=== PATIENT | male | born 1965 | race Caucasian/White ===

== ENCOUNTER 2021-12-12 14:52 | Outpatient (CLI) | payer OTHER, SELFPAY | END 2021-12-12 14:53 | disposition home or self-care (01) | LOC: LKVREF 14:54 | PROVIDERS: PCP Internal Medicine; Visit Provider Family Medicine | DX: R10.9 Unspecified abdominal pain (principal); N39.0 Urinary tract infection, site not specified | CPT/HCPCS: 87086 ==

== ENCOUNTER 2021-12-12 15:54 | Inpatient (IN) | payer OTHER, SELFPAY ==
[2021-12-12 16:12] VITALS: BP 127/74; PULSE 82; RESP 18; TEMP 36.9; O2SAT 96; BMI 45.3
--- NOTE | 2021-12-12 16:39 | CRLHL7_ITS ---
For Patients: As a result of the Century Cures Act, medical imaging exams and procedure reports are released immediately into your electronic medical record. You may view this report before your referring provider. If you have questions, please contact your health care provider. INDICATION: Left lower quadrant pain, rule out diverticulitis. History of thyroid, skin, and testicular cancer. TECHNIQUE: CT of the abdomen and pelvis without intravenous contrast. Coronal and sagittal reconstructions. COMPARISON: CT chest, abdomen, pelvis 06/16/2021. FINDINGS: Diffuse hepatic steatosis. Calcified hepatic and splenic granulomas. Cholecystectomy. No biliary dilation. The unenhanced pancreas and adrenal glands are normal in appearance. Incomplete horseshoe kidney morphology. Left renal cortical scarring. Small left renal cyst. There is a 1.3 cm hyperdense lesion in the upper pole of the left kidney which is not well seen on prior exam (series 2, image 53). No hydronephrosis or ureteral dilation. No obstructing urinary calculi identified. The bladder is normal in appearance. Prostate calcifications. Colonic diverticulosis. There is mild wall thickening of the proximal sigmoid colon with surrounding inflammatory fat stranding compatible with acute diverticulitis. There is a focus of extraluminal gas adjacent to the proximal sigmoid colon, with a mild amount of free air scattered throughout the abdomen. Findings are compatible with perforation. No significant free fluid or evidence of abscess. Negative appendix. No small bowel dilation. Postoperative changes of the left inguinal canal. Aortoiliac vascular calcifications. No lymphadenopathy. Degenerative changes of the spine and pubic symphysis. The lung bases are clear. Calcified left hilar lymph nodes compatible with prior granulomatous disease. IMPRESSION: 1. Acute diverticulitis of the proximal sigmoid colon. Mild amount of free air compatible with perforation. No evidence of abscess. 2. Diffuse hepatic steatosis. 3. Indeterminate small hyperdense lesion in the left kidney. This could be further evaluated with nonemergent renal ultrasound. 4. Findings discussed with Amber Urias at 6:09 p.m. on 12/12/2021. Please note that all CT scans at this facility use dose modulation, iterative reconstruction, and/or weight-based dosing when appropriate to reduce radiation dose to as low as reasonably achievable. Dictated by Windy Machado MD @ 12/12/2021 6:01:07 PM (Electronically Signed)
[2021-12-12 16:55] LABS: Lactate* 1.4 mmol/L (0.5-1.9)
--- NOTE | 2021-12-12 17:04 | ED.GENADULT ---
HPI - General Adult General Chief complaint: Abdominal Pain <Amber Urias MD - Last Filed: 12/12/21 20:09> Stated complaint: LOWER ABDOMINAL PAIN <Amber Urias MD - Last Filed: 12/12/21 20:09> Time Seen by Provider: 12/12/21 16:31 <Amber Urias MD - Last Filed: 12/12/21 20:09> Source: patient <Amber Urias MD - Last Filed: 12/12/21 20:09> Mode of arrival: ambulatory <Amber Urias MD - Last Filed: 12/12/21 20:09> Limitations: no limitations <Amber Urias MD - Last Filed: 12/12/21 20:09> History of Present Illness HPI narrative: 56-year-old male coming in today complaining of abdominal pain that started this morning. Pain is located in the suprapubic region radiates the left lower quadrant. He feels nauseated with decreased appetite today. Nothing seems to make it better, movement makes it worse. Patient states that he has 3 bowel movements yesterday and none today-states that this is a fairly normal routine for him. He denies any increased frequency, urgency or dysuria. Patient states that he has had UTIs in the past which have been otherwise asymptomatic. He denies any penile discharge. He has not vomited. Denies any fevers or chills. He was seen in the clinic earlier today and was found to have a UTI with urine grossly positive for signs of infection, elevated CBC. It was recommended that he follow-up in the ER today for potential imaging given the amount of pain he is in. Patient states that the pain is quite significant and takes his breath away. Past medical history is significant for obstructive sleep apnea, obesity, hypertension, hypothyroidism, history of horseshoe kidney. He has also had testicular cancer, papillary carcinoma of the thyroid, leiomyosarcoma. He has had a total thyroidectomy, bilateral knee replacements, bilateral shoulder surgeries. <Amber Urias MD - Last Filed: 12/12/21 20:09> Related Data Home medications: Home Medications Medication Instructions Recorded Confirmed cholecalciferol (vitamin D3) 125 125 mcg PO QDAY 12/12/21 12/12/21 mcg (5,000 unit) capsule hydrochlorothiazide 25 mg tablet 25 mg PO QAM 12/12/21 12/12/21 levothyroxine 175 mcg capsule 175 mcg PO QDAY 12/12/21 12/12/21 losartan 50 mg tablet 50 mg PO QDAY 12/12/21 12/12/21 naproxen sodium 220 mg capsule 440 mg PO QDAY 12/12/21 12/12/21 (Aleve) testosterone cypionate 100 mg/mL 50 mg IM Q2W 12/12/21 12/12/21 intramuscular oil topiramate 100 mg capsule 100 mg PO QDAY 12/12/21 12/12/21 sprinkle,extended release 24 hr <Amber Urias MD - Last Filed: 12/12/21 20:09> Allergies/adverse reactions: Allergies Allergy/AdvReac Type Severity Reaction Status Date / Time No Known Drug Allergies Allergy Verified 12/12/21 16:21 <Amber Urias MD - Last Filed: 12/12/21 20:09> Review of Systems Status of ROS: Reports: 10 or more systems reviewed and unremarkable except as noted in History and below <Amber Urias MD - Last Filed: 12/12/21 20:09> [facility] Medical History: Medical History Abdominal pain <Amber Urias MD - Last Filed: 12/12/21 20:09> Social History: Social History Smoking Status: Former smoker Do you use any of these nicotine containing products: None Second hand tobacco smoke exposure: No How often do you have a drink containing alcohol: monthly or less How often do you have six or more drinks on one occasion: Never AUDIT-C Alcohol total score: 1 Non-prescribed substance use: denies use <Amber Urias MD - Last Filed: 12/12/21 20:09> Exam Narrative: Exam Narrative: Obese, well-developed patient in no acute distress. Alert and oriented. Answers questions appropriately. Mood and affect are appropriate. Thoughts are goal oriented and rational. No tangential or magical thinking noted. Patient speaks in full sentences without needing to catch their breath. HEENT: Normocephalic atraumatic. Pupils are equally round reactive to light. Extraocular muscles are intact. Conjunctivae are moist without any icterus noted. Moist mucous membranes. Posterior pharynx is normal. Neck is soft without any lymphadenopathy or thyromegaly. No masses are appreciated. Cardiovascular: Heart is regular rate and rhythm S1 and S2 are present without any murmurs. Lungs: Clear to auscultation bilaterally no wheezes rhonchi or rales are appreciated. Patient takes deep breaths without any discomfort. Abdomen: Protuberant and soft. He has suprapubic tenderness as well as left lower quadrant tenderness. He has normal bowel he has no peritoneal signs. Extremities: Bilateral lower extremities are without edema. Normal DP and PT pulses. Skin: Well perfused without any obvious rashes. <Amber Urias MD - Last Filed: 12/12/21 20:09> Const: Vital Signs, click to edit/add: Vital Signs - 24 hr 12/12/21 16:12 Temperature 98.5 F Pulse Rate [Right Pulse Oximeter] 82 Respiratory Rate 18 Blood Pressure [Ri ght Upper Arm] 127/74 Pulse Oximetry 96 <Amber Urias MD - Last Filed: 12/12/21 20:09> Course Course Hospital Course: I looked over the labs he had done in the clinic would include a CBC: His white cell count elevated at 15.85. Neutrophils at 83.3. Chemistries were normal aside from a slightly elevated creatinine at 1.4. UA grossly positive for signs of infection. We will go ahead and proceed with adding a lipase, LFTs, CRP and we will do an abdominal CT without contrast. <Amber Urias MD - Last Filed: 12/12/21 20:09> Vital Signs Vital signs: Initial Vital Signs Temperature 98.5 F 12/12/21 16:12 Temperature Source Temporal Artery Scan 12/12/21 16:12 Pulse Rate 82 12/12/21 16:12 Respiratory Rate 18 12/12/21 16:12 Blood Pressure 127/74 12/12/21 16:12 Blood Pressure Mean 91 12/12/21 16:12 Blood Pressure Position Sitting 12/12/21 16:12 Pulse Oximetry 96 12/12/21 16:12 Oxygen Delivery Method 12/12/21 16:12 Vital Signs Temperature 98.5 F 12/12/21 16:12 Pulse Rate 82 12/12/21 16:12 Respiratory Rate 18 12/12/21 16:12 Blood Pressure 127/74 12/12/21 16:12 Pulse Oximetry 96 12/12/21 16:12 Temperature 98.5 F 12/12/21 16:12 Pulse Rate 82 12/12/21 16:12 Respiratory Rate 18 12/12/21 16:12 Blood Pressure 127/74 12/12/21 16:12 Pulse Oximetry 96 12/12/21 16:12 <Amber Urias MD - Last Filed: 12/12/21 20:09> Medical Decision Making MDM Narrative Medical decision making narrative: Labs were unremarkable aside from a slightly elevated CRP. Unfortunately his CT scan did show diverticulitis of the proximal sigmoid colon with perforation. Dr. Damon was consulted. Patient will be admitted for further management. <Amber Urias MD - Last Filed: 12/12/21 20:09> Lab Data Lab results reviewed: Yes I reviewed the patient's lab results <Amber Urias MD - Last Filed: 12/12/21 20:09> Labs: Lab Results 12/12/21 12/12/21 Range/Units 16:50 16:50 Lactate 1.4 (0.5-1.9) mmol/L Total Bilirubin 1.2 (0.1-1.5) mg/dL Direct Bilirubin 0.4 (0.0-0.5) mg/dL AST 27 (12-35) U/L ALT 32 (4-50) U/L Alkaline Phosphatase 68 (40-150) U/L C-Reactive Protein 2.1 H (0.5-1.0) mg/dL Total Protein 7.1 (6.0-8.3) g/dL Albumin 4.5 (3.3-5.0) g/dL Lipase 62 (23-300) U/L <Amber Urias MD - Last Filed: 12/12/21 20:09> Imaging Data CT scan - abdomen: Attestation: I have reviewed the pertinent imaging results. <Amber Urias MD - Last Filed: 12/12/21 20:09> Radiologist's impression: FINDINGS: Diffuse hepatic steatosis. Calcified hepatic and splenic granulomas. Cholecystectomy. No biliary dilation. The unenhanced pancreas and adrenal glands are normal in appearance. Incomplete horseshoe kidney morphology. Left renal cortical scarring. Small left renal cyst. There is a 1.3 cm hyperdense lesion in the upper pole of the left kidney which is not well seen on prior exam (series 2, image 53). No hydronephrosis or ureteral dilation. No obstructing urinary calculi identified. The bladder is normal in appearance. Prostate calcifications. Colonic diverticulosis. There is mild wall thickening of the proximal sigmoid colon with surrounding inflammatory fat stranding compatible with acute diverticulitis. There is a focus of extraluminal gas adjacent to the proximal sigmoid colon, with a mild amount of free air scattered throughout the abdomen. Findings are compatible with perforation. No significant free fluid or evidence of abscess. Negative appendix. No small bowel dilation. Postoperative changes of the left inguinal canal. Aortoiliac vascular calcifications. No lymphadenopathy. Degenerative changes of the spine and pubic symphysis. The lung bases are clear. Calcified left hilar lymph nodes compatible with prior granulomatous disease. IMPRESSION: 1. Acute diverticulitis of the proximal sigmoid colon. Mild amount of free air compatible with perforation. No evidence of abscess. 2. Diffuse hepatic steatosis. 3. Indeterminate small hyperdense lesion in the left kidney. This could be further evaluated with nonemergent renal ultrasound. 4. Findings discussed with Amber Urias at 6:09 p.m. on 12/12/2021. <Amber Urias MD - Last Filed: 12/12/21 20:09> Discharge Plan Discharge Clinical Impression: Diverticulitis of colon with perforation <Amber Urias MD - Last Filed: 12/12/21 20:09> Patient Disposition: Admitted As Inpatient <Amber Urias MD - Last Filed: 12/12/21 20:09> Condition: Stable <Amber Urias MD - Last Filed: 12/12/21 20:09>
[2021-12-12 17:13] LABS: Albumin* 4.5 g/dL (3.3-5.0)
[2021-12-12 17:16] LABS: Alanine Aminotransferase* 32 U/L (4-50); Alkaline Phosphatase* 68 U/L (40-150); Aspartate Amino Transferase* 27 U/L (12-35); Bilirubin Direct* 0.4 mg/dL (0.0-0.5); Bilirubin Total* 1.2 mg/dL (0.1-1.5); Lipase* 62 U/L (23-300); Total Protein* 7.1 g/dL (6.0-8.3)
[2021-12-12 17:19] LABS: C Reactive Protein* 2.1 mg/dL (0.5-1.0)
[2021-12-12] MEDS: ERTAPENEM 1 GM in 0.9 % SODIUM CHLORIDE Mini-bag 100 ML IVPB (19:51)
[2021-12-12 19:54] VITALS: BP 174/84; PULSE 90; O2SAT 94
--- NOTE | 2021-12-12 20:54 | P.GSCN_ITS ---
History of Present Illness Consult details Consult date: 12/12/21 Narrative: Patient is a 56-year-old male who presented to clinic today with a one-day history worsening abdominal pain. He woke up this morning he said to a slight ache in his lower abdomen. Throughout the day he felt like his stomach was getting more distended and the pain was getting more severe. Presented to clinic and a UA was performed. The UA was grossly positive, but due to the patient's significant discomfort and exam he was told to go to the emergency department. He has never had pain like this before. He denies any nausea or vomiting. He does report a decrease in appetite. Denies any diarrhea or co nstipation, last bowel movement was earlier today. He has had a colonoscopy, 4 years ago which was within normal limits. Review of Systems Status of ROS: Reports: 6 or more systems reviewed and unremarkable except as noted in History and below Const: Reports: fatigue Endo: Reports: fatigue PFSH PFSH Medical History Abdominal pain Social History Smoking Status: Former smoker Do you use any of these nicotine containing products: None Second hand tobacco smoke exposure: No How often do you have a drink containing alcohol: monthly or less How often do you have six or more drinks on one occasion: Never AUDIT-C Alcohol total score: 1 Non-prescribed substance use: denies use Meds Home Medications and Allergies Home Medications Medication Instructions Recorded Confirmed Type cholecalciferol (vitamin D3) 125 125 mcg PO QDAY 12/12/21 12/12/21 History mcg (5,000 unit) capsule hydrochlorothiazide 25 mg tablet 25 mg PO QAM 12/12/21 12/12/21 History levothyroxine 175 mcg capsule 175 mcg PO QDAY 12/12/21 12/12/21 History losartan 50 mg tablet 50 mg PO QDAY 12/12/21 12/12/21 History naproxen sodium 220 mg capsule 440 mg PO QDAY 12/12/21 12/12/21 History (Aleve) testosterone cypionate 100 mg/mL 50 mg IM Q2W 12/12/21 12/12/21 History intramuscular oil topiramate 100 mg capsule 100 mg PO QDAY 12/12/21 12/12/21 History sprinkle,extended release 24 hr Allergies Allergy/AdvReac Type Severity Reaction Status Date / Time No Known Drug Allergies Allergy Verified 12/12/21 16:21 Exam Narrative: Exam Narrative: General: Alert, oriented, some moderate distress and unable to get comfortable. Respiratory: Equal breath rise bilaterally, maintained on room air CV: Well perfused, tachycardia but regular rhythm Abdomen: Distended obese abdomen, soft but diffusely tender to palpation with guarding and rebound. Previous surgical incisions are well healed. Const: Vital Signs, click to edit/add: Vital Signs - 24 hr 12/12/21 16:12 Temperature 98.5 F Pulse Rate [Right Pulse Oximeter] 82 Respiratory Rate 18 Blood Pressure [Ri ght Upper Arm] 127/74 Pulse Oximetry 96 Documenting provider has reviewed patient's vital signs: yes Results Labs Labs: Abnormal lab results 12/12/21 Range/Units 16:50 C-Reactive Protein 2.1 H (0.5-1.0) mg/dL Diabetes panel 12/12/21 Range/Units 16:50 AST 27 (12-35) U/L ALT 32 (4-50) U/L Alkaline Phosphatase 68 (40-150) U/L Total Protein 7.1 (6.0-8.3) g/dL Albumin 4.5 (3.3-5.0) g/dL Calcium panel 12/12/21 Range/Units 16:50 Albumin 4.5 (3.3-5.0) g/dL Adrenal panel 12/12/21 Range/Units 16:50 Total Bilirubin 1.2 (0.1-1.5) mg/dL AST 27 (12-35) U/L ALT 32 (4-50) U/L Alkaline Phosphatase 68 (40-150) U/L Total Protein 7.1 (6.0-8.3) g/dL Albumin 4.5 (3.3-5.0) g/dL All other labs normal. Imaging Abdomen CT scan report/results: report reviewed and image reviewed Assessment and Plan Assessment and plan (1) Diverticulitis of colon with perforation: Status: Acute Plan Patient is a 56-year-old male who presents with a one-day history worsening diffuse abdominal pain. Labs are significant for leukocytosis and elevated CRP. CT scan demonstrates diverticulitis of the proximal sigmoid colon with perforation and evidence of free air and fluid. On exam patient does demonstrate peritonitis. Given these findings and the patient's presentation different treatment options were reviewed, with the recommendation to proceed with emergency surgery. Risks and benefits of the procedure were discussed at length with the patient and his . Would plan to proceed with an exploratory laparotomy, colonic resection and end ostomy versus diverting ileostomy. Risks of procedure included but were not limited to: Bleeding, infection, risk of damage to surrounding structures, possible need for additional procedures and postop complication such as kidney injury, pneumonia, DVT and PE. All questions and concerns were addressed with patient agreeing to proceed. -IV ertapenem given in the emergency department -NPO and IV fluids -OR for exploratory laparotomy
[2021-12-12 20:59] LABS: PCR FLU A Negative PCR FLU A (Negative); PCR FLU B Negative PCR FLU B (Negative); SARS PCR* Negative SARS-CoV-2 (Negative)
--- NOTE | 2021-12-12 21:55 | W.PM.NB ---
Nerve Block Nerve Block Time Seen by Provider: 20:50 Date Seen: 12/12/21 Type of block requested by surgeon for post-operative analgesia: TAP Side: bilateral Time out performed: Yes Verification of patient name: Yes Verification of date of : Yes Site marking: site marked Name of person performing procedure: robe Assistants, if any: paco Continuous monitoring Was continuous monitoring of O2 sat, B/P, classroom monitor, recorded every 15 minutes?: Yes Procedure Checklist: sterile prep and needles Ultrasound guided. Images saved: Yes Medications given in 5ml increments after negative aspiration: Marcaine %: 0.25 mL: 30 Needle gauge: 20 and Exparel mL: 10 Needle gauge: 20 Patient tolerated procedure well: Yes Block Charges Block Charge (with Pro Fee): TAP Bilateral Use of Ultrasound Machine for Block: Yes- US Guidance/pain block
--- NOTE | 2021-12-12 22:04 | PM.IMCN1 ---
Date of Consult Patient: [facility] Patient Consult date: 12/12/21 Requesting Physician: General Surgery Primary Care Provider: Oliver Lilly MD Consult Narrative Reason for consult: Postoperative management of medical conditions Narrative: Shad Neri Jr is a 56 year old man was in his usual state of health until he awakened this morning. At 1st he thought he might have a recurrent bladder infection. He has had these for a while since his orchiectomy for left testicular leiomyosarcoma in 2016. Described as suprapubic and radiating to left quadrant. 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 Was only able to work until noon hour, pain became so intense that he decided to seek medical attention at that time. Evaluated in [facility] found to have a white blood cell count that was rather elevated plus urinalysis suggested urinary tract infection. Exam however suggested diffuse abdominal discomfort. Patient referred to the emergency department. In the emergency department patient had peritoneal signs. Analgesics helped decrease the pain. CT scan of the abdomen and pelvis obtained revealed ruptured sigmoid diverticulum with free air in the abdomen. Surgeon assessed and recommended urgent surgery. He finally agreed to this. He deliberated for a while with his and eventually elected to proceed with urgent surgery. Review of Systems Status of ROS: Reports: 10 or more systems reviewed and unremarkable except as noted in History and below Narrative: His hard worker. Has no real physical limitations to carry out his construction work. Denies chest heaviness, pressure, tightness, or pain. Denies syncope or near-syncope. Denies nausea vomiting. Denies dyspnea. Denies palpitations. Denies urinary urgency, frequency, hematuria, or dysuria. Had 3 bowel movements yesterday and none today. Denies fevers, rigors, diaphoresis. No recent trauma or injury. No recent blood loss. No recent travel. [facility] Medical History Abdominal pain Colonoscopy causing post-procedural bleeding CPAP (continuous positive airway pressure) dependence Diverticulosis Essential (primary) hypertension Horseshoe kidney Hypothyroidism associated with surgical procedure Leiomyosarcoma Obesity, morbid, BMI 40.0-49.9 Obstructive sleep apnea Papillary thyroid carcinoma Polycythemia Recurrent urinary tract infection Surgical History Status post total knee replacement, left Social History Smoking Status: Former smoker Do you use any of these nicotine containing products: None Second hand tobacco smoke exposure: No How often do you have a drink containing alcohol: monthly or less How often do you have six or more drinks on one occasion: Never AUDIT-C Alcohol total score: 1 Non-prescribed substance use: denies use Meds Home Medications and Allergies Home Medications Medication Instructions Recorded Confirmed Type cholecalciferol (vitamin D3) 125 125 mcg PO QDAY 12/12/21 12/12/21 History mcg (5,000 unit) capsule hydrochlorothiazide 25 mg tablet 25 mg PO QAM 12/12/21 12/12/21 History levothyroxine 175 mcg capsule 175 mcg PO QDAY 12/12/21 12/12/21 History losartan 50 mg tablet 50 mg PO QDAY 12/12/21 12/12/21 History naproxen sodium 220 mg capsule 440 mg PO QDAY 12/12/21 12/12/21 History (Aleve) testosterone cypionate 100 mg/mL 50 mg IM Q2W 12/12/21 12/12/21 History intramuscular oil topiramate 100 mg capsule 100 mg PO QDAY 12/12/21 12/12/21 History sprinkle,extended release 24 hr Allergies Allergy/AdvReac Type Severity Reaction Status Date / Time No Known Drug Allergies Allergy Verified 12/12/21 16:21 Exam Narrative: Exam Narrative: He is sitting at the exam table with legs dangling. Talkative. Appropriately anxious. Cooperative. No acute distress. Alert, oriented to self, place, time, situation. Mood and affect are congruent. Hearing is preserved, symmetric, bilaterally. Tight oral aperture. Moist buccal mucosa. Dentition in good repair. Midline nasal septum. Normal nasal mucosa. Normal conjunctivae. No icterus or injection. Pupils equally round and reactive to light and accommodation. Extraocular muscles are intact. Full neck. Midline trachea. Thyroidectomy scar. Lungs clear to auscultation. No CVA tenderness. Heart tones with regular rhythm, normal S1-S2, without murmur, gallop, or rub. Abdomen is quiet. Distended. Tender to touch. Extremities with trace pedal and pretibial edema bilaterally. No focal motor neurologic deficits. Skin is warm, dry, intact. Const: Vital Signs, click to edit/add: Vital Signs - 24 hr 12/12/21 16:12 12/12/21 19:54 Temperature 98.5 F Pulse Rate [Right Pulse Oximeter] 82 90 Respiratory Rate 18 Blood Pressure [Ri ght Upper Arm] 127/74 174/84 H Pulse Oximetry 96 94 Documenting provider has reviewed patient's vital signs: yes Labs Labs: Liver Function 12/12/21 Range/Units 16:50 Total Bilirubin 1.2 (0.1-1.5) mg/dL Direct Bilirubin 0.4 (0.0-0.5) mg/dL AST 27 (12-35) U/L ALT 32 (4-50) U/L Alkaline Phosphatase 68 (40-150) U/L Albumin 4.5 (3.3-5.0) g/dL Imaging CT scan - abdomen: Attestation: I have reviewed the pertinent imaging results. Radiologist's impression: Perforated sigmoid diverticulum with free air in the abdomen. Assessment and Plan Assessment and plan (1) Diverticulitis of colon with perforation: Status: Acute (2) Abdominal pain: Status: Acute (3) UTI (urinary tract infection): Status: Acute (4) Recurrent urinary tract infection: Status: Acute (5) Horseshoe kidney: Problem comment: s/p multiple surgeries for the same in remote past Status: Acute (6) Leiomyosarcoma: Problem comment: Left testicle, spermatic cord, pathological stage [id number], dx 04/2016, s/p left orchiectomy and inguinal lymph node dissection. No adjuvant chemotherapy given since benefit is considered limited. Status: Acute (7) Obesity, morbid, BMI 40.0-49.9: Status: Acute (8) CPAP (continuous positive airway pressure) dependence: Status: Acute (9) Obstructive sleep apnea: Problem comment: on CPAP Status: Acute (10) Essential (primary) hypertension: Status: Acute (11) Polycythemia: Problem comment: Followed by hematology/oncology Status: Acute (12) Hypothyroidism associated with surgical procedure: Problem comment: Total thyroidectomy followed by HUITRON for treatment of thyroid papillary carcinoma Status: Acute (13) Papillary thyroid carcinoma: Problem comment: Dx 11/2016, s/p total thyroidectomy followed by HUITRON Status: Acute Plan 1. Discussed with the emergency department physician. Also discussed with the general surgeon. 2. Discussed with patient and his . Addressed their concerns. Answered their questions. They are agreeable to proceed with the urgent surgery. 3. Will likely need aggressive postoperative management efforts including pulmonary hygiene. I asked the patient's to make arrangements for bringing the patient's CPAP machine to the hospital so he can use this postoperatively. 4. Will consult respiratory therapy to assist with postoperative pulmonary hygiene efforts. 5. Will hold antihypertensives for now. Will monitor his need for this as time evolves. 6. Will administer his levothyroxine intravenously, half of the oral dose.
[2021-12-13] VITALS (22 sets, daily range): BP systolic 101–151; BP diastolic 45–88; PULSE 6–77; RESP 16–20; TEMP 36.3–37.1; O2SAT 91–98
--- NOTE | 2021-12-13 02:14 | W.ANESCHARGE ---
Anesthesia Charges Start Date/Time Anesthesia Start Date: 12/12/21 Anesthesia Start Time: 20:54 Stop Date/Time Anesthesia Stop Date: 12/13/21 Anesthesia Stop Time: 02:05 Summary Emergency: Yes
[2021-12-13] MEDS: fentaNYL 100 MCG/2 ML inj 50 MCG IVP ×2 (02:15→02:24)
[2021-12-13] MEDS: HYDROmorphone 0.5 mg/0.5 ml inj IVP ×9 (03:13→23:08)
--- NOTE | 2021-12-13 06:15 | PC.NURSE ---
Pt with stable VS. taking in a few ice chips. Pain has been controlled with Dilaudid 0.5mg IV every couple of hours. He rates his pain 2/10 in his abdomin and in his shoulders. Large abdominal drsg is CDI. Ostomy put out 60cc of bile colored liquid. He does have a few faint BT heard in all quads this am. VSS. T&R with minimal assist.
--- NOTE | 2021-12-13 08:27 | PM.IMPN1 ---
Progress Note: A&P Assessment and plan (1) Diverticulitis of colon with perforation: Status: Acute Assessment and Plan: Will continue to follow with General surgery broad-spectrum antibiotics and plan to repeat laboratory studies in the morning. Patient is receiving adequate DVT prophylaxis. (2) Recurrent urinary tract infection: Problem details: No current signs or symptoms patient is on broad-spectrum antibiotics. Status: Acute Assessment and Plan: Will continue to manage as an outpatient. (3) Horseshoe kidney: Problem details: s/p multiple surgeries for the same in remote past Status: Acute Assessment and Plan: Stable (4) Obesity, morbid, BMI 40.0-49.9: Status: Acute Assessment and Plan: Noted (5) Obstructive sleep apnea: Problem details: on CPAP Status: Acute Assessment and Plan: Continue inpatient CPAP. (6) Essential (primary) hypertension: Problem details: Patient is on multiple medications as an outpatient. Status: Acute Assessment and Plan: Blood pressure stable. Will continue to monitor and manage expectantly. (7) Hypothyroidism associated with surgical procedure: Problem details: Total thyroidectomy followed by HUITRON for treatment of thyroid papillary carcinoma Status: Acute Assessment and Plan: Continue Synthroid replacement. Subjective Time Seen by Provider: 08:27 Date Seen: 12/13/21 Exam Narrative: Exam Narrative: Patient is a 56-year-old gentleman who is in my primary care practice who presented yesterday with abdominal pain. He has found have a perforated diverticulum. He underwent surgical treatment as noted in the medical record. He is a colostomy and is on broad-spectrum antibiotics. He does have a complex past medical history including testicular cancer and thyroid cancer. He is on this morning feeling reasonably well although some what overwhelmed by his current situation. Const: Vital Signs, click to edit/add: Vital Signs - 24 hr 12/12/21 16:12 12/12/21 19:54 12/13/21 02:03 Temperature 98.5 F 97.5 F L Pulse Rate 77 Pulse Rate [Pulse Oximeter] Pulse Rate [Right Pulse Oximeter] 82 90 Respiratory Rate 18 18 Blood Pressure 114/60 Blood Pressure [Ri ght Arm] Blood Pressure [Ri ght Upper Arm] 127/74 174/84 H Pulse Oximetry 96 94 96 12/13/21 02:10 12/13/21 02:15 12/13/21 02:20 Temperature Pulse Rate 71 64 73 Pulse Rate [Pulse Oximeter] Pulse Rate [Right Pulse Oximeter] Respiratory Rate 16 18 20 Blood Pressure 101/53 L 118/54 L 129/64 Blood Pressure [Ri ght Arm] Blood Pressure [Ri ght Upper Arm] Pulse Oximetry 95 98 91 12/13/21 02:25 12/13/21 02:30 12/13/21 02:35 Temperature Pulse Rate 63 63 68 Pulse Rate [Pulse Oximeter] Pulse Rate [Right Pulse Oximeter] Respiratory Rate 20 20 18 Blood Pressure 122/66 122/66 124/72 Blood Pressure [Ri ght Arm] Blood Pressure [Ri ght Upper Arm] Pulse Oximetry 98 96 94 12/13/21 02:50 12/13/21 03:00 12/13/21 03:15 Temperature 97.3 F L 97.3 F L 97.3 F L Pulse Rate 66 Pulse Rate [Pulse Oximeter] 67 64 Pulse Rate [Right Pulse Oximeter] Respiratory Rate 18 18 18 Blood Pressure Blood Pressure [Ri ght Arm] 134/88 136/84 124/74 Blood Pressure [Ri ght Upper Arm] Pulse Oximetry 93 93 12/13/21 03:30 12/13/21 03:35 12/13/21 04:00 Temperature 97.3 F L 97.4 F L 97.9 F Pulse Rate Pulse Rate [Pulse Oximeter] 6 L 65 64 Pulse Rate [Right Pulse Oximeter] Respiratory Rate 18 18 18 Blood Pressure Blood Pressure [Ri ght Arm] 124/74 126/74 128/74 Blood Pressure [Ri ght Upper Arm] Pulse Oximetry 92 95 12/13/21 06:30 12/13/21 07:35 12/13/21 07:56 Temperature 97.5 F L 97.5 F L Pulse Rate 64 Pulse Rate [Pulse Oximeter] 66 68 Pulse Rate [Right Pulse Oximeter] Respiratory Rate 18 18 Blood Pressure Blood Pressure [Ri ght Arm] 101/45 L 106/56 L Blood Pressure [Ri ght Upper Arm] Pulse Oximetry 92 95 Labs Labs: Laboratory Results - last 24 hr 12/12/21 12/12/21 12/12/21 16:50 16:50 Unknown Lactate 1.4 Total Bilirubin 1.2 Direct Bilirubin 0.4 AST 27 ALT 32 Alkaline Phosphatase 68 C-Reactive Protein 2.1 H Total Protein 7.1 Albumin 4.5 Lipase 62 SARS-CoV-2 (PCR) Negative SARS-CoV-2 Influenza Type A (PCR) Negative PCR FLU A Influenza Type B (PCR) Negative PCR FLU B
[2021-12-13] MEDS: LACTATED RINGERS 1000 ML 1,000 ML 125 ML IV ×3 (08:31→23:12)
--- NOTE | 2021-12-13 09:12 | P.GSOP_ITS ---
Operative Note Date of procedure: 12/15/21 Type of Procedure: 1. Exploratory laparotomy 2. Sigmoid colectomy with primary anastomosis 3. Diverting loop ileostomy Procedure Description: After discussing the risks and benefits of the procedure, the patient signed informed consent.? The operative site was marked and the patient was brought to the operating room and placed on the operating table in supine position.? Care was taken to pad the patient's pressure points.?? The patient was then intubated by anesthesia.??An abdominal tap block was applied by Anesthesia to help assist with postoperative pain control. A Garcia catheter was placed. The operative site was then prepped and draped in the usual sterile fashion.? A time-out was then performed. A midline incision was made superior to the umbilicus and down to pubic symphysis with a 10 scalpel. Dissection through subcutaneous tissue was carried out with cautery. The fascia was identified and cauterized. The peritoneum was then incised sharply with Metzenbaum scissors to enter the abdomen. A moderate amount of murky fluid was present within the abdomen upon entry. The incision was carried superior and inferior to allow for adequate visualization. The Omni device was also placed onto the field to assist with retraction. Small bowel appeared healthy and intact. There was a significant amount of intraoperative fat present, with a large omentum within the abdomen. The omentum and small bow el was then packed into the right upper quadrant. The sigmoid colon was identified and an inflamed area with surrounding fibrinous exudate, purulence and small amount of stool was identified in the proximal portion of the sigmoid colon. The surrounding adhesions were dissected off with electrocautery and through blunt dissection. The colon was then mobilized laterally along the white line of Toldt up towards the splenic flexure. This portion of the procedure was difficult secondary to the patient's body habitus and a significant amount of intra-abdominal fat. The transverse colon was identified and the omentum mobilized off the superior aspect of the transverse colon. The splenic colic ligaments were carefully dissected down with a right angle and electrocautery. Care was taken not to injure the spleen at this portion of the procedure and hemostasis was excellent at the end of dissection. Once the proximal dissection was complete attention was then turned to the distal aspect of the sigmoid colon. The patient did have a redundant amount of sigmoid colon with only a small amount of lateral mobilization needed. Throughout the colon the patient had a significant amount of epiploic fat, making the procedure difficult. There was also a significant amount of localized inflammation and fibrinous exudate, with inflamed associated mesentery. A proximal portion of the colon was identified for dissection. This part of the colon was healthy in appearance and soft. A hole in the mesentery was created and the proximal portion of the sigmoid transected with a hand-held SYLVESTER stapler. There was pinpoint bleeding along the staple line. This was controlled with a single interrupted 3-0 Vicryl stitch. A distal portion of the colon was also identified for dissection. A portion of the colon that was healthy in appearance and soft was chosen. A hole in the mesentery was created with cautery and the distal portion of the sigmoid transected with a hand-held SYLVESTER stapler. Staple lines were inspected and appeared intact with no active bleeding. The mesentery was then serially divided with clamps and 2-0 Vicryl ties. There was a moderate amount of bleeding with the vision of the mesenteric vessels. The bleeding was controlled with interrupted 3-0 Vicryl exilvt-mo-pyurs stitches. Once the mesentery was divided the specimen was then passed off to be sent for pathology. Hemostasis was assured and the area irrigated with normal saline. The proximal and distal ends of the transected colon were then reapproximated in a [id number] fashion. Both portions of the colon came together easily with no tension and adequate appearing blood flow through the mesentery. The mesenteric vessels were palpated and widely patent. The proximal and distal end of the colon did have a significant amount of epiploic fat, which was tied off and excised. On the proximal end about 10 cm away from the staple line an enterotomy was made on the anti mesenteric side. This was extended to allow for 1 end of the stapler to be introduced into the lumen. On the distal end of the colon an enterotomy was made about 1 cm away from the cut stable edge. The 2nd arm of the stapler was introduced into the lumen and the 100 mm SYLVESTER stapler brought together. An anastomosis approximately 40 mm in size was created. As the stapler was removed the staple line was evaluated with no evidence of bleeding. The common enterotomy was then closed with 3-0 silk Lembert stitches. A single crotch stitch was applied. The mesenteric defect was closed with a running 3-0 Vicryl stitch. The newly anastomosed colon was then placed within the pelvis, again perfusion appeared adequate with no tension appreciated. Due to the presence of a contaminated field and need for an emergent procedure, the decision was made to proceed with a diverting loop ileostomy. Approximately 20 cm from the terminal ileum a prominent, wide-based small bowel diverticulum was identified. The decision was made to have this portion of the bowel become of the loop ileostomy. A site on the abdomen, just lateral and superior to the umbilicus was identified to bring up the ostomy. A circular segment of skin and underlying subcutaneous fat was excised with cautery. Anterior fascia was identified an a cruciate incision made. The abdominal muscle was divided to identify the posterior fascia where an other cruciate incision was made with cautery. The segment of proposed small bowel was then easily brought up to the abdominal wall without tension or mesenteric twisting Three fascial stitches were made with interrupted 3 0 Vicryl, in order to tack the small bowel to the abdominal wall. Prior to maturation of the ostomy the midline incision was closed. The fascia was brought together with two looped 0 Maxon running suture. The skin was brought together with a hand-held skin stapler. Sterile dressings were applied. Attention was then directed towards the maturation of the loop ileostomy. The diverticulum was transected on the anti mesenteric edge approximately 2[address] everted. The edge of the ostomy was secured to the dermis with circumferential interrupted 3 0 Vicryl suture. The stoma was widely patent and mucosa appeared healthy. An ostomy appliance was applied. ? All counts were correct at the end of the case. The patient was then woken and transported to the recovery area in stable condition. ? The patient tolerated the procedure well. Findings: Perforated proximal sigmoid diverticulitis with purulence and stool contamination. Anesthesia: GETA Surgeon: Malrene Damon MD Estimated blood loss (mL): 150 Condition: stable Disposition: PACU
[2021-12-13 09:20] LABS: Basophils Percent Auto 0.1 % (0.0-3.0); Hematocrit 41.3 % (37.0-53.0); Hemoglobin* 13.5 gm/dL (13.5-17.5); Immature Granulocytes Abs Auto 0.02 K/uL (0.00-0.30); Lymphocytes Percent Auto 3.2 % (20-44); Mean Corpuscular HGB Conc 33 gm/dL (32-36); Mean Corpuscular Hemoglobin 28 pg (26-34); Mean Corpuscular Volume 85 fL (80-100); Monocytes Percent Auto 6.5 % (0.0-11.0); Neutrophils Percent Auto 90.1 % (42.0-72.0); Platelet Count* 205 K/uL (140-440); RDW Coefficient of Variation % 14.2 % (11.5-15.5); Red Blood Count 4.87 m/uL (4.30-5.90); White Blood Count* 19.52 K/uL (4.50-11.00)
[2021-12-13 09:32] LABS: Chloride* 102 mmol/L (96-114); Slide Review Reflex No; Sodium* 134 mmol/L (135-149)
[2021-12-13 09:35] LABS: Blood Urea Nitrogen* 21 mg/dL (7-30); Carbon Dioxide* 25 mmol/L (20-32); Creatinine* 1.4 mg/dL (0.5-1.5); Est. Creatinine Clearance* 59.62; Estimated Glomerular Filt Rate 59 ml/min; Glucose* 202 mg/dL (60-115)
[2021-12-13 09:36] LABS: Calcium* 8.5 mg/dL (8.4-10.6)
[2021-12-13] MEDS: LEVOTHYROXINE 100 MCG TABLET PO (10:27)
[2021-12-13] MEDS: LEVOTHYROXINE 75 MCG TABLET PO (10:27)
--- NOTE | 2021-12-13 10:39 | P.GSPN_ITS ---
Subjective Subjective Interval history: Patient is doing well this morning. He does have pain in his abdomen, but is currently working on getting this controlled with medications. He has not yet gotten up and walked out of bed. Garcia remains in place. He denies any fevers or chills. Not feeling hungry, no reported nausea or vomiting. Overall in very good spirits. Exam Narrative: Exam Narrative: General: Alert and oriented, no acute distress. Lying comfortably in bed. Nontoxic. Abdomen: Midline incision clean/dry/intact. Right-sided ostomy in place with overlying bag. Stoma with beefy red mucosa, and some bowel sweat within bag. Abdomen is distended but soft, tender to palpation without guarding or rebound. Const: Vital Signs, click to edit/add: Vital Signs - 24 hr 12/12/21 16:12 12/12/21 19:54 12/13/21 02:03 Temperature 98.5 F 97.5 F L Pulse Rate 77 Pulse Rate [Pulse Oximeter] Pulse Rate [Right Pulse Oximeter] 82 90 Respiratory Rate 18 18 Blood Pressure 114/60 Blood Pressure [Ri ght Arm] Blood Pressure [Ri ght Upper Arm] 127/74 174/84 H Pulse Oximetry 96 94 96 12/13/21 02:10 12/13/21 02:15 12/13/21 02:20 Temperature Pulse Rate 71 64 73 Pulse Rate [Pulse Oximeter] Pulse Rate [Right Pulse Oximeter] Respiratory Rate 16 18 20 Blood Pressure 101/53 L 118/54 L 129/64 Blood Pressure [Ri ght Arm] Blood Pressure [Ri ght Upper Arm] Pulse Oximetry 95 98 91 12/13/21 02:25 12/13/21 02:30 12/13/21 02:35 Temperature Pulse Rate 63 63 68 Pulse Rate [Pulse Oximeter] Pulse Rate [Right Pulse Oximeter] Respiratory Rate 20 20 18 Blood Pressure 122/66 122/66 124/72 Blood Pressure [Ri ght Arm] Blood Pressure [Ri ght Upper Arm] Pulse Oximetry 98 96 94 12/13/21 02:50 12/13/21 03:00 12/13/21 03:15 Temperature 97.3 F L 97.3 F L 97.3 F L Pulse Rate 66 Pulse Rate [Pulse Oximeter] 67 64 Pulse Rate [Right Pulse Oximeter] Respiratory Rate 18 18 18 Blood Pressure Blood Pressure [Ri ght Arm] 134/88 136/84 124/74 Blood Pressure [Ri ght Upper Arm] Pulse Oximetry 93 93 12/13/21 03:30 12/13/21 03:35 12/13/21 04:00 Temperature 97.3 F L 97.4 F L 97.9 F Pulse Rate Pulse Rate [Pulse Oximeter] 6 L 65 64 Pulse Rate [Right Pulse Oximeter] Respiratory Rate 18 18 18 Blood Pressure Blood Pressure [Ri ght Arm] 124/74 126/74 128/74 Blood Pressure [Ri ght Upper Arm] Pulse Oximetry 92 95 12/13/21 06:30 12/13/21 07:35 12/13/21 07:56 Temperature 97.5 F L 97.5 F L Pulse Rate 64 Pulse Rate [Pulse Oximeter] 66 68 Pulse Rate [Right Pulse Oximeter] Respiratory Rate 18 18 Blood Pressure Blood Pressure [Ri ght Arm] 101/45 L 106/56 L Blood Pressure [Ri ght Upper Arm] Pulse Oximetry 92 95 12/13/21 08:30 Temperature 97.5 F L Pulse Rate Pulse Rate [Pulse Oximeter] 76 Pulse Rate [Right Pulse Oximeter] Respiratory Rate 16 Blood Pressure Blood Pressure [Ri ght Arm] 118/56 L Blood Pressure [Ri ght Upper Arm] Pulse Oximetry 93 Labs/Imaging Labs Labs: WBC increased this am (19). BMP within normal limits, Creatinine stable at 1.4 Imaging Imaging: No new. Progress Note: A&P Assessment and plan (1) Diverticulitis of colon with perforation: Problem details: Patient is postop day 1 exploratory laparotomy, colonic resection and diverting loop ileostomy. Vital signs stable overnight. Labs did demonstrate an increase in his WBC, but patient has remained afebrile. Stoma is patent with some bowel sweat in bag, no evidence of stool or gas. Status: Acute Plan -NPO, okay for sips and ice chips. Will await for return of bowel function prior to initiating diet. -IV fluids -Garcia overnight, okay to removed this morning. Continue to monitor urinary output. -pain controlled with IV Dilaudid, Tylenol and oxycodone p.r.n. will hold off on Toradol given slightly elevated creatinine 1.4. -encourage ambulation -[facility] [place] [place] [facility], will start chemical DVT prophylaxis with Lovenox this evening All other cares per hospitalist, appreciate their assistance. Please call with any acute clinical changes, questions or concerns.
--- NOTE | 2021-12-13 14:44 | PC.NURSE ---
PATIENT PLEASANT AND COOPERATIVE, ALERT AND ORIENTED, UP AD TOMMY WITH STEADY GAIT IN ROOM, SBA IN HALLWAYS X1 TOLERATING WELL, DRESSING TO MEDICAL ABDOMEN CDI, OSTOMY BAG INTACT WITH LIQUID GREEN OUTPUT, PASSING GAS THROUGH STOMA, BOWEL SOUNDS HYPO ACTIVE, RATING PAIN 2-4/10 IN ABDOMEN BEING MANAGED WITH PRN DILAUDID, TOLERATING ICE CHIP, PER SURGEON OKAY FOR ICE CHIPS OR SIPS OF CLEARS BUT VERY LITTLE, PATIENT WATCHED VIDEOS ON OSTOMY MANAGEMENT, WAS ALSO GIVEN WRITTEN EDUCATION, PATIENT ALSO VERBAL EDUCATION, VERBALIZED UNDERSTANDING OF INFORMATION, PATIENT OPEN TO CARRYING FOR OSTOMY BAG AND HAS A GREAT OUT LOOK, SUPPORTIVE AT BEDSIDE, ZAMUDIO REMOVED AND PATIENT HAS BEEN ABLE TO VOID SINCE.
--- NOTE | 2021-12-13 17:43 | PC.NURSE ---
Patient is here after having surgery and ostomy placed. I have started to teach him a little bit on how to manage his stoma. I did ask patient and patient's was present as to who will be managing this. They both agreed he will be the one. Started out by showing him 4 different videos for the [employer] web site. Videos were Living with your ostomy, How to measure your stoma, About your ileostomy, How to apply a one-piece pouch. Also printed off information from care notes for him to review. He has started to put a small amount out of stoma. He has had flatus x2. Also left a message down at the wound center for Donna Masters RN as she will most likely also be seeing him after he is discharge from here. He is up and ambulating. Explain to him that tomorrow we will actually go through the steps of changing his appliance. So far he has no questions.
--- NOTE | 2021-12-13 18:51 | PC.NURSE ---
Pt. is alert and oriented x3, pleasant and cooperative. Pt. ambulated in hallway x3. Tolerated well and gait was steady. Ostomy bag intact w/liquid greenish output. Dressing to abdomen. Pt. verbalizes passing gas through stoma. Bowel sounds are hypoactive. Pt. rated pain 7 when ambulating but 2 when resting. PRN dilaudid administered every 2.5hrs and tolerated well. Pt. tolerated ice chips and is ok'd to advance to clears but only a little. Pt. has been voiding regularly.
[2021-12-13] MEDS: ERTAPENEM 1 GM in 0.9 % SODIUM CHLORIDE Mini-bag 100 ML IVPB (19:52)
[2021-12-14] VITALS (7 sets, daily range): BP systolic 124–150; BP diastolic 49–78; PULSE 70–76; RESP 16–20; TEMP 36.6–37.1; O2SAT 93–98
[2021-12-14] MEDS: HYDROmorphone 0.5 mg/0.5 ml inj IVP ×4 (01:54→13:22)
--- NOTE | 2021-12-14 06:49 | PC.NURSE ---
Shift 7p-7a: Pt. AOx4, following commands, VSS. Pt. ambulating in hallway and to toilet w/o difficulty. Pt. c/o abd pain around surgical area, PRN pain meds administered throughout the night. Ileostomy stooling well, pt. had adequate urine output for shift. Pt. tolerating ice chips, but doesn't want to eat anything yet.
[2021-12-14 07:24] LABS: Basophils Absolute Auto 0.02 K/uL (0.00-0.30); Basophils Percent Auto 0.2 % (0.0-3.0); Eosinophils Absolute Auto 0.03 K/uL (0.00-0.50); Eosinophils Percent Auto 0.3 % (0.0-7.0); Hematocrit 37.3 % (37.0-53.0); Immature Granulocytes Abs Auto 0.03 K/uL (0.00-0.30); Lymphocytes Percent Auto 12.9 % (20-44); Mean Corpuscular HGB Conc 32 gm/dL (32-36); Mean Corpuscular Hemoglobin 28 pg (26-34); Mean Corpuscular Volume 86 fL (80-100); Monocytes Percent Auto 8.3 % (0.0-11.0); Platelet Count* 174 K/uL (140-440); RDW Coefficient of Variation % 14.5 % (11.5-15.5); Red Blood Count 4.32 m/uL (4.30-5.90); White Blood Count* 9.23 K/uL (4.50-11.00)
[2021-12-14] MEDS: LACTATED RINGERS 1000 ML 1,000 ML 125 ML IV ×2 (07:31→17:32)
[2021-12-14 07:43] LABS: Albumin* 3.5 g/dL (3.3-5.0); Chloride* 102 mmol/L (96-114)
[2021-12-14 07:44] LABS: Potassium* 3.5 mmol/L (3.6-5.1); Sodium* 136 mmol/L (135-149)
[2021-12-14 07:46] LABS: Alkaline Phosphatase* 54 U/L (40-150); Aspartate Amino Transferase* 33 U/L (12-35); Bilirubin Total* 0.8 mg/dL (0.1-1.5); Blood Urea Nitrogen* 19 mg/dL (7-30); Carbon Dioxide* 27 mmol/L (20-32); Creatinine* 1.3 mg/dL (0.5-1.5); Estimated Glomerular Filt Rate 65 ml/min; Glucose* 134 mg/dL (60-115); Total Protein* 6.3 g/dL (6.0-8.3)
[2021-12-14 07:47] LABS: Alanine Aminotransferase* 24 U/L (4-50); Calcium* 8.3 mg/dL (8.4-10.6)
[2021-12-14 07:53] LABS: Slide Review Reflex No
[2021-12-14] MEDS: LEVOTHYROXINE 100 MCG TABLET PO (07:53)
[2021-12-14] MEDS: LEVOTHYROXINE 75 MCG TABLET PO (07:53)
--- NOTE | 2021-12-14 09:54 | P.IMPN_ITS ---
Progress Note: A&P Assessment and plan (1) Diverticulitis of colon with perforation: Problem details: Patient is postop day 2 exploratory laparotomy, colonic resection and diverting loop ileostomy. Vital signs stable overnight. Overall patient is making steady progress. No significant bowel output. He has no abdominal pain no fevers or chills. His outpatient medications were reviewed with pharmacy. Will continue current management. Status: Acute Subjective Time Seen by Provider: 09:54 Date Seen: 12/14/21 Interval history: Patient is postoperative partial colonic resection secondary to perforated diverticulum. His diverting ileostomy did have some air past per his ileostomy earlier today. He is feeling well he is up and about and has been urinating without any difficulty. No other problems have developed no nausea no vomiting no fever chills. Exam Narrative: Exam Narrative: EXAM GENERAL: Patient appears comfortable and well. Overweight EYES: No scleral icterus. LYMPH: No supraclavicular or cervical lymphadenopathy. SKIN: Visible skin seen during exam normal or with benign process only. EXT: No dependent lower extremity pedal edema. HEART: Regular rate and rhythm with no murmurs, rubs, or gallops. LUNGS: Clear to auscultation bilaterally with no crackles or wheezes. ABD: Ileostomy noted surgical sites are clean and dry. Hypoactive to absent bowel sounds noted. PSYCH: Good eye contact, speech is not pressured. Const: Vital Signs, click to edit/add: Vital Signs - 24 hr 12/13/21 10:57 12/13/21 15:00 12/13/21 19:00 Temperature 98.6 F 98.8 F 98.1 F Pulse Rate Pulse Rate [Pulse Oximeter] 65 68 77 Pulse Rate [Right Brachial] Respiratory Rate 16 16 16 Blood Pressure [Ri ght Arm] 128/69 135/69 151/70 H Pulse Oximetry 93 93 94 12/13/21 23:00 12/13/21 23:35 12/14/21 03:00 Temperature 98.2 F 97.8 F Pulse Rate 61 Pulse Rate [Pulse Oximeter] 65 Pulse Rate [Right Brachial] Respiratory Rate 16 16 Blood Pressure [Ri ght Arm] 125/59 L 124/61 Pulse Oximetry 95 95 12/14/21 07:00 12/14/21 07:40 Temperature 98.8 F Pulse Rate 71 Pulse Rate [Pulse Oximeter] Pulse Rate [Right Brachial] 76 Respiratory Rate 20 Blood Pressure [Ri ght Arm] 141/78 H Pulse Oximetry 98 Labs Labs: Laboratory Results - last 24 hr 12/14/21 12/14/21 06:47 06:47 WBC 9.23 RBC 4.32 Hgb 12.0 L Hct 37.3 MCV 86 MCH 28 MCHC 32 RDW Coeff of Charmaine 14.5 Plt Count 174 Neut % (Auto) 78.0 H Lymph % (Auto) 12.9 L [place] % (Auto) 8.3 Eos % (Auto) 0.3 Baso % (Auto) 0.2 Neut # (Auto) 7.20 H Lymph # (Auto) 1.20 [place] # (Auto) 0.80 Eos # (Auto) 0.03 Baso # (Auto) 0.02 Abs Immat Gran (auto) 0.03 Sodium 136 Potassium 3.5 L Chloride 102 Carbon Dioxide 27 BUN 19 Creatinine 1.3 Estimated Creat Clear 64.20 Estimated GFR 65 Glucose 134 H Calcium 8.3 L Total Bilirubin 0.8 AST 33 ALT 24 Alkaline Phosphatase 54 Total Protein 6.3 Albumin 3.5
[2021-12-14] MEDS: OXYCODONE 5 MG TABLET PO ×3 (11:46→20:10)
--- NOTE | 2021-12-14 12:21 | P.GSPN_ITS ---
Subjective Subjective Date Seen: 12/14/21 Interval history: Patient is doing well this morning. Pain is getting better and well controlled. Has been tolerating sips and ice chips. No nausea or vomiting. Has passed gas through his stoma, some a liquid output but no stool. Denies any fevers or chills. Has been walking around without difficulty and showered this morning. Exam Narrative: Exam Narrative: General: Alert and oriented, no acute distress. Sitting comfortably in bed. Abdomen: Obese abdomen, midline incision dressing removed with hari in place. Some mild redness on the superior and inferior aspects of the incision. Right- sided stoma in place with bowel sweat in bag. Const: Vital Signs, click to edit/add: Vital Signs - 24 hr 12/13/21 15:00 12/13/21 19:00 12/13/21 23:00 Temperature 98.8 F 98.1 F 98.2 F Pulse Rate Pulse Rate [Pulse Oximeter] 68 77 65 Pulse Rate [Right Brachial] Respiratory Rate 16 16 16 Blood Pressure [Ri ght Arm] 135/69 151/70 H 125/59 L Pulse Oximetry 93 94 95 12/13/21 23:35 12/14/21 03:00 12/14/21 07:00 Temperature 97.8 F 98.8 F Pulse Rate 61 Pulse Rate [Pulse Oximeter] Pulse Rate [Right Brachial] 76 Respiratory Rate 16 20 Blood Pressure [Ri ght Arm] 124/61 141/78 H Pulse Oximetry 95 98 12/14/21 07:40 Temperature Pulse Rate 71 Pulse Rate [Pulse Oximeter] Pulse Rate [Right Brachial] Respiratory Rate Blood Pressure [Ri ght Arm] Pulse Oximetry Documenting provider has reviewed patient's vital signs: yes Progress Note: A&P Assessment and plan (1) Diverticulitis of colon with perforation: Status: Acute Assessment and Plan: Patient is postop day 2 exploratory laparotomy, sigmoidectomy with primary anastomosis and diverting loop ileostomy. He is doing very well postoperatively. Vital signs stable overnight. White blood cell count has normalized and he has remained afebrile. He does have some mild redness around his incision, will need to continue to watch closely for surgical site infection. Given the amount of intraoperative contamination will continue with IV ertapenem and plan to transition to oral antibiotics once he has had return of bowel function. Will also continue with just sips and ice chips for today, patient is denying any significant appetite. -IV fluids -IV and p.o. pain meds as needed -NPO, okay for sips and chips -encourage ambulation, SCDs and Lovenox for DVT prophylaxis -will continue with IV ertapenem, patient will need a total course of 14 days antibiotics
[2021-12-14] MEDS: ENOXAPARIN 30 MG/0.3ML INJ SUBCUT (13:34)
--- NOTE | 2021-12-14 14:36 | PC.NURSE ---
Sat down with patient this afternoon 1:1 and we went through changing his appliance. I explain the steps as i did his change. I explained to him that it is important to not just pull the appliance off fast as you need to protect the underlying skin. Showed him will demo stoma on how to measure the stoma of what is too big and what is too little. currently I measured his stoma to be 38 cm. It is beefy red a little bleeding noted at the incision site. He asked great questions and was very observant as he wants to learn to be able to manage his stoma himself.
--- NOTE | 2021-12-14 19:21 | PC.NURSE ---
Pt up independently in room. Showered, redressed incision which is closed by hari, skin is pink surrounding incision. Pt emptied ileostomy bag independently. Tolerating sips and chips, denies N/V. Friendly and conversational.
--- NOTE | 2021-12-14 20:13 | PC.NURSE ---
[id number]: Pt. up indep. in room. 10mg ativan for 3/10 pain as pt. wanted to try and sleep, successful. Emptying own appliance from ostomy bag. Putting out liquid brown stool. Denies nausea/vomiting/chills/chest pain or pressure. Continues w/sips and chips. RN noted while pt. up in hallway that right calf appeared larger than left. Pt. notes did not notice this, but area not noted to be tender, sore or warm/red. TEDS placed on pt. RN conferred w/Dr. Pablo, no new orders received. Pt. did note that he has not been taking HCTZ for water since hospitalized. This was also mentioned to Dr. Pablo, but no new orders. [employer] updated w/report.
--- NOTE | 2021-12-14 22:05 | PC.NURSE ---
Shift note 19-23: Pt up ad teena, rating abd pain 2-4/10 taking Oxycodone PRN Q4h. Abd drsg CDI, managing own ostomy cares, bag emptied for 250cc brownish/reddish liquid output.
[2021-12-15] MEDS: ERTAPENEM 1 GM in 0.9 % SODIUM CHLORIDE Mini-bag 100 ML IVPB (00:25)
[2021-12-15] MEDS: ENOXAPARIN 30 MG/0.3ML INJ SUBCUT ×2 (00:26→12:48)
[2021-12-15] MEDS: OXYCODONE 5 MG TABLET PO ×6 (00:30→20:51)
[2021-12-15] MEDS: LACTATED RINGERS 1000 ML 1,000 ML 125 ML IV ×3 (02:22→19:09)
[2021-12-15 03:00] VITALS: BP 126/62; PULSE 64; RESP 18; TEMP 36.6; O2SAT 93
--- NOTE | 2021-12-15 06:26 | PC.NURSE ---
23-07: Pt pleasant and cooperative. Ambulating indep. c/o pain with movement, see emar. 200mL greenish brown?output in ostomy bag, pt indep with emptying ostomy. Pt indep with CPAP, O2 sats 93%. Bowel sounds present. Dressing to abdomen?CDI. Trace edema to bilat LE, teds on.
[2021-12-15 06:50] LABS: Basophils Absolute Auto 0.03 K/uL (0.00-0.30); Basophils Percent Auto 0.4 % (0.0-3.0); Eosinophils Absolute Auto 0.09 K/uL (0.00-0.50); Eosinophils Percent Auto 1.3 % (0.0-7.0); Hematocrit 36.1 % (37.0-53.0); Hemoglobin* 11.4 gm/dL (13.5-17.5); Immature Granulocytes Abs Auto 0.03 K/uL (0.00-0.30); Mean Corpuscular HGB Conc 32 gm/dL (32-36); Mean Corpuscular Hemoglobin 28 pg (26-34); Mean Corpuscular Volume 87 fL (80-100); Monocytes Percent Auto 8.9 % (0.0-11.0); Neutrophils Absolute Auto 4.78 K/uL (1.7-7.0); Platelet Count* 174 K/uL (140-440); RDW Coefficient of Variation % 14.2 % (11.5-15.5); Red Blood Count 4.15 m/uL (4.30-5.90); White Blood Count* 6.84 K/uL (4.50-11.00)
[2021-12-15 06:57] LABS: Slide Review Reflex No
[2021-12-15 07:07] LABS: Chloride* 105 mmol/L (96-114); Sodium* 136 mmol/L (135-149)
[2021-12-15 07:08] LABS: Potassium* 3.6 mmol/L (3.6-5.1)
[2021-12-15 07:10] LABS: Creatinine* 1.3 mg/dL (0.5-1.5); Estimated Glomerular Filt Rate 65 ml/min
[2021-12-15 07:11] LABS: Blood Urea Nitrogen* 16 mg/dL (7-30); Calcium* 8.4 mg/dL (8.4-10.6); Carbon Dioxide* 29 mmol/L (20-32); Glucose* 108 mg/dL (60-115)
[2021-12-15 08:00] VITALS: BP 161/81; PULSE 65; RESP 18; TEMP 36.6; O2SAT 95
--- NOTE | 2021-12-15 08:11 | PM.GSPN ---
Subjective Subjective Date Seen: 12/15/21 Interval history: Patient is doing well this morning. He is feeling very hungry. He continues to pass gas through his stoma and liquidy stools. Abdomen is soft and his pain is well controlled. He has been ambulating independently. No acute concerns. Exam Narrative: Exam Narrative: General: Alert and oriented, no acute distress. Lying comfortably in bed. Abdomen: Obese abdomen, soft, appropriately tender over incision sites without guarding or rebound. Stoma with bag in place, gas and liquid stool within bag. Midline incision with hari in place, there is some surrounding redness that blanches and is warm to touch. No drainage from incision sites. Const: Vital Signs, click to edit/add: Vital Signs - 24 hr 12/14/21 11:00 12/14/21 15:57 12/14/21 19:50 Temperature 98.8 F 98.3 F 98.2 F Pulse Rate [Pulse Oximeter] 70 71 Pulse Rate [Right Brachial] 75 70 Respiratory Rate 20 18 18 Blood Pressure [Ri ght Arm] 150/71 H 135/68 132/70 Pulse Oximetry 98 94 97 12/14/21 23:00 12/15/21 03:00 Temperature 98.2 F 97.8 F Pulse Rate [Pulse Oximeter] 71 64 Pulse Rate [Right Brachial] 71 Respiratory Rate 18 18 Blood Pressure [Ri ght Arm] 127/49 L 126/62 Pulse Oximetry 93 93 Documenting provider has reviewed patient's vital signs: yes Progress Note: A&P Assessment and plan (1) Diverticulitis of colon with perforation: Status: Acute Assessment and Plan: Patient is postop day 3 exploratory laparotomy, sigmoidectomy and diverting loop ileostomy for perforated diverticulitis. Overall doing well with evidence of return of bowel function. Vital signs stable overnight and afebrile, labs with no evidence of leukocytosis. He does have some continued redness around his incision, will continue to watch closely for possible did developing surgical site infection. Will also continue with antibiotics, can transition to oral today. -full liquids, slowly advanced diet as tolerated -TKO IV fluids -IV and p.o. pain meds as needed -will transition from IV ertapenem to Augmentin -encourage ambulation, SCDs and Lovenox for DVT prophylaxis
[2021-12-15] MEDS: LEVOTHYROXINE 75 MCG TABLET PO (08:44)
[2021-12-15] MEDS: LEVOTHYROXINE 100 MCG TABLET PO (08:44)
--- NOTE | 2021-12-15 10:36 | PM.IMPN1 ---
Progress Note: A&P Assessment and plan (1) Diverticulitis of colon with perforation: Status: Acute Assessment and Plan: Patient doing well will continue follow with General surgery. Needs are currently being met. Will be reviewing his outpatient medications. Patient's primary care provider will plan see him back in the office. Subjective Time Seen by Provider: 10:36 Date Seen: 12/15/21 Interval history: Patient is up walking today. He has had some air past per rectum. He he is eating a soft diet. He has been afebrile. His morning laboratory studies look stable. He has no abdominal pain is making steady progress. No concerns have been noted. Exam Narrative: Exam Narrative: EXAM GENERAL: Patient appears comfortable and well. Patient overweight. EYES: No scleral icterus. LYMPH: No supraclavicular or cervical lymphadenopathy. SKIN: Visible skin seen during exam normal or with benign process only. EXT: No dependent lower extremity pedal edema. HEART: Regular rate and rhythm with no murmurs, rubs, or gallops. LUNGS: Clear to auscultation bilaterally with no crackles or wheezes. ABD: Soft, non tender, non distended. Hypoactive but present bowel sounds noted. PSYCH: Good eye contact, speech is not pressured. Const: Vital Signs, click to edit/add: Vital Signs - 24 hr 12/14/21 11:00 12/14/21 15:57 12/14/21 19:50 Temperature 98.8 F 98.3 F 98.2 F Pulse Rate [Pulse Oximeter] 70 71 Pulse Rate [Right Brachial] 75 70 Respiratory Rate 20 18 18 Blood Pressure [Ri ght Arm] 150/71 H 135/68 132/70 Pulse Oximetry 98 94 97 12/14/21 23:00 12/15/21 03:00 Temperature 98.2 F 97.8 F Pulse Rate [Pulse Oximeter] 71 64 Pulse Rate [Right Brachial] 71 Respiratory Rate 18 18 Blood Pressure [Ri ght Arm] 127/49 L 126/62 Pulse Oximetry 93 93 Labs Labs: Laboratory Results - last 24 hr 12/13/21 12/15/21 12/15/21 01:38 06:12 06:12 WBC 6.84 RBC 4.15 L Hgb 11.4 L Hct 36.1 L MCV 87 MCH 28 MCHC 32 RDW Coeff of Charmaine 14.2 Plt Count 174 Neut % (Auto) 70.0 Lymph % (Auto) 19.0 L [place] % (Auto) 8.9 Eos % (Auto) 1.3 Baso % (Auto) 0.4 Neut # (Auto) 4.78 Lymph # (Auto) 1.30 [place] # (Auto) 0.60 Eos # (Auto) 0.09 Baso # (Auto) 0.03 Abs Immat Gran (auto) 0.03 Sodium 136 Potassium 3.6 Chloride 105 Carbon Dioxide 29 BUN 16 Creatinine 1.3 Estimated Creat Clear 64.20 Estimated GFR 65 Glucose 108 Calcium 8.4 Surg PTH (Off-Site) See Scanned Report
--- NOTE | 2021-12-15 10:49 | NUTR.NU ---
Diet Education: Patient was provided diet education related to new ileostomy.? Education provided on following a low fiber diet for the next ~6 weeks or per MD recommendation.? Education included recommendations on following a low-fiber diet of less than 8 grams of fiber per day and included foods that are recommended and not recommended.? Verbal and written information as well as sample menus provided from [facility] on nutrition therapy for ileostomy and low-fiber diet.? Patient verbalized understanding and had no questions or concerns.? RDN's contact information was provided and patient was encouraged to contact RDN with questions.
--- NOTE | 2021-12-15 11:00 | PM.WSCN ---
Date of Consult Consult date: 12/15/21 Requesting Physician: General Surgery Primary Care Provider: Oliver Lilly MD Consult Narrative Reason for consult: Ostomy management and education Narrative: Shad Neri Jr is a 56 year old male admitted to hospital on 12/12/21 and taken to surgery and had exploratory laparotomy, sigmoidectomy, diverting loop ileostomy completed.? He did well postoperatively.? His ostomy site is dry and without signs of infection.? Draining stool appropriately. He has advanced his diet to full liquid. Plan to transition to low residue diet. Possible discharge home tomorrow.?Denies fever or chills. Independently Emptied bag while present in exam room, 250cc of brown liquid stool. Has seen dietary. Review of Systems Status of ROS: Reports: 6 or more systems reviewed and unremarkable except as noted in History and below [facility] Medical History (Updated 12/20/21 @ 15:20 by Marlene Damon MD) Abdominal pain Colonoscopy causing post-procedural bleeding CPAP (continuous positive airway pressure) dependence Diverticulosis Essential (primary) hypertension Horseshoe kidney Hypothyroidism associated with surgical procedure Leiomyosarcoma Obesity, morbid, BMI 40.0-49.9 Obstructive sleep apnea Papillary thyroid carcinoma Polycythemia Recurrent urinary tract infection Surgical History (Updated 12/19/21 @ 15:03 by Viral Grijalva) Status post total knee replacement Status post total knee replacement, left Status post total left knee replacement Status post total thyroidectomy Social History How hard is it for you to pay for the very basics like food, housing, medical care, and heating: not applicable Smoking Status: Former smoker Do you use any of these nicotine containing products: None Second hand tobacco smoke exposure: No How often do you have a drink containing alcohol: monthly or less How often do you have six or more drinks on one occasion: Never AUDIT-C Alcohol total score: 1 Non-prescribed substance use: denies use Are you now , , , , never or living with a partner: In a typical week, how many times do you talk on the telephone with family, friends, or neighbors: three or more times per week How often do you get together with friends or relatives?: three or more times per week Social isolation score (0-1 are the most socially isolated patients): 2 Feel stressed/tense/nervous/anxious/difficulty sleeping: not at all Meds Home Medications and Allergies Home Medications Medication Instructions Recorded Confirmed Type cholecalciferol (vitamin D3) 125 125 mcg PO QDAY 12/12/21 12/12/21 History mcg (5,000 unit) capsule hydrochlorothiazide 25 mg tablet 25 mg PO QAM 12/12/21 12/12/21 History levothyroxine 175 mcg capsule 175 mcg PO QDAY 12/12/21 12/12/21 History losartan 50 mg tablet 50 mg PO QDAY 12/12/21 12/12/21 History naproxen sodium 220 mg capsule 440 mg PO QDAY 12/12/21 12/12/21 History (Aleve) testosterone cypionate 200 mg/mL 100 mg IM Q14D 12/13/21 12/13/21 History intramuscular oil topiramate 100 mg tablet 100 mg PO HS 12/13/21 12/13/21 History Allergies Allergy/AdvReac Type Severity Reaction Status Date / Time No Known Drug Allergies Allergy Verified 12/20/21 14:50 Exam Const: Documenting provider has reviewed patient's vital signs: yes Common normals: no apparent distress and alert General appearance: cooperative and comfortable Nutritional appearance: obese Orientation/consciousness: Yes awake HENMT: Common normals: normocephalic, head/scalp atraumatic, external ears normal and external nose normal Head and scalp: normal to inspection, normocephalic and atraumatic Nose: external nose normal External ear: external ears normal Eye: Common normals: conjunctivae normal Conjunctiva: conjunctiva(e) normal Neck & C-Spine: Common normals: full ROM Resp: Common normals: normal respiratory effort Effort & inspection: able to speak in complete sentences GI: Inspection: abdominal distension (WNL for post-op), incision (surgical hari intact. midline incision.) Inspection of incision: drainage (scant clear ), ostomy present (RLQ loop ileostomy with 250cc of brown watery stool) and other (non-tender to palpation ) Neuro: Common normals: moves all extremities and gait normal Sensorium/orientation: awake and alert Speech: speech normal Gait (neuro): normal gait Psych: Common normals: mental status grossly normal, thought process normal, cooperative and speech normal Attitude: calm and engaged Activity/motor behavior: appropriate eye contact Speech: normal speech Thought process: normal thought process Thought content: normal thought content Attention/concentration: attention grossly intact Insight: insight good Judgement: judgment good Skin: Skin images (male): 1. midline surgical site-hari intact 2. Loop ileostomy Wounds: wounds noted Assessment and Plan Assessment and plan (1) Diverticulitis of colon with perforation: Status: Acute Plan patient to change bag prior to d/c to home. Patient provided ostomy appliance supplies and education materials. extensive education provided. Patient practiced changing appliance. He asked appropriate questions and verbalized understanding of information provided. Patient to see me in clinic in 1 week for f/u on ostomy. appt. in wound/ostomy clinic on 12/22/21 @2pm. More than 45min. spent in [id number] contact with patient.
--- NOTE | 2021-12-15 16:09 | PC.SOCIAL ---
Social work: Met with pt and regarding MD order for home care. Pt is requesting [facility] as they are already providing services to his . Called [facility] and spoke with intake who stated they are not able to provide colostomy care. Called [facility] and arranged for ordered home care to start on Saturday12/19/21. Pt and are pleased with this plan. Face to face sent to [facility] for follow up.
[2021-12-15 17:00] VITALS: BP 161/89; PULSE 68; RESP 18; TEMP 37.2; O2SAT 96
[2021-12-15] MEDS: AMOXICILLIN/CLAVULANATE 875 mg/125 mg TABLET PO (18:30)
[2021-12-16] MEDS: ENOXAPARIN 30 MG/0.3ML INJ SUBCUT (00:52)
[2021-12-16] MEDS: OXYCODONE 5 MG TABLET PO ×3 (00:52→09:28)
[2021-12-16 01:00] VITALS: BP 130/68; PULSE 58; RESP 16; TEMP 36; O2SAT 94
[2021-12-16] MEDS: LACTATED RINGERS 1000 ML 1,000 ML 125 ML IV ×2 (02:30)
[2021-12-16 04:50] VITALS: BP 139/73; PULSE 60; RESP 14; TEMP 36.6; O2SAT 95
[2021-12-16 05:00] VITALS: PULSE 60; RESP 14
[2021-12-16] MEDS: LEVOTHYROXINE 100 MCG TABLET PO (05:03)
[2021-12-16] MEDS: LEVOTHYROXINE 75 MCG TABLET PO (05:03)
--- NOTE | 2021-12-16 05:47 | PC.NURSE ---
Shift Note -: Pt pleasant and cooperative, VSS, afebrile, pain well controlled on 10mg oxycodone q4h. Pt up to BR independently, adequate urinary output and managing ostomy care independently. PIV patent and asymptomatic. See eMAR for medication administration.
[2021-12-16 09:00] VITALS: BP 164/98; PULSE 64; RESP 18; TEMP 37.5; O2SAT 94
[2021-12-16] MEDS: AMOXICILLIN/CLAVULANATE 875 mg/125 mg TABLET PO (10:44)
--- NOTE | 2021-12-16 11:13 | P.DS_ITS ---
DS: Providers Provider Date Seen: 12/16/21 Date of admission: 12/12/21 18:57 Primary care physician: Oliver Lilly MD Admitting Clinician: Thom Pablo MD Consults: 12/12/21 22:26 Consult to Respiratory Therapy [CONS] Routine Comment: Reason(s) for RT Consult:: Consult Comment: Postoperative pulmonary hygiene supportive efforts Attending Physician on discharge: Thom Pablo MD DS: Diagnosis Discharge Diagnosis (1) Diverticulitis of colon with perforation: Status: Acute DS: Summary Hospital Course Hospital Course: HOSPITALIST DISCHARGE SUMMARY ATTENDING PHYSICIAN: Kirsten Freeman MD FINAL DIAGNOSIS: Acute perforated diverticulitis Status post exploratory laparotomy, sigmoidectomy, diverting loop ileostomy Urinary tract infection History of horseshoe kidney History of leiomyosarcoma HOSPITAL FOLLOWUP ISSUES: Wound care - Diane from the wound care clinic has completed teaching, given supplies, arranged follow-up General surgery- Dr Damon will coordinate all follow-up Other chronic medical conditions- Dr. Lilly is his primary and will continue to follow him as needed REFERRALS WHILE ADMITTED: Wound care REFERRALS AFTER DISCHARGE: Continue with Wound care Continue with general surgery BRIEF HOSPITAL COURSE: 56-year-old man was admitted for perforated diverticulitis. He had free air in his abdomen. He was taken to surgery and had exploratory laparotomy, sigmoidectomy, diverting loop ileostomy completed. He did well postoperatively. His ostomy site is dry and without signs of infection. Draining stool appropriately. Patient has converted to oral antibiotics, Augmentin. He has advanced his diet. He is agreeable with discharge. He has a history of chronic UTIs and his urine culture is positive for Gram-positive cocci. Further culture and sensitivities are still pending. There should be adequate coverage with his p.o. Augmentin. His other chronic medical conditions remained stable while hospitalized. VITAL SIGN, MEDICATION, LAB/MICRO, IMAGING SUMMARY (full details available in account tabs or by records request) Leukocytosis resolved, high of 19.5 and on discharge 6.8 Hemoglobin down to 11.4 from preoperatively 14.2. No active bleeding noted. Platelet count is normal. Electrolytes normal. Both sodium and potassium have normalized. His creatinine has improved. His baseline appears to be between 1.1 and 1.3. He is 1.3 this morning. His UA showed positive nitrites, 2+ leukocyte esterase and 5-10 white blood cells. Urine culture shows Gram-positive cocci however final sensitivities are still pending. Pathology results from surgical specimens has been reviewed. Negative for dysplasia and malignancy. DISCHARGE MEDICATIONS: See Reconciled list REVIEW OF SYSTEMS No new chest pain or dyspnea Pain controlled No voiding difficulties Tolerating diet challenge PHYSICAL EXAM: CONSTITUTIONAL: VITAL SIGNS: Afebrile in the last 48 hours Blood pressure is 130/68, 139/73 Pulse 50s and 60s Respiratory rate 16, unlabored. Room air saturations are mid 90s. Weight 140 kilos. This is stable. HEENT: Normocephalic, atraumatic. PERRL, EOMI, conjunctivae pink, no scleral icterus. Ears and nose externally normal. Pharynx normal. NECK: No JVD. No carotid bruit, no thyromegaly, no adenopathy. CHEST: Clear to auscultation bilaterally. HEART: S1 and S2 normal. Edema ABDOMEN: Obese, surgical dressing in place. Dry. Noted mild erythema superior to ostomy site has improved. Nontender. Liquid stool in his bag. MUSCULOSKELETAL: No gross joint deformity or swelling. NEURO: Cranial nerves intact. Grossly intact. No asymmetric findings. SKIN: No rashes, petechiae, concerning changes PSYCHIATRIC: Mood euthymic. DISPOSITION: Home Time spent on discharge 37 minutes. Time Spent with Patient Time attestation: Total time spent providing and/or coordinating discharge services: Exam Narrative: Exam Narrative: General: Alert and oriented, no acute distress. Walking independently and comfortably. Abdomen: Obese abdomen. Midline incision with hari in place, redness has resolved and incision is clean/dry/intact with no concern for infection. Right- sided ostomy in place with liquid bilious stool output. Abdomen is soft, nontender. Const: Vital Signs, click to edit/add: Vital Signs - 24 hr 12/15/21 17:00 12/16/21 01:00 12/16/21 04:50 Temperature 99 F 96.8 F L 97.8 F Pulse Rate [Pulse Oximeter] 58 L 60 Pulse Rate [Right Brachial] 68 58 L 60 Respiratory Rate 18 16 14 Blood Pressure [Ri ght Arm] 161/89 H 130/68 139/73 Pulse Oximetry 96 94 95 12/16/21 05:00 12/16/21 09:00 Temperature 99.5 F Pulse Rate [Pulse Oximeter] 60 Pulse Rate [Right Brachial] 60 64 Respiratory Rate 14 18 Blood Pressure [Ri ght Arm] 164/98 H Pulse Oximetry 94 Documenting provider has reviewed patient's vital signs: yes Discharge Plan Discharge Disposition: Home, Self-Care Date of Admission: 12/12/21 18:57 Attending Provider on Discharge: Marlene Damon Consulting Providers: Oliver Lilly Primary Care Provider: Oliver Lilly Condition: Stable Anticipated Discharge Date/Time: 12/16/21 12:27 Discharge Medications: New Lactobacillus acidophilus 0.5 mg (100 million cell) Tablet 1 tab PO TIDWM Qty: 90 0RF amoxicillin-pot clavulanate [Augmentin] 500-125 mg tablet 1 tab PO Q12H 10 Days Qty: 20 0RF oxycodone 5 mg tablet 5 mg PO Q6H PRN (Reason: pain) Qty: 20 0RF loperamide 2 mg capsule 2 mg PO QID PRN (Reason: loose stool) Qty: 90 0RF Rx Instructions: Use as needed for ileostomy output >1200cc per day. psyllium husk 6 gram/6 gram powder 1 tsp PO DAILY Qty: 450 0RF Rx Instructions: mix into at least 4 oz water or juice before administering. Use to bulk up stool. Ok to increase to twice daily if needed. Continued losartan 50 mg tablet 50 mg PO QDAY 0RF hydrochlorothiazide 25 mg tablet 25 mg PO QAM 0RF cholecalciferol (vitamin D3) 125 mcg (5,000 unit) capsule 125 mcg PO QDAY 0RF levothyroxine 175 mcg capsule 175 mcg PO QDAY 0RF testosterone cypionate 200 mg/mL oil 100 mg IM Q14D 0RF Label Comments: INJECT 1/2 ML EVERY 2 WEEKS topiramate 100 mg tablet 100 mg PO HS 0RF Label Comments: TAKE 1 TABLET BY MOUTH EVERYDAY AT BEDTIME Held naproxen sodium [Aleve] 220 mg capsule 440 mg PO QDAY 0RF Hold Instructions: Hold until postsurgical follow-up appointment complete Discharge Orders: Discharge Order (Routine); Ordered 12/16/21 Ordered By: Marlene Damon Patient Education: Perforated Bowel (DC) Activity Level: Activity as Tolerated Activity Detail: Activity as tolerated. Avoid strenuous activity. No lifting greater than 20 lb for 6 weeks. Discharge Diet: Regular Follow Up Appointments: Marlene Damon MD [Staff Physician] - (Patient to be seen on 12/20/2021 in surgery clinic.) Oliver Lilly MD [Primary Care Provider] - Donna Prasad CNP [Nurse Practitioner] - 12/22/21 2:00 pm Forms: [email or web address] Info Instructions
[2021-12-16] MEDS: LACTOBACILLUS ACIDOPHILUS 1 TABLET 1 TAB PO (12:26)
--- NOTE | 2021-12-16 17:09 | PC.NURSE ---
shift note: vss stable. pt up indpet in room and kessler. Ls clr. pt has active BS x4. Pt emptying ostomy bag indept. Ostomy stoma pink & moist. pt has some mushiness to stools this a.m. Pt denies nausea and is tolerating reg low residue diet. Pt place new ostomy appliance prior to dc with supervision of staff and performed skill well. Site appeared intact with no leaks. Drsg to mid line abd performed with vaseline gauze and abd pads to cover. hari intact w/o redness. Reviewed dc instructions and meds. Copies sent with pt at [place]. Belongings reviewed and sent with pt at la. Supplies for ostomy and wound care to midline incision site sent with pt at [facility]. IV dc'd intact from [facility].
--- NOTE | 2021-12-21 09:25 | P.DS_ITS ---
DS: Providers Provider Date Seen: 12/16/21 Date of admission: 12/12/21 18:57 Primary care physician: Oliver Lilly MD Admitting Clinician: Thom Pablo MD Consults: 12/12/21 22:26 Consult to Respiratory Therapy [CONS] Routine Comment: Reason(s) for RT Consult:: Consult Comment: Postoperative pulmonary hygiene supportive efforts Attending Physician on discharge: Linda Freeman Date of Discharge: 12/21/21 DS: Summary Hospital Course Hospital Course: HOSPITALIST DISCHARGE SUMMARY ATTENDING PHYSICIAN: Kirsten Freeman MD FINAL DIAGNOSIS: Acute perforated diverticulitis Status post exploratory laparotomy, sigmoidectomy, diverting loop ileostomy Urinary tract infection History of horseshoe kidney History of leiomyosarcoma HOSPITAL FOLLOWUP ISSUES: Wound care - Diane from the wound care clinic has completed teaching, given supplies, arranged follow-up General surgery- Dr Damon will coordinate all follow-up Other chronic medical conditions- Dr. Lilly is his primary and will continue to follow him as needed REFERRALS WHILE ADMITTED: Wound care REFERRALS AFTER DISCHARGE: Continue with Wound care Continue with general surgery BRIEF HOSPITAL COURSE: 56-year-old man was admitted for perforated diverticulitis. He had free air in his abdomen. He was taken to surgery and had exploratory laparotomy, sigmoidectomy, diverting loop ileostomy completed. He did well postoperatively. His ostomy site is dry and without signs of infection. Draining stool appropriately. Patient has converted to oral antibiotics, Augmentin. He has advanced his diet. He is agreeable with discharge. He has a history of chronic UTIs and his urine culture is positive for Gram-positive cocci. Further culture and sensitivities are still pending. There should be adequate coverage with his p.o. Augmentin. His other chronic medical conditions remained stable while hospitalized. VITAL SIGN, MEDICATION, LAB/MICRO, IMAGING SUMMARY (full details available in account tabs or by records request) Leukocytosis resolved, high of 19.5 and on discharge 6.8 Hemoglobin down to 11.4 from preoperatively 14.2. No active bleeding noted. Platelet count is normal. Electrolytes normal. Both sodium and potassium have normalized. His creatinine has improved. His baseline appears to be between 1.1 and 1.3. He is 1.3 this morning. His UA showed positive nitrites, 2+ leukocyte esterase and 5-10 white blood cells. Urine culture shows Gram-positive cocci however final sensitivities are still pending. Pathology results from surgical specimens has been reviewed. Negative for dysplasia and malignancy. DISCHARGE MEDICATIONS: See Reconciled list REVIEW OF SYSTEMS No new chest pain or dyspnea Pain controlled No voiding difficulties Tolerating diet challenge PHYSICAL EXAM: CONSTITUTIONAL: VITAL SIGNS: Afebrile in the last 48 hours Blood pressure is 130/68, 139/73 Pulse 50s and 60s Respiratory rate 16, unlabored. Room air saturations are mid 90s. Weight 140 kilos. This is stable. HEENT: Normocephalic, atraumatic. PERRL, EOMI, conjunctivae pink, no scleral icterus. Ears and nose externally normal. Pharynx normal. NECK: No JVD. No carotid bruit, no thyromegaly, no adenopathy. CHEST: Clear to auscultation bilaterally. HEART: S1 and S2 normal. Edema ABDOMEN: Obese, surgical dressing in place. Dry. Noted mild erythema superior to ostomy site has improved. Nontender. Liquid stool in his bag. MUSCULOSKELETAL: No gross joint deformity or swelling. NEURO: Cranial nerves intact. Grossly intact. No asymmetric findings. SKIN: No rashes, petechiae, concerning changes PSYCHIATRIC: Mood euthymic. DISPOSITION: Home Time spent on discharge 37 minutes. Status at Discharge Functional status at discharge: independent ambulation Time Spent with Patient Time attestation: Total time spent providing and/or coordinating discharge services: Time spent: Greater than 30 minutes Exam Const: Vital Signs, click to edit/add: Vital Signs - 24 hr 12/15/21 17:00 12/16/21 01:00 12/16/21 04:50 Temperature 99 F 96.8 F L 97.8 F Pulse Rate [Pulse Oximeter] 58 L 60 Pulse Rate [Right Brachial] 68 58 L 60 Respiratory Rate 18 16 14 Blood Pressure [Ri ght Arm] 161/89 H 130/68 139/73 Pulse Oximetry 96 94 95 12/16/21 05:00 Temperature Pulse Rate [Pulse Oximeter] 60 Pulse Rate [Right Brachial] 60 Respiratory Rate 14 Blood Pressure [Ri ght Arm] Pulse Oximetry Discharge Plan Discharge Disposition: Home, Self-Care Date of Admission: 12/12/21 18:57 Attending Provider on Discharge: Marlene Damon Consulting Providers: Oliver Lilly Primary Care Provider: Oliver Lilly Condition: Stable Anticipated Discharge Date/Time: 12/16/21 12:27 Discharge Medications: New Lactobacillus acidophilus 0.5 mg (100 million cell) Tablet 1 tab PO TIDWM Qty: 90 0RF amoxicillin-pot clavulanate [Augmentin] 500-125 mg tablet 1 tab PO Q12H 10 Days Qty: 20 0RF loperamide 2 mg capsule 2 mg PO QID PRN (Reason: loose stool) Qty: 90 0RF Rx Instructions: Use as needed for ileostomy output >1200cc per day. psyllium husk 6 gram/6 gram powder 1 tsp PO DAILY Qty: 450 0RF Rx Instructions: mix into at least 4 oz water or juice before administering. Use to bulk up stool. Ok to increase to twice daily if needed. Continued losartan 50 mg tablet 50 mg PO QDAY hydrochlorothiazide 25 mg tablet 25 mg PO QAM cholecalciferol (vitamin D3) 125 mcg (5,000 unit) capsule 125 mcg PO QDAY levothyroxine 175 mcg capsule 175 mcg PO QDAY testosterone cypionate 200 mg/mL oil 100 mg IM Q14D Label Comments: INJECT 1/2 ML EVERY 2 WEEKS topiramate 100 mg tablet 100 mg PO HS Label Comments: TAKE 1 TABLET BY MOUTH EVERYDAY AT BEDTIME Held naproxen sodium [Aleve] 220 mg capsule 440 mg PO QDAY Hold Instructions: Hold until postsurgical follow-up appointment complete Discharge Orders: Discharge Order (Routine); Ordered 12/16/21 Ordered By: Marlene Damon Activity Level: Activity as Tolerated Activity Detail: Activity as tolerated. Avoid strenuous activity. No lifting greater than 20 lb for 6 weeks. Discharge Diet: Regular Follow Up Appointments: Marlene Damon MD [Staff Physician] - (Patient to be seen on 12/20/2021 in surgery clinic.) Oliver Lilly MD [Primary Care Provider] - Donna Prasad CNP [Nurse Practitioner] - 12/22/21 2:00 pm Forms: [employer] Info Instructions
== END 2021-12-16 13:30 | disposition home or self-care (01) | DRG 330 ==
LOC: ED 18:24 → MEDSURG 18:58
PROVIDERS: Surgery; Admitting Provider Internal Medicine; Emergency Provider Family Medicine; PCP Internal Medicine; Visit Provider Internal Medicine
PROC: 0DTN0ZZ Resection of Sigmoid Colon, Open Approach (ICD-10-PCS; principal; 2021-12-12 21:00)
DX: K57.20 Diverticulitis of large intestine with perforation and abscess without bleeding (principal); N39.0 Urinary tract infection, site not specified; Z68.42 Body mass index [BMI] 45.0-49.9, adult; Q63.1 Lobulated, fused and horseshoe kidney; E66.01 Morbid (severe) obesity due to excess calories; G47.33 Obstructive sleep apnea (adult) (pediatric); I10 Essential (primary) hypertension; D75.1 Secondary polycythemia; E89.0 Postprocedural hypothyroidism; Z85.850 Personal history of malignant neoplasm of thyroid; Z85.47 Personal history of malignant neoplasm of testis
CPT/HCPCS: 00790; 36415; 64488; 74176; 76942; 80048; 80053; 80076; 83605; 83690; 85025; 86140; 87077; 87186; 87502; 87635; 88307; 94761; 99140; 99284; 99285; A9270; C9290; J0131; J0330; J1100; J1170; J1335; J1650; J2250; J2405; J2704; J3010; J3490; J7120

== ENCOUNTER 2021-12-18 12:42 | Outpatient (CLI) | payer OTHER, SELFPAY | END 2021-12-18 12:43 | disposition home or self-care (01) | LOC: WOUND 12:42 | PROVIDERS: PCP Internal Medicine; Visit Provider Nurse Practitioner Family | DX: Z43.2 Encounter for attention to ileostomy (principal); T81.31XA Disruption of external operation (surgical) wound, not elsewhere classified, initial encounter | CPT/HCPCS: 97602; 99213 ==

== ENCOUNTER 2021-12-22 07:52 | Outpatient (CLI) | payer OTHER, SELFPAY | END 2021-12-22 07:53 | disposition home or self-care (01) | LOC: WOUND 07:52 | PROVIDERS: PCP Internal Medicine; Visit Provider Nurse Practitioner Family | DX: Z43.2 Encounter for attention to ileostomy (principal) | CPT/HCPCS: 99213 ==

== ENCOUNTER 2022-01-05 13:45 | Outpatient (CLI) | payer OTHER, SELFPAY | END 2022-01-05 13:46 | disposition home or self-care (01) | LOC: WOUND 13:45 | PROVIDERS: PCP Internal Medicine; Visit Provider Nurse Practitioner Family | DX: S31.109A Unspecified open wound of abdominal wall, unspecified quadrant without penetration into peritoneal cavity, initial encounter (principal); Z43.2 Encounter for attention to ileostomy | CPT/HCPCS: 99213 ==

== ENCOUNTER 2022-01-18 07:52 | Outpatient (CLI) | payer OTHER, SELFPAY | END 2022-01-18 07:53 | disposition home or self-care (01) | LOC: WOUND 07:52 | PROVIDERS: PCP Internal Medicine; Visit Provider Nurse Practitioner Family | DX: Z43.2 Encounter for attention to ileostomy (principal) | CPT/HCPCS: 99213 ==

== ENCOUNTER 2022-02-02 12:55 | Outpatient (CLI) | payer OTHER, SELFPAY | END 2022-02-02 12:56 | disposition home or self-care (01) | LOC: WOUND 12:55 | PROVIDERS: PCP Internal Medicine; Visit Provider Nurse Practitioner Family | DX: Z43.2 Encounter for attention to ileostomy (principal) | CPT/HCPCS: 99212 ==

== ENCOUNTER 2022-03-14 10:06 | Outpatient (CLI) | payer OTHER, SELFPAY ==
--- NOTE | 2022-03-14 10:15 | CRLHL7_ITS ---
For Patients: As a result of the Century Cures Act, medical imaging exams and procedure reports are released immediately into your electronic medical record. You may view this report before your referring provider. If you have questions, please contact your health care provider. Indication: Evaluate Anastomosis Technique: Single contrast water soluble barium enema performed. Fluoroscopic time 57 seconds. Comparison: 12/12/21 CT IMPRESSION: Postoperative changes of partial colectomy with primary anastomosis in the left lower quadrant. No stricture or mass. No leakage/extravasation. No obstruction to the flow of barium. Extensive colonic diverticulosis elsewhere. Right lower quadrant ileostomy. Dictated by Gomez Byrnes MD @ 03/14/2022 12:00:25 PM (Electronically Signed)
== END 2022-03-14 10:07 | disposition home or self-care (01) ==
LOC: RAD 10:07
PROVIDERS: PCP Internal Medicine; Visit Provider Surgery
DX: Z09 Encounter for follow-up examination after completed treatment for conditions other than malignant neoplasm (principal)
CPT/HCPCS: 74270

== ENCOUNTER 2022-03-28 16:13 | Outpatient (CLI) | payer OTHER, SELFPAY ==
[2022-03-28 18:00] LABS: Chloride* 97 mmol/L (96-114); Potassium* 3.8 mmol/L (3.6-5.1); Sodium* 136 mmol/L (135-149)
[2022-03-28 18:03] LABS: Carbon Dioxide* 26 mmol/L (20-32); Creatinine* 1.3 mg/dL (0.5-1.5); Estimated Glomerular Filt Rate 64 ml/min
[2022-03-28 18:04] LABS: Blood Urea Nitrogen* 15 mg/dL (7-30); Calcium* 9.4 mg/dL (8.4-10.6); Glucose* 107 mg/dL (60-115)
== END 2022-03-28 16:14 | disposition home or self-care (01) ==
LOC: NFLDREF 16:14
PROVIDERS: PCP Internal Medicine; Visit Provider Internal Medicine
DX: Z01.818 Encounter for other preprocedural examination (principal)
CPT/HCPCS: 80048

== ENCOUNTER 2022-04-02 07:21 | Outpatient (CLI) | payer OTHER, SELFPAY ==
--- NOTE | 2022-04-02 10:17 | W.ANESCHARGE ---
Anesthesia Charges Start Date/Time Anesthesia Start Date: 04/02/22 Anesthesia Start Time: 09:23 Stop Date/Time Anesthesia Stop Date: 04/02/22 Anesthesia Stop Time: 10:12 Summary Emergency: No
== END 2022-04-02 07:22 | disposition home or self-care (01) ==
LOC: OP CLINIC 07:21
PROVIDERS: PCP Internal Medicine; Visit Provider Surgery
DX: Z09 Encounter for follow-up examination after completed treatment for conditions other than malignant neoplasm (principal); K63.3 Ulcer of intestine; K62.1 Rectal polyp; Z98.0 Intestinal bypass and anastomosis status
CPT/HCPCS: 00811; 45380; 45385; 88305; J2405; J2704

== ENCOUNTER 2022-04-03 08:56 | Outpatient (CLI) | payer OTHER, SELFPAY ==
--- NOTE | 2022-04-03 09:15 | CRLHL7_ITS ---
For Patients: As a result of the Century Cures Act, medical imaging exams and procedure reports are released immediately into your electronic medical record. You may view this report before your referring provider. If you have questions, please contact your health care provider. INDICATION: Follow up of a left kidney lesion. A recent CT the abdomen and pelvis December 12, 2021 demonstrated a 1.3 cm hyperdense lesion in the upper pole of the left kidney. 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 Follow-up. History of thyroid, skin, and testicular cancer. TECHNIQUE: Bilateral renal and urinary bladder ultrasound. COMPARISON: Correlation is made with a noncontrast abdominopelvic CT December 12, 2021. Correlation is made with a contrast-enhanced CT of the chest abdomen and pelvis June 16, 2021. FINDINGS: No renal lesion identified by ultrasound. The previously suggested hyperdensity in the upper pole the left kidney on CT December 12, 2021 is not specifically visualized by ultrasound but the left kidney is suboptimally visualized due in part to the congenital anomalies and/or body habitus. The left kidney measures 9.2 x 4.5 x 4.2 cm. The left renal cortex measures 1.3 cm. The right kidney measures 12.1 x 4.6 x 5.6 cm. The right renal cortex measures 1.4 cm. The urinary bladder is incompletely distended. It is grossly unremarkable. IMPRESSION: 1. Suboptimal visualization of the left kidney. No hydronephrosis, stone, or mass identified by ultrasound. 2. Further imaging evaluation of the left renal lesion may include a short follow-up CT given the suboptimal visualization of the left kidney today. Dictated by Chinedu Gonzalez MD @ 04/03/2022 10:10:16 AM (Electronically Signed)
== END 2022-04-03 08:57 | disposition home or self-care (01) ==
PROVIDERS: PCP Internal Medicine; Visit Provider Surgery
DX: N28.1 Cyst of kidney, acquired (principal); Q63.1 Lobulated, fused and horseshoe kidney
CPT/HCPCS: 76775

== ENCOUNTER 2022-04-12 10:23 | Inpatient (IN) | payer OTHER, SELFPAY ==
[2022-04-12] VITALS (31 sets, daily range): BP systolic 110–144; BP diastolic 51–82; PULSE 63–80; RESP 12–18; TEMP 36.1–36.8; O2SAT 93–100; BMI 42.6
[2022-04-12] MEDS: LACTATED RINGERS 1000 ML 1,000 ML 100 ML IV ×2 (10:30→12:00)
[2022-04-12] MEDS: SODIUM CHLORIDE 0.9 % (FLUSH) 10 ML SYRINGE IVF (10:42)
[2022-04-12] MEDS: SCOPOLAMINE 1 MG/3 DAY PATCH 1 PATCH TRANSDERMA (10:57)
[2022-04-12] MEDS: PIPERACILLIN/TAZOBACTAM 3.375 GM INJ IVPB (11:20)
--- NOTE | 2022-04-12 12:39 | W.PM.NB ---
Nerve Block Nerve Block Time Seen by Provider: 11:12 Date Seen: 04/12/22 Type of block requested by surgeon for post-operative analgesia: TAP Side: bilateral Time out performed: Yes Verification of patient name: Yes Verification of date of : Yes Site marking: site marked Name of person performing procedure: Jose A Continuous monitoring Was continuous monitoring of O2 sat, B/P, insurance underwriter sales, recorded every 15 minutes?: Yes Procedure Checklist: sterile prep, needles and gloves Ultrasound guided. Images saved: Yes Medications given in 5ml increments after negative aspiration: Marcaine %: 0.25 mL: 30 Needle gauge: 20 and Exparel mL: 10 Patient tolerated procedure well: Yes Additional comments: Needle noted adjacent to nerve Block Charges Block Charge (with Pro Fee): TAP Bilateral Use of Ultrasound Machine for Block: Yes- US Guidance/pain block
--- NOTE | 2022-04-12 13:56 | PM.GSPRC ---
Operative Note Date of procedure: 04/12/22 Type of Procedure: Reversal of loop ileostomy Procedure Description: After discussing the risks and benefits of the procedure, the patient signed informed consent.? The operative site was marked and the patient was brought to the operating room and placed on the operating table in supine position.? Care was taken to pad the patient's pressure points.?? The patient was then intubated by anesthesia.?? The operative site was then prepped and draped in the usual sterile fashion.? A time-out was then performed. The mucocutaneous border was taken down around the right-sided loop ileostomy with cautery. Dissection was carried down through subcutaneous tissue. Care was taken during dissection not to injure the adjacent small bowel. I continued my dissection through the subcutaneous tissue down to the fascial opening. This dissection was made difficult secondary to adhesions present between the small bowel and the fascia. Sharp and blunt dissection was continued. The abdomen was then entered and the tissue surrounding the loop ileostomy carefully taken down from the fascia circumferentially. After the small bowel was completely freed it was carefully brought up onto the field. There were some adhesions of the omentum that were taken down with cautery. The small bowel was healthy in appearance but had thick mesenteric fat what appeared to be some creeping fat along the small bowel wall. A proximal and distal point on the small bowel was identified for transection in order to create the new anastomosis. A mesenteric defect was created on each side and a SYLVESTER 80 mm bowel load used to transect proximal and distal to the previous ostomy site. The staple lines were visualized and appeared intact with good flow. The mesentery was transected and ligated sequentially with clamps and 2-0 Vicryl ties. The specimen was then removed from the field and placed on the back table. A single 3-0 silk stay suture was placed on the anti mesenteric border of the proximal and distal limbs. A enterotomy was created on each limb proximally 1 cm from the previous staple line. Each arm of the staple was then gently placed within the distal and proximal limbs. The small bowel was lined up along the anti mesenteric border and a staple load was fired to create a [id number], functional end-to-end anastomosis. As the stapler was removed the internal staple line was examined for hemostasis, which was excellent. The common enterotomy was then closed with interrupted 3 0 silk Lembert stitches. The mesenteric defect was closed with 3-0 Vicryl. Two 3-0 silk crotch stitches were placed. The anastomosis was then palpated, the common channel was widely patent and there was no evidence of any leak at the common enterotomy. Due to the bulky mesentery and creeping fat that was present on the small bowel the fascial incision was extended medially. The skin incision also was extended medially. This allowed the anastomosis to be gently placed within the abdomen. A piece of omentum was then placed over the newly created anastomosis. The peritoneum was closed with 3-0 Vicryl. The anterior fascia was closed with 2 running 1. PDS suture. The cavity was irrigated with a mix of normal saline and Betadine. Local anesthetic was placed within the fascia. The subcutaneous tissue was loosely closed over with interrupted 3 0 Vicryl. The medial incision that was created was closed with running 4-0 Monocryl suture. The previous ostomy site was then partially closed with a pursestring suture of 2-0 Vicryl. The incision was then packed with wet to dry dressings. ? The patient was then woken and transported to the recovery area in stable condition. ? The patient tolerated the procedure well. Findings: Loop ileostomy, taken down with new small bowel [id number] functional end-to-end anastomosis created. Anesthesia: [facility] Surgeon: Marlene Damon MD Estimated blood loss (mL): 50 Condition: stable Disposition: PACU
--- NOTE | 2022-04-12 14:02 | W.ANESCHARGE ---
Anesthesia Charges Start Date/Time Anesthesia Start Date: 04/12/22 Anesthesia Start Time: 11:01 Stop Date/Time Anesthesia Stop Date: 04/12/22 Anesthesia Stop Time: 14:00 Summary Emergency: No
--- NOTE | 2022-04-12 14:50 | W.ANESCHARGE ---
Anesthesia Charges Start Date/Time Anesthesia Start Date: 04/12/22 Anesthesia Start Time: 11:01 Stop Date/Time Anesthesia Stop Date: 04/12/22 Anesthesia Stop Time: 14:00 Summary Emergency: No
[2022-04-12] MEDS: HYDROmorphone 0.5 mg/0.5 ml inj IVP ×2 (14:53→16:57)
[2022-04-12] MEDS: LACTATED RINGERS 1000 ML 1,000 ML 125 ML IV (16:55)
[2022-04-12] MEDS: KETOROLAC 15 MG/ML inj IVP (19:42)
[2022-04-13] MEDS: LACTATED RINGERS 1000 ML 1,000 ML 125 ML IV ×2 (00:53→09:24)
[2022-04-13 03:00] VITALS: BP 128/62; PULSE 74; RESP 16; TEMP 37.1; O2SAT 92
--- NOTE | 2022-04-13 05:39 | PC.NURSE ---
Addendum entered by Brie Mark RN 04/13/22 06:50: Pt walked halls this a.m. tolerated activity well, no episodes of lightheaded or dizziness. Original Note: [id number] Pt slept well during shift, rating pain 4/10 initially, prn toradol administered and pain 0-1/10 remainder of night. Walked halls x1, did have episode of not feeling normal, pt sat in chair in hallway, BP checked 143/78, denies lightheaded or dizziness. Bowel sounds hypoactive/absent, pt denies passing gas. sips and chips, denies N/V. At 0300 dressing noted to have scant light pink drainage present, not prominent enough to outline, this was not present at beginning of shift, dressing not saturated.
[2022-04-13 07:00] VITALS: BP 121/59; PULSE 56; PULSE 58; RESP 16; TEMP 36.7; O2SAT 100
[2022-04-13] MEDS: KETOROLAC 15 MG/ML inj IVP (07:53)
[2022-04-13] MEDS: LEVOTHYROXINE 75 MCG TABLET PO (08:28)
[2022-04-13] MEDS: LEVOTHYROXINE 100 MCG TABLET PO (08:28)
[2022-04-13 08:40] LABS: Basophils Absolute Auto 0.02 K/uL (0.00-0.30); Basophils Percent Auto 0.2 % (0.0-3.0); Eosinophils Absolute Auto 0.02 K/uL (0.00-0.50); Eosinophils Percent Auto 0.2 % (0.0-7.0); Hematocrit 40.1 % (37.0-53.0); Hemoglobin* 12.8 gm/dL (13.5-17.5); Immature Granulocytes Abs Auto 0.02 K/uL (0.00-0.30); Immature Granulocytes Pct Auto 0.2 %; Lymphocytes Percent Auto 16.4 % (20-44); Mean Corpuscular HGB Conc 32 gm/dL (32-36); Mean Corpuscular Hemoglobin 28 pg (26-34); Mean Corpuscular Volume 87 fL (80-100); Monocytes Percent Auto 8.5 % (0.0-11.0); Neutrophils Percent Auto 74.5 % (42.0-72.0); Platelet Count* 205 K/uL (140-440); RDW Coefficient of Variation % 15.6 % (11.5-15.5); Red Blood Count 4.61 m/uL (4.30-5.90)
[2022-04-13 08:48] LABS: Slide Review Reflex No
[2022-04-13 08:50] LABS: Chloride* 102 mmol/L (96-114); Potassium* 3.9 mmol/L (3.6-5.1); Sodium* 138 mmol/L (135-149)
[2022-04-13 08:53] LABS: Blood Urea Nitrogen* 21 mg/dL (7-30); Carbon Dioxide* 27 mmol/L (20-32); Creatinine* 1.4 mg/dL (0.5-1.5); Estimated Glomerular Filt Rate 59 ml/min; Glucose* 102 mg/dL (60-115)
[2022-04-13 08:54] LABS: Calcium* 8.7 mg/dL (8.4-10.6)
[2022-04-13] MEDS: hydroCHLOROthiazide 25 MG TABLET PO (09:22)
[2022-04-13] MEDS: LOSARTAN POTASSIUM 50 MG TABLET PO (09:22)
[2022-04-13 11:00] VITALS: BP 134/76; PULSE 56; RESP 16; TEMP 36.7; O2SAT 97
--- NOTE | 2022-04-13 11:54 | PM.GSPN ---
Subjective Subjective Date Seen: 04/13/22 Interval history: Patient is doing very well this morning. He was able to sleep overnight. He has had only a small amount of pain, which has been controlled with medication. He does report that he passed gas and is feeling very hungry this morning. Denies any nausea or vomiting. Has been up to walk the halls. Exam Narrative: Exam Narrative: General: Alert and oriented, no acute distress. Sitting comfortably in bed Respiratory: Equal breath rise bilaterally, maintained on room air CV: Regular rhythm rate Abdomen: Obese abdomen, soft and nontender. Dressing was taken down at bedside. Ostomy wound with healthy fat within wound bed, no concern for infection or significant drainage noted. Const: Vital Signs, click to edit/add: Vital Signs - 24 hr 04/12/22 14:10 04/12/22 14:06 04/12/22 14:07 Temperature Pulse Rate 74 73 68 Pulse Rate [Right Pulse Oximeter] Respiratory Rate 18 Blood Pressure 120/73 130/73 126/73 Blood Pressure [Ri ght Arm] Pulse Oximetry 99 99 99 Oxygen Delivery Me thod OxyMask OxyMask 04/12/22 13:55 04/12/22 14:15 04/12/22 14:08 Temperature 97.4 F L Pulse Rate 77 70 70 Pulse Rate [Right Pulse Oximeter] Respiratory Rate 16 18 Blood Pressure 132/72 122/72 Blood Pressure [Ri ght Arm] Pulse Oximetry 98 97 99 Oxygen Delivery Me thod OxyMask Room Air 04/12/22 14:09 04/12/22 14:10 04/12/22 14:11 Temperature Pulse Rate 71 79 75 Pulse Rate [Right Pulse Oximeter] Respiratory Rate Blood Pressure Blood Pressure [Ri ght Arm] Pulse Oximetry 99 98 100 Oxygen Delivery Me thod 04/12/22 14:12 04/12/22 14:13 04/12/22 14:14 Temperature Pulse Rate 67 66 69 Pulse Rate [Right Pulse Oximeter] Respiratory Rate Blood Pressure 120/73 Blood Pressure [Ri ght Arm] Pulse Oximetry 99 99 99 Oxygen Delivery Me thod 04/12/22 14:15 04/12/22 14:16 04/12/22 14:17 Temperature Pulse Rate 65 66 65 Pulse Rate [Right Pulse Oximeter] Respiratory Rate Blood Pressure 122/72 Blood Pressure [Ri ght Arm] Pulse Oximetry 100 99 100 Oxygen Delivery Me thod 04/12/22 14:18 04/12/22 14:19 04/12/22 14:20 Temperature Pulse Rate 68 70 79 Pulse Rate [Right Pulse Oximeter] Respiratory Rate 12 Blood Pressure 126/77 Blood Pressure [Ri ght Arm] Pulse Oximetry 100 100 100 Oxygen Delivery Me thod 04/12/22 14:25 04/12/22 14:40 04/12/22 14:45 Temperature 97.0 F L Pulse Rate 69 66 Pulse Rate [Right Pulse Oximeter] 67 Respiratory Rate 12 18 18 Blood Pressure 126/69 Blood Pressure [Ri ght Arm] 132/74 143/73 H Pulse Oximetry 93 97 Oxygen Delivery Me thod Room Air Room Air Room Air 04/12/22 15:00 04/12/22 15:15 04/12/22 15:30 Temperature 97.0 F L 97.2 F L Pulse Rate Pulse Rate [Right Pulse Oximeter] 64 79 80 Respiratory Rate 16 16 18 Blood Pressure Blood Pressure [Ri ght Arm] 144/82 H 138/82 138/78 Pulse Oximetry 95 97 98 Oxygen Delivery Me thod Room Air Room Air Room Air 04/12/22 15:45 04/12/22 16:00 04/12/22 16:15 Temperature Pulse Rate Pulse Rate [Right Pulse Oximeter] 63 63 64 Respiratory Rate 18 16 16 Blood Pressure Blood Pressure [Ri ght Arm] 136/73 130/73 133/70 Pulse Oximetry 96 98 97 Oxygen Delivery Me thod Room Air Room Air Room Air 04/12/22 16:30 04/12/22 16:45 04/12/22 17:00 Temperature Pulse Rate Pulse Rate [Right Pulse Oximeter] 64 69 70 Respiratory Rate 18 18 16 Blood Pressure Blood Pressure [Ri ght Arm] 136/61 117/62 129/67 Pulse Oximetry 95 95 95 Oxygen Delivery Me thod Room Air Room Air Room Air 04/12/22 18:07 04/12/22 23:00 04/12/22 23:00 Temperature 98.3 F Pulse Rate Pulse Rate [Right Pulse Oximeter] 73 73 72 Respiratory Rate 18 18 16 Blood Pressure Blood Pressure [Ri ght Arm] 110/51 L 115/67 Pulse Oximetry 97 96 Oxygen Delivery Me thod Room Air Room Air 04/13/22 03:00 04/13/22 07:00 04/13/22 07:00 Temperature 98.7 F 98.0 F Pulse Rate Pulse Rate [Right Pulse Oximeter] 74 56 L 58 L Respiratory Rate 16 16 16 Blood Pressure Blood Pressure [Ri ght Arm] 128/62 121/59 L Pulse Oximetry 92 100 Oxygen Delivery Me thod CPAP CPAP 04/13/22 11:00 Temperature 98.1 F Pulse Rate Pulse Rate [Right Pulse Oximeter] 56 L Respiratory Rate 16 Blood Pressure Blood Pressure [Ri ght Arm] 134/76 Pulse Oximetry 97 Oxygen Delivery Me thod CPAP Labs/Imaging Labs Labs: Hemoglobin appropriately dropped to 12.8, likely representing intraoperative blood loss and dilution. BMP within normal limits Imaging Imaging: No new imaging Progress Note: A&P Assessment and plan (1) H/O abdominal surgery: Status: Acute Assessment and Plan: Patient is postop day 1 ileostomy takedown. No acute events overnight and vital signs stable. Labs are within normal limits. Hemoglobin of 12.8 consistent with intraoperative blood loss and dilution, no concern for ongoing bleeding. Patient is reporting return of bowel function with passage of gas this morning. This is earlier than would be expected, so will go slow with diet and start with clear liquids this morning. -clear liquids, DC IV fluids -IV and p.o. pain meds as needed -encourage ambulation -SCDs and Lovenox for DVT prophylaxis
[2022-04-13 14:36] VITALS: BP 107/91; PULSE 59; RESP 16; TEMP 37; O2SAT 95
[2022-04-13 19:00] VITALS: BP 116/76; PULSE 50; RESP 18; TEMP 36.9; O2SAT 95
--- NOTE | 2022-04-13 19:37 | PC.NURSE ---
Pt. alert and oriented. rating pain 0 prn toradol administered before dressing change. Pt. had two dressing changes, 4x4 wet to dry and cover with ABD. Walked halls x10, tolerated well. Pt. denies lightheaded or dizziness.? Bowel sounds active and passed gas throughout shift. Had 2 bowel movements this evening. Pt. tolerating full liquid diet well.
[2022-04-13] MEDS: ENOXAPARIN 40 MG/0.4 ML INJ SUBCUT (20:30)
[2022-04-13 23:00] VITALS: BP 98/58; PULSE 51; RESP 18; TEMP 36.8; O2SAT 95
[2022-04-14 03:00] VITALS: BP 94/50; PULSE 52; RESP 18; TEMP 36.6; O2SAT 96
--- NOTE | 2022-04-14 04:53 | ED.NURSE ---
Shift note: Pt is doing well with independent ambulation. Pain level has been at the minimal, averaging 1/10. 2 BM yesterday according to the day shift report. Tolerating clear liquid diet very well, no N/V/D. Dressing clean and dry. V/S WNL.
[2022-04-14] MEDS: LEVOTHYROXINE 100 MCG TABLET PO (06:20)
[2022-04-14] MEDS: LEVOTHYROXINE 75 MCG TABLET PO (06:21)
[2022-04-14 07:00] VITALS: BP 138/84; PULSE 53; RESP 22; TEMP 36.9; O2SAT 95
[2022-04-14] MEDS: hydroCHLOROthiazide 25 MG TABLET PO (08:40)
[2022-04-14] MEDS: LOSARTAN POTASSIUM 50 MG TABLET PO (08:40)
[2022-04-14] MEDS: SODIUM CHLORIDE 0.9 % (FLUSH) 10 ML SYRINGE 5 ML IVF (08:41)
--- NOTE | 2022-04-14 10:28 | PM.GSPN ---
Subjective Subjective Date Seen: 04/14/22 Interval history: Patient is doing very well this morning. He has had several liquidy stools and continues to pass gas. Has been tolerating full liquids and is feeling hungry this morning. Has been ambulating without difficulty and not needed any narcotic pain medicine. No concerns. Exam Narrative: Exam Narrative: General: Alert and oriented, no acute distress. Sitting comfortably in bed. Abdomen: Obese abdomen, soft and nontender. Dressings taking down stoma wound with evidence of healthy granulation tissue, no concern for infection. Const: Vital Signs, click to edit/add: Vital Signs - 24 hr 04/13/22 11:00 04/13/22 14:36 04/13/22 14:36 Temperature 98.1 F 98.6 F Pulse Rate [Right Pulse Oximeter] 56 L 59 L 59 L Respiratory Rate 16 16 16 Blood Pressure [Ri ght Arm] 134/76 107/91 H Pulse Oximetry 97 95 Oxygen Delivery Me thod CPAP Room Air CPAP 04/13/22 19:00 04/13/22 23:00 04/14/22 03:00 Temperature 98.5 F 98.2 F 98 F Pulse Rate [Right Pulse Oximeter] 50 L 51 L 52 L Respiratory Rate 18 18 18 Blood Pressure [Ri ght Arm] 116/76 98/58 L 94/50 L Pulse Oximetry 95 95 96 Oxygen Delivery Me thod Room Air CPAP Room Air CPAP Room Air CPAP 04/14/22 07:00 04/14/22 07:00 Temperature 98.4 F Pulse Rate [Right Pulse Oximeter] 53 L 53 L Respiratory Rate 22 22 Blood Pressure [Ri ght Arm] 138/84 Pulse Oximetry 95 Oxygen Delivery Me thod Room Air CPAP Progress Note: A&P Assessment and plan (1) H/O abdominal surgery: Status: Acute Assessment and Plan: Patient is postop day 2 ileostomy takedown. No acute events overnight and vital signs stable. Has had return of bowel function and is tolerating advancement of his diet. Patient was educated regarding dressing changes, recommend daily dressing changes. Will schedule follow-up appointment with the patient in the Wound Clinic on 04/18/2022. Anticipate discharge later this afternoon if tolerating regular diet.
--- NOTE | 2022-04-14 10:34 | PM.DS1 ---
DS: Providers Provider Date Seen: 04/14/22 Date of admission: 04/12/22 10:23 Primary care physician: Oliver Lilly MD Admitting Clinician: Marlene Damon MD Attending Physician on discharge: Marlene Damon MD DS: Summary Hospital Course Hospital Course: Patient underwent an ileostomy takedown. Postoperatively he did very well. He had evidence of return of bowel function on postop day 1. His diet was slowly advanced to low-fiber, which it was recommended that he continue at the time of discharge. At the time of discharge his pain was well controlled without the need for narcotic pain medicine, he was ambulating and voiding independently and had had several bowel movements. Patient was also educated regarding dressing changes with plan for follow-up in the Wound Clinic. Time Spent with Patient Time attestation: Total time spent providing and/or coordinating discharge services: Exam Narrative: Exam Narrative: Please see progress note from same date. Const: Vital Signs, click to edit/add: Vital Signs - 24 hr 04/13/22 11:00 04/13/22 14:36 04/13/22 14:36 Temperature 98.1 F 98.6 F Pulse Rate [Right Pulse Oximeter] 56 L 59 L 59 L Respiratory Rate 16 16 16 Blood Pressure [Ri ght Arm] 134/76 107/91 H Pulse Oximetry 97 95 Oxygen Delivery Me thod CPAP Room Air CPAP 04/13/22 19:00 04/13/22 23:00 04/14/22 03:00 Temperature 98.5 F 98.2 F 98 F Pulse Rate [Right Pulse Oximeter] 50 L 51 L 52 L Respiratory Rate 18 18 18 Blood Pressure [Ri ght Arm] 116/76 98/58 L 94/50 L Pulse Oximetry 95 95 96 Oxygen Delivery Me thod Room Air CPAP Room Air CPAP Room Air CPAP 04/14/22 07:00 04/14/22 07:00 Temperature 98.4 F Pulse Rate [Right Pulse Oximeter] 53 L 53 L Respiratory Rate 22 22 Blood Pressure [Ri ght Arm] 138/84 Pulse Oximetry 95 Oxygen Delivery Me thod Room Air CPAP DS: Data Data Completed and Pending Completed studies during hospitalization: Procedures Bypass Ileum to Cutaneous, Open Approach (12/12/21) Resection of Sigmoid Colon, Open Approach (12/12/21) Discharge Plan Discharge Disposition: Home, Self-Care Date of Admission: 04/12/22 10:23 Attending Provider on Discharge: Marlene Damon Primary Care Provider: Oliver Lilly Condition: Improved Anticipated Discharge Date/Time: 04/14/22 10:30 Discharge Medications: Continued losartan 50 mg tablet 50 mg PO DAILY hydrochlorothiazide 25 mg tablet 25 mg PO DAILY cholecalciferol (vitamin D3) 125 mcg (5,000 unit) capsule 125 mcg PO DAILY naproxen sodium [Aleve] 220 mg capsule 440 mg PO QDAY Hold Instructions: Hold until postsurgical follow-up appointment complete testosterone cypionate 200 mg/mL oil 100 mg IM Q14D Label Comments: INJECT 1/2 ML EVERY 2 WEEKS topiramate 100 mg tablet 100 mg PO HS Lactobacillus acidophilus 0.5 mg (100 million cell) Tablet 1 tab PO TIDWM Qty: 90 0RF levothyroxine 175 mcg tablet 175 mcg PO DAILY Discontinued loperamide 2 mg capsule 2 mg PO QID PRN (Reason: loose stool) Qty: 90 0RF Rx Instructions: Use as needed for ileostomy output >1200cc per day. psyllium husk 6 gram/6 gram powder 1 tsp PO DAILY Qty: 450 0RF Rx Instructions: mix into at least 4 oz water or juice before administering. Use to bulk up stool. Ok to increase to twice daily if needed. Discharge Orders: Discharge Order (Routine); Ordered 04/14/22 Ordered By: Marlene Damon Patient Education: Low Fiber Diet (DC), Laparoscopic Colostomy Reversal (DC) Additional Instructions: Change your dressing daily. Place a damp 4 x 4 in the wound and cover with an outer dry dressing. Okay to shower and allow water and soap to run over the wound. Do not scrub at the wound or soak in a bath tub. An appointment will be made for you at the wound center on 04/18/2022. Activity Level: No strenuous activity Activity Detail: Activity as tolerated. Avoid strenuous activity. No lifting greater than 20 lb for 6 weeks. Discharge Diet: Low Fiber Diet Detail: Continue with a low-fiber diet until advised by your surgeon. Follow Up Appointments: [facility] [Outside] (Wound Care Center patient) Marlene Damon MD [Staff Physician] - (Patient will be followed up at the wound clinic. Please call leave a message to be added to my schedule on 04/18/2022.) Oliver Lilly MD [Primary Care Provider] - Forms: [employer] Info Instructions
[2022-04-14 11:00] VITALS: BP 127/97; PULSE 58; RESP 16; TEMP 37.1; O2SAT 96
[2022-04-14 13:57] VITALS: BP 126/69; PULSE 66; RESP 16; TEMP 37.1
--- NOTE | 2022-04-14 14:52 | PC.NURSE ---
Discharge: Patient pleasant and cooperative. Patient vitally stable, lung clear, BS WNL, IV removed, catheter intact. Patient denied pain, no pain med given. First dressing changed was done by MD with education. Second dressing change patient performed with underwriter mortgage loan standby. Patient tolerating regular diet patient has had 5 BMs, a mix of loose and liquid. R Developer assessed patient's BM after lunch it was liquid brown with some particles. Abdominal wound dressed wet to dry with gauze and tagederm over gauze, C/D/I. Patient has walked the halls multiple times. Patient signed belongings sheet and discharge form. Patient had no further questions regarding discharge. Patient left the floor at 1423 by foot with and belongings.
== END 2022-04-14 14:23 | disposition home or self-care (01) | DRG 330 ==
PROVIDERS: Admitting Provider Surgery; PCP Internal Medicine; Visit Provider Surgery
PROC: 0DBE0ZZ Excision of Large Intestine, Open Approach (ICD-10-PCS; CPT 44620; principal; 2022-04-12 11:45)
DX: Z43.2 Encounter for attention to ileostomy (principal); Z68.41 Body mass index [BMI] 40.0-44.9, adult; I10 Essential (primary) hypertension; E66.01 Morbid (severe) obesity due to excess calories; G47.33 Obstructive sleep apnea (adult) (pediatric); Z99.89 Dependence on other enabling machines and devices; D75.1 Secondary polycythemia; Q63.1 Lobulated, fused and horseshoe kidney; Z85.850 Personal history of malignant neoplasm of thyroid; Z85.47 Personal history of malignant neoplasm of testis
CPT/HCPCS: 00840; 36415; 64488; 76942; 80048; 85025; 88304; A9270; C9290; J1100; J1170; J1650; J1885; J2250; J2370; J2405; J2543; J2704; J3010; J3490; J7120

== ENCOUNTER 2022-04-18 10:46 | Outpatient (CLI) | payer OTHER, SELFPAY | END 2022-04-18 10:47 | disposition home or self-care (01) | LOC: WOUND 10:46 | PROVIDERS: PCP Internal Medicine; Visit Provider Surgery | DX: T81.31XA Disruption of external operation (surgical) wound, not elsewhere classified, initial encounter (principal) | CPT/HCPCS: 97597; 99213 ==

== ENCOUNTER 2022-04-25 09:49 | Outpatient (CLI) | payer OTHER, SELFPAY ==
--- NOTE | 2022-04-25 10:00 | CRLHL7_ITS ---
For Patients: As a result of the Century Cures Act, medical imaging exams and procedure reports are released immediately into your electronic medical record. You may view this report before your referring provider. If you have questions, please contact your health care provider. INDICATION: Follow up a left renal lesion. History of thyroid, skin, and testicular cancer. More recent history of perforated sigmoid diverticulitis with surgical resection and diverting ileostomy. Reported take-down of the ileostomy approximately 2 weeks ago. TECHNIQUE: Contrast-enhanced abdominal pelvic CT. 100 cc nonionic Isovue-370 administered. COMPARISON: Correlation is made with a CT of the chest abdomen and pelvis June 10, 2020, June 16, 2021, abdominal pelvic CT December 12, 2021, and renal ultrasound April 03, 2022. FINDINGS: The previously suggested hyperdensity within the upper aspect of the left kidney is no longer convincingly visualized although please note the prior CT was without intravenous contrast and today`s CT is with intravenous contrast. Regardless there is no convincing evidence for a complex cystic or solid mass of either kidney. 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 No hydronephrosis. The previous identified free air and active diverticulitis seen on the most recent CT December 12, 2021 have all resolved. Postsurgical change from takedown of the ileostomy right mid abdomen wall. No bowel obstruction ileus. No ascites or lymphadenopathy. Mild fatty infiltration of the liver. Calcified splenic granulomas. Normal adrenal glands and pancreas. Absent gallbladder. Vascular calcification within a tortuous normal caliber abdominal aorta and iliac arteries. Normal inferior vena cava. The urinary bladder is unremarkable although largely decompressed. Calcifications within the minimally enlarged prostate gland. Granulomatous change left hemithorax. Multilevel degenerative disc disease of the included spine. IMPRESSION: 1. No renal lesion or mass identified. 2. 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 3. Partial sigmoid resection and reanastomosis with takedown of the diverting ileostomy reportedly 2 weeks ago. 4. Granulomatous change left hemithorax and within the spleen. Please note that all CT scans at this facility use dose modulation, iterative reconstruction, and/or weight-based dosing when appropriate to reduce radiation dose to as low as reasonably achievable. Dictated by Chinedu Gonzalez MD @ 04/25/2022 11:43:54 AM (Electronically Signed)
== END 2022-04-25 09:50 | disposition home or self-care (01) ==
LOC: CT 09:49
PROVIDERS: PCP Internal Medicine; Visit Provider Internal Medicine
DX: N28.89 Other specified disorders of kidney and ureter (principal)
CPT/HCPCS: 74177; Q9967

== ENCOUNTER 2022-05-02 10:28 | Outpatient (CLI) | payer OTHER, SELFPAY | END 2022-05-02 10:29 | disposition home or self-care (01) | LOC: WOUND 10:28 | PROVIDERS: PCP Internal Medicine; Visit Provider Surgery | DX: T81.31XA Disruption of external operation (surgical) wound, not elsewhere classified, initial encounter (principal) | CPT/HCPCS: 97597 ==

== ENCOUNTER 2022-05-16 10:14 | Outpatient (CLI) | payer OTHER, SELFPAY | END 2022-05-16 10:15 | disposition home or self-care (01) | LOC: WOUND 10:14 | PROVIDERS: PCP Internal Medicine; Visit Provider Surgery | DX: T81.31XA Disruption of external operation (surgical) wound, not elsewhere classified, initial encounter (principal) | CPT/HCPCS: 99213 ==

== ENCOUNTER 2022-05-16 10:45 | Outpatient (RCR) | payer OTHER, SELFPAY ==
[2022-05-15 16:08] LABS: Basophils Absolute Auto 0.03 K/uL (0.00-0.30); Basophils Percent Auto 0.3 % (0.0-3.0); Eosinophils Absolute Auto 0.11 K/uL (0.00-0.50); Eosinophils Percent Auto 1.1 % (0.0-7.0); Hematocrit 43.1 % (37.0-53.0); Hemoglobin* 13.5 gm/dL (13.5-17.5); Immature Granulocytes Abs Auto 0.02 K/uL (0.00-0.30); Immature Granulocytes Pct Auto 0.2 %; Lymphocytes Absolute Auto 2.15 K/uL (0.90-2.90); Lymphocytes Percent Auto 21.5 % (20-44); Mean Corpuscular HGB Conc 31 gm/dL (32-36); Mean Corpuscular Hemoglobin 27 pg (26-34); Mean Corpuscular Volume 86 fL (80-100); Monocytes Percent Auto 7.3 % (0.0-11.0); Neutrophils Absolute Auto 6.97 K/uL (1.7-7.0); Neutrophils Percent Auto 69.6 % (42.0-72.0); Platelet Count* 226 K/uL (140-440); RDW Coefficient of Variation % 14.1 % (11.5-15.5); White Blood Count* 10.01 K/uL (4.50-11.00)
[2022-05-15 16:27] LABS: Slide Review Reflex No
[2022-05-15 16:34] LABS: Albumin* 4.4 g/dL (3.3-5.0); Chloride* 98 mmol/L (96-114); Sodium* 139 mmol/L (135-149)
[2022-05-15 16:36] LABS: Creatinine* 1.3 mg/dL (0.5-1.5); Estimated Glomerular Filt Rate 64 ml/min
[2022-05-15 16:37] LABS: Alanine Aminotransferase* 26 U/L (4-50); Alkaline Phosphatase* 65 U/L (40-150); Aspartate Amino Transferase* 23 U/L (12-35); Bilirubin Total* 0.5 mg/dL (0.1-1.5); Blood Urea Nitrogen* 20 mg/dL (7-30); Carbon Dioxide* 33 mmol/L (20-32); Glucose* 121 mg/dL (60-115); Lactate Dehydrogenase* 153 U/L (120-246); Total Protein* 7.3 g/dL (6.0-8.3)
[2022-05-15 16:38] LABS: Calcium* 9.2 mg/dL (8.4-10.6)
[2022-05-17 20:45] LABS: Alpha Fetoprotein Tumor Marker 2 ng/mL (0-9)
[2022-05-18 02:24] LABS: Beta-hCG Quant Tumor Marker <1 IU/L (0-3)
[2022-05-23 21:57] LABS: Beta-hCG Quant Tumor Marker <1 IU/L (0-3)
== END 2022-11-11 23:59 | disposition home or self-care (01) ==
LOC: CCIC 10:45
PROVIDERS: PCP Internal Medicine; Referring Provider Internal Medicine; Visit Provider Internal Medicine Hematology & Oncology
DX: C63.2 Malignant neoplasm of scrotum (principal); C62.92 Malignant neoplasm of left testis, unspecified whether descended or undescended; C73 Malignant neoplasm of thyroid gland; D75.1 Secondary polycythemia
CPT/HCPCS: 36415; 80053; 82105; 83615; 84704; 85025; 99212; 99214

== ENCOUNTER 2022-06-04 12:51 | Outpatient (CLI) | payer OTHER, SELFPAY | END 2022-06-04 12:52 | disposition home or self-care (01) | LOC: CT 12:52 | PROVIDERS: PCP Internal Medicine; Visit Provider Orthopaedic Surgery Sports Medicine | DX: M19.012 Primary osteoarthritis, left shoulder (principal); Z01.818 Encounter for other preprocedural examination | CPT/HCPCS: 73200 ==

== ENCOUNTER 2022-07-09 09:45 | Outpatient (CLI) | payer OTHER, SELFPAY ==
[2022-07-09 11:22] LABS: Albumin* 4.1 g/dL (3.3-5.0); Chloride* 102 mmol/L (96-114)
[2022-07-09 11:23] LABS: Potassium* 4.3 mmol/L (3.6-5.1); Sodium* 140 mmol/L (135-149)
[2022-07-09 11:25] LABS: Alanine Aminotransferase* 29 U/L (4-50); Alkaline Phosphatase* 59 U/L (40-150); Aspartate Amino Transferase* 25 U/L (12-35); Bilirubin Total* 0.6 mg/dL (0.1-1.5); Blood Urea Nitrogen* 16 mg/dL (7-30); Carbon Dioxide* 30 mmol/L (20-32); Creatinine* 1.2 mg/dL (0.5-1.5); Estimated Glomerular Filt Rate 71 ml/min; Glucose* 171 mg/dL (60-115); Total Protein* 6.7 g/dL (6.0-8.3)
== END 2022-07-09 09:46 | disposition home or self-care (01) ==
LOC: NFLDREF 09:46
PROVIDERS: PCP Internal Medicine; Visit Provider Internal Medicine
DX: Z01.818 Encounter for other preprocedural examination (principal)
CPT/HCPCS: 80053

== ENCOUNTER 2022-07-25 16:11 | Inpatient (IN) | payer OTHER, SELFPAY ==
[2022-07-25] VITALS (28 sets, daily range): BP systolic 88–147; BP diastolic 63–84; PULSE 60–99; RESP 14–20; TEMP 36.4–37.5; O2SAT 88–99; BMI 45.6
[2022-07-25] MEDS: CELECOXIB 200 MG CAPSULE PO (08:51)
[2022-07-25] MEDS: ACETAMINOPHEN 500 MG TABLET 1000 MG PO ×2 (08:51→18:10)
[2022-07-25] MEDS: OXYCODONE (CR) 10 MG TAB.ER.12H PO (08:51)
[2022-07-25] MEDS: SODIUM CHLORIDE 0.9 % (FLUSH) 10 ML SYRINGE IVF (09:15)
[2022-07-25] MEDS: LACTATED RINGERS 1000 ML 1,000 ML 100 ML IV ×3 (09:15→14:50)
--- NOTE | 2022-07-25 10:07 | CRLHL7_ITS ---
For Patients: As a result of the Cures Act, medical imaging exams and procedure reports are released immediately into your electronic medical record. You may view this report before your referring provider. If you have questions, please contact your health care provider. INDICATION: Follow up left shoulder arthroplasty. TECHNIQUE: Two views of the left shoulder. COMPARISON: Pre-surgical images May 29, 2022. FINDINGS: Left total shoulder arthroplasty. The components are adequately aligned and well seated. Degenerative change of the AC joint. IMPRESSION: Left shoulder arthroplasty. The components are adequately aligned and well seated. Dictated by Chinedu Gonzalez MD @ 07/25/2022 9:56:40 PM (Electronically Signed)
[2022-07-25] MEDS: SCOPOLAMINE 1 MG/3 DAY PATCH 1 PATCH TRANSDERMA (10:42)
--- NOTE | 2022-07-25 10:46 | SUR.PREOP ---
TIME?OUT:?1047 PT/RN/MDA?VERIFICATION?OF?SURGICAL?SITE,?PROCEDURE,?AND?CONSENT OBTAINED?PRIOR?TO?INVASIVE?PROCEDURE.
[2022-07-25] MEDS: MIDAZOLAM HCL 1 MG/ML inj IVP (10:50)
[2022-07-25] MEDS: fentaNYL 100 MCG/2 ML inj IVP (10:50)
[2022-07-25] MEDS: CEFAZOLIN 1 GM inj 3 GM IVP (11:15)
[2022-07-25] MEDS: TRANEXAMIC ACID 100 MG/ML INJ 1000 MG IV (11:15)
--- NOTE | 2022-07-25 11:39 | W.PM.NB ---
Nerve Block Nerve Block Time Seen by Provider: 11:10 Date Seen: 07/25/22 Type of block requested by surgeon for post-operative analgesia: supraclavicular Side: left Time out performed: Yes Verification of patient name: Yes Verification of date of : Yes Site marking: site marked Name of person performing procedure: Marcelino Naranjo Continuous monitoring Was continuous monitoring of O2 sat, B/P, hospital monitor, recorded every 15 minutes?: Yes Procedure Checklist: sterile prep, needles and gloves Ultrasound guided. Images saved: Yes Medications given in 5ml increments after negative aspiration: Ropivicaine %: 0.5 mL: 25 Needle gauge: 21 Decadron (mg): 10 Precedex (mcg): 25 Patient tolerated procedure well: Yes Block Charges Block Charge (with Pro Fee): Brachial Plexus Use of Ultrasound Machine for Block: Yes- US Guidance/pain block
--- NOTE | 2022-07-25 14:16 | P.ORPRC_ITS ---
Procedure Note Date of procedure: 07/25/22 Procedure: PREOPERATIVE DIAGNOSIS: 1. Left shoulder osteoarthrosis, primary, severe POSTOPERATIVE DIAGNOSIS: 1. Left shoulder osteoarthrosis, primary, severe 2. Left shoulder long head of biceps tendinopathy / tenosynovitis PROCEDURE: 1. Left total shoulder arthroplasty-anatomic * of note, 33% added time and difficulty for this case due to patient's body habitus (muscular), body mass (BMI 45.6), and shoulder/chest girth (large) * 2. Left shoulder long head of biceps open tenodesis] ' SURGEON: Favian Murillo MD. CLUB ROOM ATTENDANT: Nikunj Lindquist PA-C; Maynor DUNHAM - Of note, a skilled assistant professor of criminal justice was critical for this case to aid in patient positioning, tissue retraction, limb manipulation/positioning, awareness of and protection of critical structures, and closure. ANESTHESIA: General plus interscalene block EBL: 400 mL IMPLANTS: DJO Altravate CS edge pegged cemented glenoid (size 54), CS edge stemless (size 3); neutral neck; head 54 x 20 mm COMPLICATIONS: None evident INDICATIONS: The patient is a pleasant 57-year-old male who has experienced severe left shoulder pain and difficulty with use. Workup included x-rays which revealed severe osteoarthrosis. Physical exam was consistent with associated pain. Given the deformity, the dysfunction, and the pain, recommendation was made for surgery. DESCRIPTION OF PROCEDURE: Following a thorough discussion of risks, benefits, and alternatives, consent was obtained and the left shoulder was marked. The patient was brought to the operating room and placed supine on the operating table. Induction of anesthesia was undertaken. 3 g IV Ancef and 1 g tranexamic acid was administered within 1 hr of incision preoperatively. Appropriate time- out was performed identifying proper patient, site, and procedure. The operative extremity was prepped and draped in the appropriate sterile fashion using ChloraPrep after the patient was positioned in the beach chair with head in neutral alignment and all bony prominences well padded. A longitudinal incision was made for deltopectoral approach. Deltoid and cephalic vein were retracted laterally, and was spared throughout the case. The clavipectoral fascia was identified and divided longitudinally staying lateral to the conjoined tendon / coracoid. The conjoined tendon was protected with a blunt Hohmann. The long head of the biceps tendon was identified and tenodesis performed suturing it to the pectoralis major tendon at their confluence. The upper 1/3-1/2 of the pectoralis major was 1st released from its insertion. The superior portion of the rotator cuff was inspected and found to have good integrity. The subscapularis was released from its lesser tuberosity via a tenotomy down through the 3 sisters which were ligated and cauterized. After releasing the subscapularis, the capsule was released from the inferior humeral neck allowing us to remove the inferior humeral head osteophyte. The subscapularis was also released from the superior glenohumeral ligament and middle glenohumeral ligament. It was then tucked into the subscapularis fossa anteriorly, and we turned our attention to the humeral preparation. The humerus was dislocated, and humeral head cut performed paying attention to the patient's cantwell version anatomy. With the associated protocol, the guide pin was drilled through the lateral humeral cortex, a Blazer size 3 was applied, and the humerus was planed. The humerus was then protected with a plate and attention was turned to the glenoid preparation. The humerus was retracted posteriorly. The subscap was protected anteriorly and the labrum was released along the glenoid anterior, inferior and posterioinferior regions via combination of 15 blade and Roman elevator. Based on the preoperative CT scan of the shoulder, the shoulder was found have approximately 4? of anteversion to the glenoid. The goal of correction was to make this neutral between eccentric reaming and any potential augmented glenoid component. The guide was applied to the cantwell glenoid after determining the curvature of radius to be best fit with curvature as noted above. The guide pin was placed and the subsequent preparation performed with Reamer down to cortic al/subchondral bone, central boss drill, and peripheral peg drill. A glenoid trial was placed with good security, and the real glenoid implant opened. Cement was mixed on the back table. Thorough irrigation normal saline of the glenoid vault was performed with suction of the peg holes. Cement into the 3 peripheral peg holes was performed and the glenoid component inserted and held until cement had cured. We then turned our attention back to the humerus. Consistent with the preop planning, the appropriate head was selected, trialed, and found have an excellent fixation and tension. 50% bounce-back was visualized with posterior directed force, internal rotation was achieved to 60? comfortably, and conjoined tendon had good tension. At this stage, a 3 min Betadine soak was performed f ollowed by a thorough irrigation with normal saline. Subscapularis was reapproximated with # 1 PDS (x1) and # 3 FiberWire (x3). The deltopectoral interval was reapproximated with 0 Vicryl, subcutaneous and subcuticular closure was then performed with number 2-0 Vicryl and 4-0 Monocryl, respectively. A skilled assistant professor of criminal justice was critical for this case to aid in patient positioning, tissue retraction, bone exposure, limb manipulation/positioning, shoulder dislocation/relocation, patient safety, and closure. *Again, of note, 33% added time and difficulty for this case due to patient's body habitus (muscular), body mass (BMI 45.6), and shoulder/chest girth (large). This was seen to the use of deeper retractors, more assistance, and longer time for dissection to help mobilize the muscular plane as well as the capsular tissue subperiosteally. * PLAN: 1. Sling at all times operative extremity. May come out of this for elbow, forearm, wrist, and digit range of motion. 2. PT & OT consults for education and assistance. 3. Social consult for discharge planning. 4. 23 hr perioperative antibiotics. 5. Early ambulation, and SCDs for DVT prophylaxis.
--- NOTE | 2022-07-25 15:56 | W.ANESCHARGE ---
Anesthesia Charges Start Date/Time Anesthesia Start Date: 07/25/22 Anesthesia Start Time: 11:09 Stop Date/Time Anesthesia Stop Date: 07/25/22 Anesthesia Stop Time: 15:10
--- NOTE | 2022-07-25 15:59 | PM.IMCN1 ---
Date of Consult Patient: [facility] Patient Consult date: 07/25/22 Requesting Physician: Orthopedics Primary Care Provider: Oliver Lilly MD Consult Narrative Reason for consult: Postop management: upper airway obstruction, HARRIET, hypothyroidism, HTN Narrative: Shad Neri Jr is a 57 year old man who presents today for an elective left shoulder arthroplasty due to severe primary left shoulder osteoarthritis. Intraoperatively noted to also have tendinopathy and tenosynovitis of the left shoulder long head of biceps. Undergoes left shoulder arthroplasty and left shoulder long head of biceps open tenodesis. No apparent operative complications noted. Did have general anesthesia with intubation and ventilation. Noted to be a very difficult intubation. Historically has previously had very difficult intubations as well. Propofol was used due to history of nausea and vomiting with other general anesthetic agents. Has not had any nausea or vomiting postoperatively. Postoperatively there was concern about his ability to manage his airway. Oral airway was left in place for about an hour before was removed. He was having difficulties clearing his upper airway of secretions. In time we were able to safely remove the oral airway. He was then able to clear his secretions. Did have stridor for a wire. Racemic epinephrine was administered via nebulization which helped a great deal as well with resolution of the stridor. Once his airway was more secure, breathing was stabilized, vascular access was more securely established, he was more awake and interactive, we then transferred him to the medical-surgical floor ICU for ongoing management. Review of Systems Status of ROS: Reports: 10 or more systems reviewed and unremarkable except as noted in History and below Narrative: Preoperative assessment note reviewed. No concerns at that time. Does use his CPAP daily. Not utilize oxygen supplementation at home. No recent fevers, rigors, diaphoresis. No recent upper or lower airway infections or concerns aside from his obstructive sleep apnea and Mallampati class 4 airway with longstanding history of difficult intubations in consequence of the same. No angina or anginal equivalent. No syncope or near syncope. No bradycardia, tachycardia, palpitations, or chest fluttering. No nausea or vomiting. No dyspnea at rest, paroxysmal nocturnal dyspnea, orthopnea. No unusual cough. No recent edema or claudication. No recent weight gain or weight loss. No night sweats. Continues to follow with his oncologist on a regular basis. Most recently assessed by his oncologist on 05/16/2022. 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 Status post left orchiectomy a left inguinal lymph node dissection with staging of pT1b N0 M0. Did not receive any adjuvant chemotherapy since it was considered to be beneficial. In regard to his thyroid papillary cancer for which he underwent a total thyroidectomy with radioactive iodine therapy continues to do well on current thyroid hormone replacement therapy and no indication of recurrence noted. 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 Testosterone can cause polycythemia up to 40% of the time. Increased risk of venous thromboembolism in this regard is noted. Has not required phlebotomies or any other interventions at this juncture. Once again continues to work closely with his oncologist in regard to these 3 different conditions. [facility] Medical History (Updated 07/25/22 @ 16:34 by Thom Pablo MD) Abdominal pain Airway obstruction, anatomic Colonoscopy causing post-procedural bleeding CPAP (continuous positive airway pressure) dependence Diverticulitis of colon with perforation Diverticulosis Essential (primary) hypertension Health care directive on file Horseshoe kidney Hypothyroidism associated with surgical procedure Kidney mass Leiomyosarcoma Obesity, morbid, BMI 40.0-49.9 Obstructive sleep apnea Papillary thyroid carcinoma POLST (Physician Orders for Life-Sustaining Treatment) Polycythemia Pre-op exam Recurrent urinary tract infection Surgical History S/P left knee arthroscopy (06/10/19) S/P right knee arthroscopy (05/15/07) Status post arthroscopy of right shoulder (07/07/14) Status post total knee replacement, left (05/15/18) Status post total replacement of left shoulder (07/25/22) Status post total right knee replacement (07/08/13) Status post total thyroidectomy Social History How hard is it for you to pay for the very basics like food, housing, medical care, and heating: not applicable Smoking Status: Former smoker Do you use any of these nicotine containing products: None Second hand tobacco smoke exposure: No How often do you have a drink containing alcohol: monthly or less How often do you have six or more drinks on one occasion: Never AUDIT-C Alcohol total score: 1 Non-prescribed substance use: denies use Caffeine: No Are you now , , , , never or living with a partner: In a typical week, how many times do you talk on the telephone with family, friends, or neighbors: three or more times per week How often do you get together with friends or relatives?: three or more times per week Social isolation score (0-1 are the most socially isolated patients): 2 Feel stressed/tense/nervous/anxious/difficulty sleeping: not at all service: No Meds Home Medications and Allergies Home Medications Medication Instructions Recorded Confirmed Type cholecalciferol (vitamin D3) 125 125 mcg PO DAILY 12/12/21 07/25/22 History mcg (5,000 unit) capsule hydrochlorothiazide 25 mg tablet 25 mg PO DAILY 12/12/21 07/25/22 History naproxen sodium 220 mg capsule 440 mg PO DAILY 12/12/21 07/25/22 History (Aleve) testosterone cypionate 200 mg/mL 100 mg IM Q14D 12/13/21 07/25/22 History intramuscular oil levothyroxine 175 mcg tablet 175 mcg PO DAILY 04/10/22 07/25/22 History Allergies Allergy/AdvReac Type Severity Reaction Status Date / Time lisinopril AdvReac Intermediate Cough Verified 07/25/22 08:40 Exam Narrative: Exam Narrative: Initially when I see him he has an oral airway in place and is still awakening from anesthesia. I am continue to monitor and examine him over the course of 45 minutes and during that time he gradually awakens. Were able to remove the oral airway. He is able to maintain his airway without the support of the oral airway in place. He is able to cough and clear secretions better. Initially he has stridor when I walk in the room. We administer racemic epinephrine, we use oral suction, he is able to cough and clear the secretions better, and he is eventually his stridor resolves. After about an hour of examining him closely and working with him and the nursing staff, the nurse cryptologic supervisor, and our respiratory therapist, he is more awake and interactive. We then transfer him to the medical floor. Alert, oriented to self, place, time, situation. Still not very talkative but mood and affect are congruent. He is able to tell me that he is very uncomfortable in this hospital bed and that he has to go pee. Able to follow simple 1 and 2 step commands. He is morbidly obese with a body mass index of 45. Neck circumference is massive. Mallampati class 4 airway. Still has some scattered rhonchi in his lungs. No longer has stridor. No wheezing. No rales. No CVA tenderness. Heart tones are distant with regular rhythm, normal S1-S2. No obvious murmur, gallop, or rub. Abdomen is obese, protuberant, with active bowel sounds, soft, nontender. Multiple scars on abdomen from previous surgeries. Moves all 4 extremities. Trace edema pretibially bilaterally. Right shoulder immobilizer and brace is in place. Const: Vital Signs, click to edit/add: Vital Signs - 24 hr 07/25/22 09:16 07/25/22 10:49 07/25/22 10:55 Temperature 99.5 F Pulse Rate 71 68 66 Respiratory Rate 18 16 16 Blood Pressure 144/82 H 141/81 H 128/75 Pulse Oximetry 96 98 96 Oxygen Delivery Me thod Room Air Nasal Cannula Nasal Cannula Oxygen Flow Rate 2 2 07/25/22 11:00 07/25/22 14:56 07/25/22 15:00 Temperature 98.8 F 97.9 F Pulse Rate 60 84 78 Respiratory Rate 16 18 20 Blood Pressure 116/72 88/76 L 118/78 Pulse Oximetry 97 90 98 Oxygen Delivery Me thod Nasal Cannula Aerosol Mask Oxygen Flow Rate 2 10 07/25/22 15:05 Temperature Pulse Rate 82 Respiratory Rate 16 Blood Pressure Pulse Oximetry 97 Oxygen Delivery Me thod Oxygen Flow Rate Assessment and Plan Assessment and plan (1) Status post total replacement of left shoulder: Problem comment: left TSA and open biceps tenodesis (07/25/2022, Dr. Murillo) Status: Acute (2) Airway obstruction, anatomic: Status: Acute (3) Obstructive sleep apnea: Problem comment: on CPAP Status: Acute (4) CPAP (continuous positive airway pressure) dependence: Status: Acute (5) Obesity, morbid, BMI 40.0-49.9: Problem comment: BMI 44.6 Status: Acute (6) Essential (primary) hypertension: Problem comment: Patient is on multiple medications as an outpatient. Status: Acute (7) Polycythemia: Problem comment: Followed by hematology/oncology. Likely related to testosterone use. Status: Acute (8) Papillary thyroid carcinoma: Problem comment: Dx 11/2016, s/p total thyroidectomy followed by [facility] Status: Acute (9) Arthritis of left shoulder region: Status: Acute Plan 1. Reviewed impression with patient and . 2. Reviewed with our nurse cryptologic supervisor, Cj. 3. Admit patient to our ICU overnight. 4. Monitor airway closely. 5. Continue with his use of CPAP. 6. Assist with clearing of his upper airway secretions. 7. P.r.n. use of racemic epinephrine nebulized as needed. 8. Continue with other supportive medications. 9. Will follow closely with Orthopedic surgery while here in the hospital. 10. Oxygen as needed postoperatively. 11. Will use mechanical venous thromboembolism prophylaxis efforts for now given that he is immediately postop. His testosterone use and associated polycythemia certainly put him at a higher risk for venous thromboembolism.
--- NOTE | 2022-07-25 17:20 | RESP.RT ---
Called to PACU to see pt. emergently. PT with upper airway stridor, oral airway in. On 15L of oxygen. PT respiratory rate 22. Gave pt an albuterol nebulizer at 2.5mg followed up with an 0.5mg of racemic epinephrine in 2cc NS. PT much improved after racemic epinephrine neb. Stridor gone. BBS diminished with some Rhonchi. PT with strong frequent cough, swallowing secretions. PT now in CCU on home PAP unit, with a 3-5L of oxygen bleeding in to maintain saturations above 90% Suspect he may need a new sleep study to confirm proper pressure settings.
[2022-07-25] MEDS: LACTATED RINGERS 1000 ML 1,000 ML 75 ML IV (17:59)
[2022-07-25] MEDS: LACTOBACILLUS ACIDOPHILUS 1 TABLET 2 TAB PO (18:10)
[2022-07-25] MEDS: CEFAZOLIN 3 GM in 0.9 % SODIUM CHLORIDE Mini-bag 100 ML IVPB (18:29)
--- NOTE | 2022-07-25 19:46 | PC.NURSE ---
End of shift-- Initially pt arrived from PACU restless, but is now pleasant and cooperative, alert and oriented. VSS and pt is afebrile. SPO2 maintained >90% on RA while awake, however, pt's sats noted to drop as low as 86-87% on home CPAP with 5L O2 bled in. Crackles auscultated in bilateral bases of lungs. Pt clearing throat frequently. Pt using IS frequently independently. Dressing to left shoulder is C/D/I. Fingers remain numb and tingly, but cap refill <3sec. Cryocuff in place. He denied nausea and tolerated a regular diet without difficulty. He was up to the bathroom and voiding adequate amounts of straw colored urine and ambulated in hallway with SBA and tolerated it well. was at bedside this evening and appears loving and supportive. Report to AMANDA Fraire.
[2022-07-25] MEDS: SENNOSIDES 1 TAB TABLET 2 TAB PO (21:36)
[2022-07-25] MEDS: OXYCODONE 5 MG TABLET PO (22:24)
[2022-07-26] MEDS: ACETAMINOPHEN 500 MG TABLET 1000 MG PO ×4 (00:11→18:12)
[2022-07-26] MEDS: CEFAZOLIN 3 GM in 0.9 % SODIUM CHLORIDE Mini-bag 100 ML IVPB ×2 (02:29→10:12)
[2022-07-26 03:00] VITALS: BP 129/75; PULSE 69; RESP 18; TEMP 36.5; O2SAT 95
[2022-07-26 06:20] LABS: Hematocrit 37.7 % (37.0-53.0); Hemoglobin* 11.9 gm/dL (13.5-17.5); Mean Corpuscular HGB Conc 32 gm/dL (32-36); Mean Corpuscular Hemoglobin 25 pg (26-34); Mean Corpuscular Volume 80 fL (80-100); Platelet Count* 247 K/uL (140-440); White Blood Count* 13.61 K/uL (4.50-11.00)
[2022-07-26 06:24] LABS: Slide Review Reflex No
[2022-07-26] MEDS: OXYCODONE 5 MG TABLET PO ×3 (06:28→20:58)
[2022-07-26] MEDS: LEVOTHYROXINE 75 MCG TABLET PO (06:30)
[2022-07-26] MEDS: LEVOTHYROXINE 100 MCG TABLET PO (06:30)
[2022-07-26 06:31] LABS: Potassium* 3.7 mmol/L (3.6-5.1); Sodium* 137 mmol/L (135-149)
[2022-07-26 06:34] LABS: Creatinine* 1.3 mg/dL (0.5-1.5); Est. Creatinine Clearance* 63.45; Estimated Glomerular Filt Rate 64 ml/min
[2022-07-26 06:35] LABS: Blood Urea Nitrogen* 19 mg/dL (7-30)
[2022-07-26 07:00] VITALS: BP 151/80; PULSE 69; RESP 16; TEMP 36.8; O2SAT 94
--- NOTE | 2022-07-26 07:11 | PC.NURSE ---
Pt pleasant and cooperative. Up with minimal assist of one. Has been walking several times over night. Minimal pain last oxycodone at 0630. Fine crackles noted to bases. RA sats 93-94%. Tolerating regular diet. Left shoulder drsg CDI. Cyro cuff on.
--- NOTE | 2022-07-26 07:36 | CRLHL7_ITS ---
For Patients: As a result of the Cures Act, medical imaging exams and procedure reports are released immediately into your electronic medical record. You may view this report before your referring provider. If you have questions, please contact your health care provider. INDICATION: Stridor. TECHNIQUE: Single lateral view of the soft tissues of the neck. FINDINGS: No prevertebral soft tissue swelling. The upper airway is clear. No evidence for epiglottitis. Hypertrophic spurring C4 through C6. IMPRESSION: No prevertebral soft tissue swelling. The upper included airway is clear. Dictated by Chinedu Gonzalez MD @ 07/26/2022 9:08:50 AM (Electronically Signed)
--- NOTE | 2022-07-26 07:37 | CRLHL7_ITS ---
For Patients: As a result of the Century Cures Act, medical imaging exams and procedure reports are released immediately into your electronic medical record. You may view this report before your referring provider. If you have questions, please contact your health care provider. INDICATION: Postoperative stridor. Left shoulder replacement. The patient is unable to raise his left arm. TECHNIQUE: PA and lateral views of the soft tissues of the neck. The PA view includes the chest. FINDINGS: No definite prevertebral soft tissue swelling. Hypertrophic spurring C4, C5, and C6. C7 is not well seen on the lateral view. Scattered degenerative facet arthropathy. Probable old fracture deformity of the left clavicle. Left shoulder arthroplasty. Infiltrate or atelectasis at the left lung base. The trachea and mainstem bronchi appear grossly clear. IMPRESSION: Infiltrate or atelectasis left lung base. Degenerative change of the cervical spine. No evidence for tracheal narrowing. Dictated by Chinedu Gonzalez MD @ 07/26/2022 9:07:50 AM (Electronically Signed)
--- NOTE | 2022-07-26 07:54 | PC.NURSE ---
Late entry order - Patient order to be Inpatient CCU post-op from time of arrival to Med/Surg at 1611 on 07/25/22
[2022-07-26] MEDS: LACTOBACILLUS ACIDOPHILUS 1 TABLET 2 TAB PO (08:49)
[2022-07-26] MEDS: hydroCHLOROthiazide 25 MG TABLET PO (08:50)
[2022-07-26] MEDS: LOSARTAN POTASSIUM 50 MG TABLET PO (08:50)
[2022-07-26] MEDS: SENNOSIDES 1 TAB TABLET 2 TAB PO ×2 (08:50→20:58)
--- NOTE | 2022-07-26 09:39 | PM.ORPN ---
Subjective Subjective Date Seen: 07/26/22 Principal diagnosis: Status postop day 1 left anatomic total shoulder arthroplasty Interval history: Patient reports doing well. No acute events over night. Today, wall walking the hallways, he became short of breath and experienced labored breathing. He was brought back to his room and sat down. Breathing slowly improved. He did not feel lightheaded or dizzy, and did not experience chest pain or palpitations. At rest now, he does not feel like he needs to work hard to get a breath. Pain is very minimal as the block is still present. Pain managed with scheduled /PRN medications and ice. DVT prophylaxis includes bilateral knee high Preet stockings, and SCDs. Denies fevers, chills, aches, N/V, CP, tachycardia, or lightheadedness. Ortho Exam Narrative Exam Narrative: -Patient appears comfortable in recliner, eating breakfast; no apparent acute distress -Alert and oriented times 3 -complexion is pink, no evidence of cyanosis, pink lips -does not show labored breathing, pursed lips, or tripod position. There is no audible wheezing. -Operative shoulder swollen; soft, supple tissues; no obvious erythema. Ecchymosis minimal. Warmth appropriate -Surgical dressing clean, dry, intact; no obvious drainage, no erythematous streaking peripheral to the bandage -Bilateral calves soft and supple; no significant swelling, edema, tenderness, erythema, discoloration, warmth, or palpable cords -2+ radial pulse, intact dermatomes and myotomes distally (5/5 strength) -the nerve block is still present Const Vital Signs, click to edit/add: Vital Signs - 24 hr 07/25/22 10:49 07/25/22 10:55 07/25/22 11:00 Temperature Pulse Rate 68 66 60 Pulse Rate [Left Pulse Oximeter] Pulse Rate [Right Pulse Oximeter] Respiratory Rate 16 16 16 Blood Pressure 141/81 H 128/75 116/72 Blood Pressure [Right Arm] Pulse Oximetry 98 96 97 Oxygen Delivery Method Nasal Cannula Nasal Cannula Nasal Cannula Oxygen Flow Rate 2 2 2 07/25/22 14:56 07/25/22 15:00 07/25/22 15:05 Temperature 98.8 F 97.9 F Pulse Rate 84 78 82 Pulse Rate [Left Pulse Oximeter] Pulse Rate [Right Pulse Oximeter] Respiratory Rate 18 20 16 Blood Pressure 88/76 L 118/78 Blood Pressure [Right Arm] Pulse Oximetry 90 98 97 Oxygen Delivery Method Aerosol Mask Oxygen Flow Rate 10 07/25/22 15:10 07/25/22 15:15 07/25/22 15:20 Temperature Pulse Rate 99 78 Pulse Rate [Left Pulse Oximeter] Pulse Rate [Right Pulse Oximeter] Respiratory Rate 16 Blood Pressure 129/81 Blood Pressure [Right Arm] Pulse Oximetry 95 98 Oxygen Delivery Method Oxygen Flow Rate 07/25/22 15:25 07/25/22 15:30 07/25/22 15:35 Temperature Pulse Rate 79 83 78 Pulse Rate [Left Pulse Oximeter] Pulse Rate [Right Pulse Oximeter] Respiratory Rate 14 15 16 Blood Pressure 140/74 H 139/68 145/81 H Blood Pressure [Right Arm] Pulse Oximetry 99 98 99 Oxygen Delivery Method Oxygen Flow Rate 07/25/22 15:40 07/25/22 15:45 07/25/22 15:48 Temperature 97.7 F 97.7 F Pulse Rate 77 77 Pulse Rate [Left Pulse Oximeter] Pulse Rate [Right Pulse Oximeter] 77 Respiratory Rate 14 18 18 Blood Pressure 145/84 H Blood Pressure [Right Arm] 119/70 119/70 Pulse Oximetry 97 99 Oxygen Delivery Method OxyMask OxyMask Oxygen Flow Rate 8 8 07/25/22 16:00 07/25/22 16:15 07/25/22 16:30 Temperature 97.7 F 97.9 F 97.7 F Pulse Rate Pulse Rate [Left Pulse Oximeter] Pulse Rate [Right Pulse Oximeter] 79 86 86 Respiratory Rate 18 18 18 Blood Pressure Blood Pressure [Right Arm] 147/78 H 137/84 116/64 Pulse Oximetry 99 92 91 Oxygen Delivery Method OxyMask Room Air CPAP Oxygen Flow Rate 8 2.5 07/25/22 16:45 07/25/22 17:00 07/25/22 17:30 Temperature 97.7 F 97.7 F 97.7 F Pulse Rate Pulse Rate [Left Pulse Oximeter] Pulse Rate [Right Pulse Oximeter] 73 85 76 Respiratory Rate 16 16 16 Blood Pressure Blood Pressure [Right Arm] 114/64 119/66 121/63 Pulse Oximetry 88 91 92 Oxygen Delivery Method CPAP CPAP Room Air Oxygen Flow Rate 5 5 07/25/22 18:30 07/25/22 20:36 07/25/22 20:00 Temperature 97.7 F 97.6 F Pulse Rate Pulse Rate [Left Pulse Oximeter] Pulse Rate [Right Pulse Oximeter] 79 74 72 Respiratory Rate 16 20 Blood Pressure Blood Pressure [Right Arm] 122/83 100/70 Pulse Oximetry 93 92 Oxygen Delivery Method Room Air Room Air Oxygen Flow Rate 07/25/22 21:00 07/25/22 21:30 07/25/22 23:00 Temperature 97.7 F 97.7 F 97.7 F Pulse Rate Pulse Rate [Left Pulse Oximeter] Pulse Rate [Right Pulse Oximeter] 74 79 79 Respiratory Rate 20 18 18 Blood Pressure Blood Pressure [Right Arm] 139/81 110/70 110/70 Pulse Oximetry 93 94 92 Oxygen Delivery Method Room Air Room Air Room Air CPAP Oxygen Flow Rate 07/26/22 03:00 07/26/22 07:00 07/26/22 07:00 Temperature 97.7 F 98.3 F Pulse Rate Pulse Rate [Left Pulse Oximeter] 69 69 Pulse Rate [Right Pulse Oximeter] 69 Respiratory Rate 18 16 Blood Pressure Blood Pressure [Right Arm] 129/75 151/80 H Pulse Oximetry 95 94 Oxygen Delivery Method Room Air Room Air Oxygen Flow Rate Assessment and Plan Assessment and plan (1) Status post total replacement of left shoulder: Problem details: POD 1 left anatomic TSA and open biceps tenodesis (07/25/2022, Dr. Murillo) Status: Acute (2) Airway obstruction, anatomic: Status: Acute (3) Obstructive sleep apnea: Problem details: on CPAP Status: Acute (4) CPAP (continuous positive airway pressure) dependence: Status: Acute (5) Obesity, morbid, BMI 40.0-49.9: Problem details: BMI 45.6 Status: Acute (6) Essential (primary) hypertension: Problem details: Patient is on multiple medications as an outpatient. Status: Acute (7) Polycythemia: Problem details: Followed by hematology/oncology. Likely related to testosterone use. Status: Acute (8) Papillary thyroid carcinoma: Problem details: Dx 11/2016, s/p total thyroidectomy followed by [facility] Status: Acute (9) Arthritis of left shoulder region: Status: Acute Plan - Complete 23 hour perioperative antibiotics. - PT/OT consult for education and assistance. - Social work consult for discharge planning - Prescribed analgesics as needed - DVT prophylaxis:, bilateral knee high Preet Hose stockings and SCDs - Anticipation is for discharge to home with spouse today 07/26/2022 if the patient remains medically stable, pain is controlled, and they are safe with mobilization. He will receive both soft tissue neck and chest x-rays today, ordered by hospitalist to ensure no acute pathology that would explain his labored breathing with exertion. Again, there is no labored breathing when I was present visiting the patient, he was speaking in complete sentences, not having to stop to catch his breath. He appeared to be in good spirits. His discharge today will depend on these imaging, and hospitalist discernment if he is medically cleared to discharge home.
[2022-07-26] MEDS: RACEPINEPHRINE HCL 0.5 ML VIAL.NEB NEB ×2 (10:13→21:00)
[2022-07-26 11:00] VITALS: BP 132/62; PULSE 83; RESP 20; TEMP 36.8; O2SAT 94
--- NOTE | 2022-07-26 11:01 | PM.IMPN1 ---
Progress Note: A&P Assessment and plan (1) Status post total replacement of left shoulder: Problem details: - POD 1 left anatomic TSA and open biceps tenodesis (07/25/2022, Dr. Murillo) Status: Acute (2) Airway obstruction, anatomic: Problem details: - patient with difficulty breathing and stridor in the PACU on 07/25, responded well to racemic epinephrine - no acute findings on imaging of neck, left-sided atelectasis on chest x-ray - RT following Status: Acute (3) Obstructive sleep apnea: Problem details: - on CPAP Status: Acute (4) Obesity, morbid, BMI 40.0-49.9: Problem details: - BMI 45.6 Status: Acute (5) Essential (primary) hypertension: Problem details: - on Losartan and HCTZ Status: Acute (6) Polycythemia: Problem details: - Followed by hematology/oncology. Likely iatrogenic from testosterone use Status: Acute (7) Papillary thyroid carcinoma: Problem details: - Dx 11/2016, s/p total thyroidectomy followed by HUITRON Status: Acute Plan - recommend 1 more day of observation given severity of stridor postoperatively and need for prn racemic epinephrine - appreciate input from RT - repeat CXR 07/27 in the morning - SCDs, Teds, and ambulation for ppx Subjective Date Seen: 07/26/22 Interval history: Shad had some difficulty breathing and notable stridor postoperatively yesterday. He improved with racemic epi and did well overnight, using home CPAP. Today, he still notices some intermittent stridor, primarily positional. No concerning findings on imaging obtained this morning. Exam Narrative: Exam Narrative: GEN: Alert and oriented, speaking in full sentences HEENT: Normal external ears, EOMIs bilaterally, no scleral icterus, no crepitus or masses upon palpation of neck CV: RRR, No concerning murmurs, rubs, or gallops R: LCTA bilaterally without concerning wheezing, air movement adequate Skin: No concerning skin lesions or rashes on exposed skin Neuro: Nonfocal Psych: Appropriate Const: Vital Signs, click to edit/add: Vital Signs - 24 hr 07/25/22 14:56 07/25/22 15:00 07/25/22 15:05 Temperature 98.8 F 97.9 F Pulse Rate 84 78 82 Pulse Rate [Left P ulse Oximeter] Pulse Rate [Right Pulse Oximeter] Respiratory Rate 18 20 16 Blood Pressure 88/76 L 118/78 Blood Pressure [Ri ght Arm] Pulse Oximetry 90 98 97 Oxygen Delivery Me thod Aerosol Mask Oxygen Flow Rate 10 07/25/22 15:10 07/25/22 15:15 07/25/22 15:20 Temperature Pulse Rate 99 78 Pulse Rate [Left P ulse Oximeter] Pulse Rate [Right Pulse Oximeter] Respiratory Rate 16 Blood Pressure 129/81 Blood Pressure [Ri ght Arm] Pulse Oximetry 95 98 Oxygen Delivery Me thod Oxygen Flow Rate 07/25/22 15:25 07/25/22 15:30 07/25/22 15:35 Temperature Pulse Rate 79 83 78 Pulse Rate [Left P ulse Oximeter] Pulse Rate [Right Pulse Oximeter] Respiratory Rate 14 15 16 Blood Pressure 140/74 H 139/68 145/81 H Blood Pressure [Ri ght Arm] Pulse Oximetry 99 98 99 Oxygen Delivery Me thod Oxygen Flow Rate 07/25/22 15:40 07/25/22 15:45 07/25/22 15:48 Temperature 97.7 F 97.7 F Pulse Rate 77 77 Pulse Rate [Left P ulse Oximeter] Pulse Rate [Right Pulse Oximeter] 77 Respiratory Rate 14 18 18 Blood Pressure 145/84 H Blood Pressure [Ri ght Arm] 119/70 119/70 Pulse Oximetry 97 99 Oxygen Delivery Me thod OxyMask OxyMask Oxygen Flow Rate 8 8 07/25/22 16:00 07/25/22 16:15 07/25/22 16:30 Temperature 97.7 F 97.9 F 97.7 F Pulse Rate Pulse Rate [Left P ulse Oximeter] Pulse Rate [Right Pulse Oximeter] 79 86 86 Respiratory Rate 18 18 18 Blood Pressure Blood Pressure [Ri ght Arm] 147/78 H 137/84 116/64 Pulse Oximetry 99 92 91 Oxygen Delivery Me thod OxyMask Room Air CPAP Oxygen Flow Rate 8 2.5 07/25/22 16:45 07/25/22 17:00 07/25/22 17:30 Temperature 97.7 F 97.7 F 97.7 F Pulse Rate Pulse Rate [Left P ulse Oximeter] Pulse Rate [Right Pulse Oximeter] 73 85 76 Respiratory Rate 16 16 16 Blood Pressure Blood Pressure [Ri ght Arm] 114/64 119/66 121/63 Pulse Oximetry 88 91 92 Oxygen Delivery Me thod CPAP CPAP Room Air Oxygen Flow Rate 5 5 07/25/22 18:30 07/25/22 20:36 07/25/22 20:00 Temperature 97.7 F 97.6 F Pulse Rate Pulse Rate [Left P ulse Oximeter] Pulse Rate [Right Pulse Oximeter] 79 74 72 Respiratory Rate 16 20 Blood Pressure Blood Pressure [Ri ght Arm] 122/83 100/70 Pulse Oximetry 93 92 Oxygen Delivery Me thod Room Air Room Air Oxygen Flow Rate 07/25/22 21:00 07/25/22 21:30 07/25/22 23:00 Temperature 97.7 F 97.7 F 97.7 F Pulse Rate Pulse Rate [Left P ulse Oximeter] Pulse Rate [Right Pulse Oximeter] 74 79 79 Respiratory Rate 20 18 18 Blood Pressure Blood Pressure [Ri ght Arm] 139/81 110/70 110/70 Pulse Oximetry 93 94 92 Oxygen Delivery Me thod Room Air Room Air Room Air CPAP Oxygen Flow Rate 07/26/22 03:00 07/26/22 07:00 07/26/22 07:00 Temperature 97.7 F 98.3 F Pulse Rate Pulse Rate [Left P ulse Oximeter] 69 69 Pulse Rate [Right Pulse Oximeter] 69 Respiratory Rate 18 16 Blood Pressure Blood Pressure [[facility]] 129/75 151/80 H Pulse Oximetry 95 94 Oxygen Delivery Me thod Room Air Room Air Oxygen Flow Rate Labs Labs: Laboratory Results - last 24 hr 07/26/22 07/26/22 06:02 06:02 WBC 13.61 H RBC 4.70 Hgb 11.9 L Hct 37.7 MCV 80 MCH 25 L MCHC 32 Plt Count 247 Sodium 137 Potassium 3.7 BUN 19 Creatinine 1.3 Estimated Creat Clear 63.45 Estimated GFR 64
[2022-07-26] MEDS: SODIUM CHLORIDE 0.9 % (FLUSH) 10 ML SYRINGE 5 ML IVF ×2 (12:09→20:59)
--- NOTE | 2022-07-26 14:31 | PC.NURSE ---
End of shift: Patient is alert and oriented with at bedside. Vss and patient denied any pain throughout shift. SPO2 greater than 90% on room air. Dressing is clean, dry and intact with tingling in fingers, CMS otherwise WNL. Patient is SOB when ambulating and complains of throat tightening positionally. MD and RT notified and racemic epi given. Patient stated improvement. Crackles were noted at the left base of lung otherwise CTA. Patient had two BMs today.
[2022-07-26 15:00] VITALS: BP 134/65; PULSE 69; PULSE 72; RESP 18; TEMP 36.7; O2SAT 96
[2022-07-26] MEDS: dexAMETHasone 4 MG TABLET 10 MG PO (17:09)
[2022-07-26 19:00] VITALS: BP 131/65; PULSE 85; RESP 18; TEMP 36.7; O2SAT 92
--- NOTE | 2022-07-26 19:18 | PC.NURSE ---
End of shift-- Very pleasant and cooperative, alert and oriented patient. VSS and pt is afebrile. SPO2 maintained >90% on RA at rest. Occasionally pt's sats will drop to high 80s with exertion, but pt recovers quickly. Patient denied pain most of the shift today, but this afternoon states that block is wearing off and rated pain in his shoulder 4 out of 10 and was given Oxy with stated relief. Dressing to left shoulder is C/D/I and except for some tingling in his fingers, CMS is WNL. A few fine crackles auscultated in posterior left base this morning that had cleared by this afternoon. Pt continues to have an intermittent cough with occasional clear sputum. He c/o mild throat tightness when lying back, but has declined intervention at this time. He denied nausea and tolerated a regular diet today without any difficulty. He was up to the BR and ambulated in hallway independently today but did become mildly SOB with exertion. Report to AMANDA Velásquez.
--- NOTE | 2022-07-26 22:40 | PC.NURSE ---
End of Shift: Patient pleasant and cooperative. Afebrile. Rating pain in left shoulder up to 4/10 and PRN Oxycodone given x1. Dressing C/D/I. CMS intact. Up independently in room and walking in hallway. Tolerating regular diet with no nausea. C/o SOB with activity and positional, PRN neb x1. O2 sats greater than 90% on room air.
[2022-07-26 23:55] VITALS: BP 143/73; PULSE 78; RESP 18; TEMP 36.8; O2SAT 93
[2022-07-27] MEDS: ACETAMINOPHEN 500 MG TABLET 1000 MG PO ×2 (00:15→06:29)
[2022-07-27 03:00] VITALS: BP 125/85; PULSE 62; RESP 18; TEMP 36.3; O2SAT 96
[2022-07-27] MEDS: OXYCODONE 5 MG TABLET PO ×2 (03:05→09:09)
--- NOTE | 2022-07-27 05:14 | PC.NURSE ---
Shift note : Pt up ad teena in room, L arm in sling. CMS intact to L arm, fingers puffy, cryo cuff in place, drsg CDI. Pt still c/o scratchy throat, resting w/ CPAP, sats mid 90's, mild SOB w/ activity only. Plans to DC home w/ today.
[2022-07-27] MEDS: LEVOTHYROXINE 75 MCG TABLET PO (06:28)
[2022-07-27] MEDS: LEVOTHYROXINE 100 MCG TABLET PO (06:28)
[2022-07-27 06:48] LABS: Basophils Percent Auto 0.1 % (0.0-3.0); Hemoglobin* 11.5 gm/dL (13.5-17.5); Immature Granulocytes Pct Auto 0.1 %; Lymphocytes Percent Auto 10.8 % (20-44); Mean Corpuscular HGB Conc 31 gm/dL (32-36); Mean Corpuscular Hemoglobin 25 pg (26-34); Mean Corpuscular Volume 81 fL (80-100); Platelet Count* 247 K/uL (140-440); RDW Coefficient of Variation % 14.6 % (11.5-15.5); Red Blood Count 4.59 m/uL (4.30-5.90); White Blood Count* 11.72 K/uL (4.50-11.00)
[2022-07-27 06:49] LABS: Slide Review Reflex No
[2022-07-27 07:05] LABS: Chloride* 102 mmol/L (96-114); Potassium* 3.9 mmol/L (3.6-5.1); Sodium* 136 mmol/L (135-149)
[2022-07-27 07:08] LABS: Blood Urea Nitrogen* 21 mg/dL (7-30); Carbon Dioxide* 29 mmol/L (20-32); Creatinine* 1.2 mg/dL (0.5-1.5); Est. Creatinine Clearance* 68.74; Estimated Glomerular Filt Rate 71 ml/min; Glucose* 202 mg/dL (60-115)
[2022-07-27 07:09] LABS: Calcium* 8.9 mg/dL (8.4-10.6)
[2022-07-27 07:35] VITALS: BP 129/79; PULSE 63; RESP 20; TEMP 36.5; O2SAT 93
[2022-07-27 08:27] VITALS: O2SAT 93
--- NOTE | 2022-07-27 08:37 | P.ORPN_ITS ---
Subjective Subjective Date Seen: 07/27/22 Principal diagnosis: Status postop day 2 left anatomic total shoulder arthroplasty Interval history: Patient reports doing well, states feeling 99% better. Able to take 2 laps around the [facility] floor without shortness of breath. Denies any shortness of breath at rest, or audible breathing. No acute events over night. Pain managed with scheduled /PRN medications and ice. DVT prophylaxis bilateral knee high Preet stockings, and SCDs. Denies fevers, chills, aches, N/V, CP, SOB/THAKUR, tachycardia, tachypnea or lightheadedness. States he had a great night of sleep and is happy he was able to stay additional night. Ortho Exam Narrative Exam Narrative: Left Shoulder: -Patient appears comfortable in recliner; no apparent acute distress -Alert and oriented times 3 -Operative shoulder swollen; soft, supple tissues; no obvious erythema. Ecchymosis minimal. Warmth appropriate -Surgical dressing clean, dry, intact; no obvious drainage, no erythematous streaking peripheral to the bandage -Bilateral calves soft and supple; no significant swelling, edema, tenderness, erythema, discoloration, warmth, or palpable cords -2+ radial pulse, intact dermatomes and myotomes distally (5/5 strength). Specifically axillary nerve intact Pulmonary: -Normal rate and rhythm, symmetrical chest expansion -No obvious accessory muscle use during breathing Const Vital Signs, click to edit/add: Vital Signs - 24 hr 07/26/22 11:00 07/26/22 15:00 07/26/22 15:00 Temperature 98.2 F 98.0 F Pulse Rate [Apical] Pulse Rate [Left Pulse Oximeter] 83 72 Pulse Rate [Left Radial] Pulse Rate [Right Pulse Oximeter] 69 Respiratory Rate 20 18 18 Blood Pressure [Right Arm] 132/62 134/65 Pulse Oximetry 94 96 Oxygen Delivery Method Room Air Room Air 07/26/22 19:00 07/26/22 23:55 07/27/22 03:00 Temperature 98.0 F 98.2 F 97.4 F L Pulse Rate [Apical] Pulse Rate [Left Pulse Oximeter] 85 78 62 Pulse Rate [Left Radial] Pulse Rate [Right Pulse Oximeter] Respiratory Rate 18 18 18 Blood Pressure [Right Arm] 131/65 143/73 H 125/85 Pulse Oximetry 92 93 96 Oxygen Delivery Method Room Air Room Air CPAP 07/27/22 07:35 07/27/22 08:27 Temperature 97.7 F Pulse Rate [Apical] 63 Pulse Rate [Left Pulse Oximeter] 63 Pulse Rate [Left Radial] 63 Pulse Rate [Right Pulse Oximeter] Respiratory Rate 20 Blood Pressure [Right Arm] 129/79 Pulse Oximetry 93 93 Oxygen Delivery Method Room Air Room Air Assessment and Plan Assessment and plan (1) Status post total replacement of left shoulder: Problem details: - POD 2 left anatomic TSA and open biceps tenodesis (07/25/2022, Dr. Murillo) Status: Acute (2) Airway obstruction, anatomic: Problem details: - patient with difficulty breathing and stridor in the PACU on 07/25, responded well to racemic epinephrine - no acute findings on imaging of neck, left-sided atelectasis on chest x-ray - RT following Status: Acute (3) Obstructive sleep apnea: Problem details: - on CPAP Status: Acute (4) Obesity, morbid, BMI 40.0-49.9: Problem details: - BMI 45.6 Status: Acute (5) Essential (primary) hypertension: Problem details: - on Losartan and HCTZ Status: Acute (6) Polycythemia: Problem details: - Followed by hematology/oncology. Likely iatrogenic from testosterone use Status: Acute (7) Papillary thyroid carcinoma: Problem details: - Dx 11/2016, s/p total thyroidectomy followed by HUITRON Status: Acute Plan - Complete 23 hour perioperative antibiotics. - PT/OT consult for education and assistance. - Social work consult for discharge planning - Prescribed analgesics as needed - DVT prophylaxis: bilateral knee high Preet Hose stockings and SCDs - He will discharge to home with his today, 07/27/2022 since he is now medically stable from a breathing standpoint, pain is controlled, and they are safe with mobilization.
--- NOTE | 2022-07-27 08:50 | PM.DS1 ---
DS: Providers Provider Date Seen: 07/27/22 Date of admission: 07/25/22 16:11 Primary care physician: Oliver Lilly MD Admitting Clinician: Thom Pablo MD Consults: 07/25/22 16:11 Consult to Occupational Therapy [CONS] Routine Comment: Reason(s) for OT Consult:: Evaluate and Treat Any Restrictions?:: See Comment Comment: ROM elbow, forearm, wrist, digits PRN Shoulder pendulums okay No active shoulder ROM Consult to Physical Therapy [CONS] Routine Comment: Reason(s) for PT Consult:: Evaluate and Treat Any Restrictions?:: No Restrictions Consult to Physician [CONS] Routine Comment: Consulting Provider: Hospitalists Has provider been notified: No Consult to Pigment Making Supervisor [CONS] Routine Comment: Reason for Consult:: Discharge Planning Needs Attending Physician on discharge: Favian Murillo MD Date of Discharge: 07/27/22 DS: Diagnosis Discharge Diagnosis (1) Status post total replacement of left shoulder: Status: Acute Problem details: - POD 2 left anatomic TSA and open biceps tenodesis (07/25/2022, Dr. Murillo) (2) Airway obstruction, anatomic: Status: Acute Problem details: - patient with difficulty breathing and stridor in the PACU on 07/25, responded well to racemic epinephrine - no acute findings on imaging of neck, left-sided atelectasis on chest x-ray - RT following - he improved well with his breathing, no longer complaining of shortness of breath with ambulation or at rest, and feels 99% better DS: Summary Hospital Course Hospital Course: The patient has a history of left shoulder osteoarthritis, primary, severe. After appropriate preoperative evaluation, the patient underwent left total shoulder arthroplasty and long head biceps tenodesis. Postoperatively, he stayed an additional night due to SOB/THAKUR, which resolved by postop day 2. He then progressed to PT/OT and were felt ready and prepared for discharge to home with appropriate pain medication and anticoagulation medications. Status at Discharge Functional status at discharge: independent ambulation Overall status at discharge: patient is progressing back to baseline Time Spent with Patient Time attestation: Total time spent providing and/or coordinating discharge services: Time spent: Less than 30 minutes Exam Const: Vital Signs, click to edit/add: Vital Signs - 24 hr 07/26/22 11:00 07/26/22 15:00 07/26/22 15:00 Temperature 98.2 F 98.0 F Pulse Rate [Apical ] Pulse Rate [Left P ulse Oximeter] 83 72 Pulse Rate [Left R adial] Pulse Rate [Right Pulse Oximeter] 69 Respiratory Rate 20 18 18 Blood Pressure [Ri ght Arm] 132/62 134/65 Pulse Oximetry 94 96 Oxygen Delivery Me thod Room Air Room Air 07/26/22 19:00 07/26/22 23:55 07/27/22 03:00 Temperature 98.0 F 98.2 F 97.4 F L Pulse Rate [Apical ] Pulse Rate [Left P ulse Oximeter] 85 78 62 Pulse Rate [Left R adial] Pulse Rate [Right Pulse Oximeter] Respiratory Rate 18 18 18 Blood Pressure [Ri ght Arm] 131/65 143/73 H 125/85 Pulse Oximetry 92 93 96 Oxygen Delivery Me thod Room Air Room Air CPAP 07/27/22 07:35 07/27/22 08:27 Temperature 97.7 F Pulse Rate [Apical ] 63 Pulse Rate [Left P ulse Oximeter] 63 Pulse Rate [Left R adial] 63 Pulse Rate [Right Pulse Oximeter] Respiratory Rate 20 Blood Pressure [Ri ght Arm] 129/79 Pulse Oximetry 93 93 Oxygen Delivery Me thod Room Air Room Air DS: Data Data Completed and Pending Completed studies during hospitalization: Procedures Bypass Ileum to Cutaneous, Open Approach (12/12/21) Reposition Ileum, Open Approach (04/12/22) Resection of Sigmoid Colon, Open Approach (12/12/21) Labs on day of discharge: Labs from last 24 hours 07/27/22 07/27/22 06:35 06:35 WBC 11.72 H RBC 4.59 Hgb 11.5 L Hct 37.0 MCV 81 MCH 25 L MCHC 31 L RDW Coeff of Charmaine 14.6 Plt Count 247 Neut % (Auto) 83.0 H Lymph % (Auto) 10.8 L [place] % (Auto) 6.0 Eos % (Auto) 0.0 Baso % (Auto) 0.1 Neut # (Auto) 9.70 H Lymph # (Auto) 1.30 [place] # (Auto) 0.70 Eos # (Auto) 0.00 Baso # (Auto) 0.00 Sodium 136 Potassium 3.9 Chloride 102 Carbon Dioxide 29 BUN 21 Creatinine 1.2 Estimated Creat Clear 68.74 Estimated GFR 71 Glucose 202 H Calcium 8.9 Discharge Plan Discharge Disposition: Home, Self-Care Date of Admission: 07/25/22 16:11 Attending Provider on Discharge: Yani Garcia Consulting Providers: Justin Downing ; Yani Garcia ; Brandyn Carney ; Physician,[place] ; Anthony Stinson ; Dominic Ramírez ; Joi Cho ; Mike Dumont ; Miguelina Jones ; Kirsten Freeman ; Yamile June ; Thom Pablo ; Colin Farias ; Isabel Luu ; Nikunj Luna ; Socrates Hein ; Marcie Cortez ; Barrington Saleh ; Akhil Wolf ; Leidy Toro ; Brie Krishnan ; Mariana Anderson ; Manasa Jackson ; Oz Yang ; Oliver Lilly ; Rei Alonzo ; Margaret Macias ; Avril Geronimo ; Chinedu Ahumada Primary Care Provider: Oliver Lilly Condition: Improved Anticipated Discharge Date/Time: 07/27/22 09:00 Discharge Medications: New scopolamine base [Transderm-Scop] 1 mg over 3 days Patch 3 Day 1 patch transdermal Q72H PRN (Reason: nausea and vomiting) Qty: 4 0RF oxycodone 5 mg Tablet 5 mg PO Q6H PRN (Reason: Pain) Qty: 10 0RF sennosides-docusate sodium [Senna-S] 8.6-50 mg tablet 1 - 4 tab-cap PO BID PRN (Reason: constipation) Qty: 60 0RF Rx Instructions: Hold medication if experiencing loose stools. acetaminophen 500 mg capsule 500 - 1,000 mg PO Q6H MDD 4000mg PRNQty: 100 0RF oxycodone 5 mg tablet 2.5 - 5 mg PO Q4-6H MDD 6 PRN (Reason: pain) Qty: 30 0RF Rx Instructions: Take as needed for postop pain: 2.5mg mild pain, 5mg moderate-severe pain; wean as tolerated. Continued hydrochlorothiazide 25 mg tablet 25 mg PO DAILY cholecalciferol (vitamin D3) 125 mcg (5,000 unit) capsule 125 mcg PO DAILY naproxen sodium [Aleve] 220 mg capsule 440 mg PO DAILY Hold Instructions: Hold until postsurgical follow-up appointment complete testosterone cypionate 200 mg/mL oil 100 mg IM Q14D Label Comments: INJECT 1/2 ML EVERY 2 WEEKS Lactobacillus acidophilus 0.5 mg (100 million cell) Tablet 1 tab PO TIDWM Qty: 90 0RF levothyroxine 175 mcg tablet 175 mcg PO DAILY losartan 50 mg tablet 50 mg PO DAILY Qty: 90 2RF Discharge Orders: Discharge Order (Routine); Ordered 07/27/22 Ordered By: Yani Garcia Patient Education: Joint Replacement Surgery (DC) Additional Instructions: I sent in a short course of Pain medications - call Dr. Sevilla's office if you need more after the next couple of days at home. Activity Level: Activity as Tolerated, No Weight Bearing and Wear Brace Activity Detail: Wear sling at all times unless performing elbow range of motion or when showering. No weight-bearing left upper extremity Wound: ?Do not remove original dressing; we will remove this at first postop visit in 1 week. Only remove dressing if integrity is in question. ?No immersing wound in water; showering okay; light scrub with your hand and body soap, rinse, dab dry ?Sutures are under the skin, will dissolve; allow surgical glue to come off naturally; do not scrub the wound or apply ointments/lotions ?Call our office with any redness that streaks, excessive drainage from the wound, or wound gapping. Ice/Elevate: ?Ice as needed for swelling and discomfort (cryocuff); elevate hand/forearm about heart if possible PHYLLIS socks: ?Wear for 1 month, remove for 1 hour 3 times per day ?These are frustrating to take on/off, but are important for blood clot prevention for 1 month after surgery even though this was an upper extremity surgery. Driving: ?Do not drive while taking narcotic pain medication ?Anticipate a few weeks of no driving if you feel uncomfortable driving with one arm Dental: ?No elective dental work for 6 months post-op. If there is an urgent/emergent dental need, contact our office for an antibiotic prescription. Smoking/Alcohol: ?Do not smoke; do no drink alcohol especially when taking postoperative oral narcotic medication Seek Care from you Primary Care Provider if you experience the following issues in the postoperative phase and beyond: ?Bacterial infections such as: pneumonia, bacterial skin infection (cellulitis), UTI, high fever, chills unrelated to the operative body part - call your primary care physician urgently for treatment in hopes to protect your health and the metal implant. Referrals: ?PT, OT per patient preference - evaluate treat [reverse/anatomic] total shoulder arthroplasty protocol (ROM, ADLs) Follow up: ?Ortho surgeon follow-up in 6 weeks; repeat radiographs three views operative shoulder ?PA-C visit in 1 week *If there are any acute concerns regarding your surgery, please call our orthopedic clinic ([phone]) Discharge Diet: Regular Follow Up Appointments: Oliver Lilly MD [Primary Care Provider] - (routine f/u with Dr. Lilly and the Ortho group) Nikunj Lindquist PA-C [Physician Mobile Sales Technician] - 08/02/22 8:30 am Forms: [employer] Info Instructions
[2022-07-27 08:56] VITALS: BP 145/84; PULSE 77; RESP 20; TEMP 36.5
[2022-07-27] MEDS: hydroCHLOROthiazide 25 MG TABLET PO (09:10)
[2022-07-27] MEDS: LOSARTAN POTASSIUM 50 MG TABLET PO (09:10)
[2022-07-27] MEDS: SENNOSIDES 1 TAB TABLET 2 TAB PO (09:10)
[2022-07-27] MEDS: LACTOBACILLUS ACIDOPHILUS 1 TABLET 2 TAB PO (09:11)
--- NOTE | 2022-07-27 10:26 | PC.NURSE ---
Pt up ad teena in room and hallway with LUE sling in place. Please see eMar for medications provided. Pt rating his pain 2 out of 10. IV site d/c'ed. ADLS performed with Ruby from OT. Oxycodone 10 mg prn for pain and premed for planned d/c. Pt verbalized understanding of d/c diagnosis, home meds, pain management plan, f/up appt and sx to report urgently to physician. Pt discharged via w/c to own home @ 1018 am with his personal belongings, CPAP, cryocuff and Lorna as transportation.
--- NOTE | 2022-07-27 10:51 | PC.SOCIAL ---
Discharge: Met with patient, Shad and spouse. Patient is well prepared to come. Supplied with [employer] print out and social work numbers for any needs.
--- NOTE | 2022-07-27 13:28 | PM.DS1 ---
DS: Providers Provider Date Seen: 07/27/22 Date of admission: 07/25/22 16:11 Primary care physician: Oliver Lilly MD Admitting Clinician: Thom Pablo MD Attending Physician on discharge: Favian Murillo MD Date of Discharge: 07/27/22 DS: Diagnosis Discharge Diagnosis (1) Status post total replacement of left shoulder: Status: Acute Problem details: - POD 2 left anatomic TSA and open biceps tenodesis (07/25/2022, Dr. Murillo) (2) Airway obstruction, anatomic: Status: Acute Problem details: - patient with difficulty breathing and stridor in the PACU on 07/25, responded well to racemic epinephrine and 1 time dose of Decadron - no acute findings on imaging of neck, left-sided atelectasis on chest x-ray 07/26 - RT followed during stay DS: Summary Hospital Course Hospital Course: 57-year-old male, admitted to the hospital for left total shoulder with Dr. Murillo of Orthopedic Surgery on 07/25. Postoperatively, patient noted to be stridorous in the PACU. He tolerated racemic epinephrine well as a treatment, in addition to Decadron orally x1. He was monitored for 24 hours postoperatively given severity of symptoms, and felt 99% better and ready for discharge home on 07/27. He continued his home CPAP overnight while inpatient, comorbidities remained stable. Status at Discharge Functional status at discharge: independent ambulation Time Spent with Patient Time attestation: Total time spent providing and/or coordinating discharge services: Time spent: Greater than 30 minutes Specific discharge activities: Medication reconciliation, chart review, discussion of plan of care with multidisciplinary team and specialty team Exam Narrative: Exam Narrative: GEN: Alert and oriented, speaking in full sentences. Voice is normal HEENT: Full range of motion of neck, no crepitus, EOMIs bilaterally, no scleral icterus CV: RRR, No concerning murmurs, rubs, or gallops R: LCTA bilaterally without concerning wheezing, air movement adequate Ext: wwp, no concerning edema, wearing shoulder immobilizer on left Skin: No concerning skin lesions or rashes on exposed skin Neuro: Nonfocal Psych: Appropriate Const: Vital Signs, click to edit/add: Vital Signs - 24 hr 07/26/22 15:00 07/26/22 15:00 07/26/22 19:00 Temperature 98.0 F 98.0 F Pulse Rate Pulse Rate [Apical ] Pulse Rate [Left P ulse Oximeter] 72 85 Pulse Rate [Left R adial] Pulse Rate [Right Pulse Oximeter] 69 Respiratory Rate 18 18 18 Blood Pressure Blood Pressure [Ri ght Arm] 134/65 131/65 Pulse Oximetry 96 92 Oxygen Delivery Me thod Room Air Room Air 07/26/22 23:55 07/27/22 03:00 07/27/22 07:35 Temperature 98.2 F 97.4 F L 97.7 F Pulse Rate Pulse Rate [Apical ] 63 Pulse Rate [Left P ulse Oximeter] 78 62 63 Pulse Rate [Left R adial] 63 Pulse Rate [Right Pulse Oximeter] Respiratory Rate 18 18 20 Blood Pressure Blood Pressure [Ri ght Arm] 143/73 H 125/85 129/79 Pulse Oximetry 93 96 93 Oxygen Delivery Me thod Room Air CPAP Room Air 07/27/22 08:27 07/27/22 08:56 Temperature 97.7 F Pulse Rate 77 Pulse Rate [Apical ] Pulse Rate [Left P ulse Oximeter] Pulse Rate [Left R adial] Pulse Rate [Right Pulse Oximeter] Respiratory Rate 20 Blood Pressure 145/84 H Blood Pressure [Ri ght Arm] Pulse Oximetry 93 Oxygen Delivery Me thod Room Air DS: Data Data Completed and Pending Completed studies during hospitalization: Procedures Bypass Ileum to Cutaneous, Open Approach (12/12/21) Reposition Ileum, Open Approach (04/12/22) Resection of Sigmoid Colon, Open Approach (12/12/21) Labs on day of discharge: Labs from last 24 hours 07/27/22 07/27/22 06:35 06:35 WBC 11.72 H RBC 4.59 Hgb 11.5 L Hct 37.0 MCV 81 MCH 25 L MCHC 31 L RDW Coeff of Charmaine 14.6 Plt Count 247 Neut % (Auto) 83.0 H Lymph % (Auto) 10.8 L [place] % (Auto) 6.0 Eos % (Auto) 0.0 Baso % (Auto) 0.1 Neut # (Auto) 9.70 H Lymph # (Auto) 1.30 [place]sworth # (Auto) 0.70 Eos # (Auto) 0.00 Baso # (Auto) 0.00 Sodium 136 Potassium 3.9 Chloride 102 Carbon Dioxide 29 BUN 21 Creatinine 1.2 Estimated Creat Clear 68.74 Estimated GFR 71 Glucose 202 H Calcium 8.9 Discharge Plan Discharge Disposition: Home, Self-Care Date of Admission: 07/25/22 16:11 Attending Provider on Discharge: Yani Garcia Consulting Providers: Justin Downing ; Yani Garcia ; Brandyn Carney ; Physician,[place] ; Anthony Stinson ; Dominic Ramírez ; Joi Cho ; Mike Dumont ; Miguelina Jones ; Kirsten Freeman ; Yamile June ; Thom Pablo ; Colin Farias ; Isabel Luu ; Nikunj Luna ; Socrates Hein ; Marcie Cortez ; Barrington Saleh ; Akhil Wolf ; Leidy Toro R ; Brie Krishnan ; Mariana Anderson ; Manasa Jackson ; Oz Yang ; Oliver Lilly ; Rei Alonzo ; Margaret Macias ; Avril Geronimo ; Chinedu Ahumada Primary Care Provider: Oliver Lilly Condition: Improved Anticipated Discharge Date/Time: 07/27/22 09:00 Discharge Medications: New scopolamine base [Transderm-Scop] 1 mg over 3 days Patch 3 Day 1 patch transdermal Q72H PRN (Reason: nausea and vomiting) Qty: 4 0RF oxycodone 5 mg Tablet 5 mg PO Q6H PRN (Reason: Pain) Qty: 10 0RF sennosides-docusate sodium [Senna-S] 8.6-50 mg tablet 1 - 4 tab-cap PO BID PRN (Reason: constipation) Qty: 60 0RF Rx Instructions: Hold medication if experiencing loose stools. acetaminophen 500 mg capsule 500 - 1,000 mg PO Q6H MDD 4000mg PRNQty: 100 0RF oxycodone 5 mg tablet 2.5 - 5 mg PO Q4-6H MDD 6 PRN (Reason: pain) Qty: 30 0RF Rx Instructions: Take as needed for postop pain: 2.5mg mild pain, 5mg moderate-severe pain; wean as tolerated. Continued hydrochlorothiazide 25 mg tablet 25 mg PO DAILY cholecalciferol (vitamin D3) 125 mcg (5,000 unit) capsule 125 mcg PO DAILY naproxen sodium [Aleve] 220 mg capsule 440 mg PO DAILY Hold Instructions: Hold until postsurgical follow-up appointment complete testosterone cypionate 200 mg/mL oil 100 mg IM Q14D Label Comments: INJECT 1/2 ML EVERY 2 WEEKS Lactobacillus acidophilus 0.5 mg (100 million cell) Tablet 1 tab PO TIDWM Qty: 90 0RF levothyroxine 175 mcg tablet 175 mcg PO DAILY losartan 50 mg tablet 50 mg PO DAILY Qty: 90 2RF Discharge Orders: Discharge Order (Routine); Ordered 07/27/22 Ordered By: Yani Garcia Patient Education: Scopolamine (Absorbed through the skin) (Transderm Scop), Acetaminophen (By mouth), Oxycodone, Rapid Release (By mouth), Senna (By mouth) (Sen, Senna-lax), Joint Replacement Surgery (DC) Additional Instructions: I sent in a short course of Pain medications - call Dr. Sevilla's office if you need more after the next couple of days at home. Activity Level: Activity as Tolerated, No Weight Bearing and Wear Brace Activity Detail: Wear sling at all times unless performing elbow range of motion or when showering. No weight-bearing left upper extremity Wound: ?Do not remove original dressing; we will remove this at first postop visit in 1 week. Only remove dressing if integrity is in question. ?No immersing wound in water; showering okay; light scrub with your hand and body soap, rinse, dab dry ?Sutures are under the skin, will dissolve; allow surgical glue to come off naturally; do not scrub the wound or apply ointments/lotions ?Call our office with any redness that streaks, excessive drainage from the wound, or wound gapping. Ice/Elevate: ?Ice as needed for swelling and discomfort (cryocuff); elevate hand/forearm about heart if possible PHYLLIS socks: ?Wear for 1 month, remove for 1 hour 3 times per day ?These are frustrating to take on/off, but are important for blood clot prevention for 1 month after surgery even though this was an upper extremity surgery. Driving: ?Do not drive while taking narcotic pain medication ?Anticipate a few weeks of no driving if you feel uncomfortable driving with one arm Dental: ?No elective dental work for 6 months post-op. If there is an urgent/emergent dental need, contact our office for an antibiotic prescription. Smoking/Alcohol: ?Do not smoke; do no drink alcohol especially when taking postoperative oral narcotic medication Seek Care from you Primary Care Provider if you experience the following issues in the postoperative phase and beyond: ?Bacterial infections such as: pneumonia, bacterial skin infection (cellulitis), UTI, high fever, chills unrelated to the operative body part - call your primary care physician urgently for treatment in hopes to protect your health and the metal implant. Referrals: ?PT, OT per patient preference - evaluate treat [reverse/anatomic] total shoulder arthroplasty protocol (ROM, ADLs) Follow up: ?Ortho surgeon follow-up in 6 weeks; repeat radiographs three views operative shoulder ?[facility] visit in 1 week *If there are any acute concerns regarding your surgery, please call our orthopedic clinic ([phone]) Discharge Diet: Regular Follow Up Appointments: Oliver Lilly MD [Primary Care Provider] - (routine f/u with Dr. Lilly and the Ortho group) Nikunj Lindquist PA-C [Physician [employer]] - 08/02/22 8:30 am Forms: [employer] Info Instructions
== END 2022-07-27 10:18 | disposition home or self-care (01) | DRG 483 ==
LOC: MEDSURG 07-26 11:25
PROVIDERS: Family Medicine; Admitting Provider Internal Medicine; PCP Internal Medicine; Visit Provider Orthopaedic Surgery Sports Medicine
PROC: 0RRJ0JZ Replacement of Right Shoulder Joint with Synthetic Substitute, Open Approach (ICD-10-PCS; CPT 23472; principal; 2022-07-25 10:15)
DX: M19.012 Primary osteoarthritis, left shoulder (principal); Z68.42 Body mass index [BMI] 45.0-49.9, adult; J98.11 Atelectasis; M75.22 Bicipital tendinitis, left shoulder; M65.812 Other synovitis and tenosynovitis, left shoulder; T88.4XXA Failed or difficult intubation, initial encounter; R06.1 Stridor; R06.02 Shortness of breath; G47.33 Obstructive sleep apnea (adult) (pediatric); J98.8 Other specified respiratory disorders; Z99.89 Dependence on other enabling machines and devices; E66.01 Morbid (severe) obesity due to excess calories; I10 Essential (primary) hypertension; D75.1 Secondary polycythemia; Z90.79 Acquired absence of other genital organ(s); E89.0 Postprocedural hypothyroidism; Q63.1 Lobulated, fused and horseshoe kidney; Z96.653 Presence of artificial knee joint, bilateral; Z96.612 Presence of left artificial shoulder joint; C62.92 Malignant neoplasm of left testis, unspecified whether descended or undescended; C73 Malignant neoplasm of thyroid gland
CPT/HCPCS: 01630; 36415; 70360; 71046; 73030; 76942; 80048; 82565; 84132; 84295; 84520; 85025; 85027; 94640; 97110; 97116; 97161; 97165; 97535; A9270; C1713; C1776; J0330; J0690; J1100; J2250; J2405; J2704; J2795; J3010; J3490; J7120

== ENCOUNTER 2022-10-04 10:30 | Outpatient (RCR) | payer OTHER, SELFPAY ==
--- NOTE | 2022-08-08 09:59 | PT.OPEX ---
[facility] [place] Outpatient Eval PT [facility] Outpatient Eval Start: 08/08/22 08:58 Freq: Status: Active Protocol: Document 08/08/22 08:59 LEX (Rec: 08/08/22 09:06 LEX [id number]) E-signed By Evonne Campa DPT Physical Therapy Outpatient Evaluation Insurance Information Recert Due Date 11/06/22 Insurance Name Medicaid Medical Diagnosis s/p L TSA 07/25/22 hx L shoulder OA Treating Diagnosis s/p L TSA 07/25/22 with L shoulder pain, impaired L shoulder ROM, impaired L shoulder/UE mobility/strength, currently restricted with L UE sling, impaired functional use of L shoulder/UE. Subjective Subjective Patient reports chronic L shoulder pain leading up to L TSA 07/25/22. He denies any injury, trauma but wear and tear over the years with L shoulder OA. He has been wearing his L shoulder sling when up and moving. He is removing the sling while at rest. Performing elbow, wrist , hand exercises and L shoulder codmans at home. HEP is going fine. Pain has been tolerable, not needing pain meds during the day. Using tylenol PM to help with sleep. He is sleeping in the recliner chair but it is interrupted. Pain rated 1/10. He is icing as needed but hasn't been needing it much the last several days. Patient is R handed. Date of Surgery (If applicable) 07/25/22 Current Work Status Retired Assessment Assessment/Impression Patient is a 57 year old male s/p L TSA 07/25/22 with L shoulder pain, impaired L shoulder ROM, impaired L shoulder/UE mobility/strength, currently restricted with L UE sling, impaired functional use of L shoulder/UE. Pain rated 1/10. Reports pain has been tolerable, not needing pain meds during the day. Only using tylenol PM before bed to help with sleep. He is sleeping in the recliner chair. Patient has follow up with [facility] and surgical dressing were removed. Incisions are clean, dry, healing. Per [facility] note, PT for L shoulder PROM to start, ok for AAROM at 4-6 weeks. Patient has f/u with MD at 6 weeks po. L shoulder PROM: flex 90 degrees, scap 65 degrees, IR 50 degrees, ER lacking from neutral position by 10 degrees. PROM limited by tightness, pain, guarding. Patient would benefit from skilled PT for pain/sx management, improved L shoulder ROM, improved L shoulder/UE mobility/strength, return to functional use of L shoulder/UE, and establishment of HEP. Plan of Care Rehabilitation Potential Good Physical Therapy Goals 1. Decrease L shoulder pain to less than/equal to 3/10 with daily activities and with the progression of PT activities over the next 8-10 weeks. 2. Improve L shoulder PROM to WFL within 4-6 weeks to prepare for return to functional use of L shoulder/UE. 3. Improve L shoulder AROM to WFL within 10-12 weeks for return to functional use of L shoulder/ UE with daily/work activities. 4. Improve L shoulder/UE strength over the next 12-16 weeks for return to full functional use of L shoulder/UE with daily/ work activities. 5. Patient will be I with HEP within 16 weeks for progression toward above goals, ongoing self management of pain/sx, ongoing self improvements in ROM/strength/function, and for return to full functional use of L shoulder/UE with daily activities. Coordination/Communication With Referral Source Treatment Plan/Direct Interventions Manual Therapy,Therapeutic Exercises Frequency/Duration 2x/week Patient Will Be Discharged From Therapy Completion of LTG(s),Skills Plateau,Independent w/HEP, Independently Progressing Evaluation Billing Untimed Code Treatment Minutes 18 Complexity Moderate Certification Information Initial Certification Date 08/08/22 Ending Certification Date 11/06/22 Provider Signature Shows Agreement With POC & Medical Necessity Physician Signature & Date Requested Please Sign/Date Here Physician Comment/Change : Physician NPI Number #
== END 2022-12-28 14:39 | disposition home or self-care (01) ==
PROVIDERS: PCP Internal Medicine; Visit Provider Orthopaedic Surgery Sports Medicine
DX: M19.012 Primary osteoarthritis, left shoulder (principal); Z51.89 Encounter for other specified aftercare
CPT/HCPCS: 97110; 97162; 97165

== ENCOUNTER 2023-01-15 12:36 | Outpatient (RCR) | payer OTHER, SELFPAY | END 2023-05-15 23:59 | disposition home or self-care (01) | PROVIDERS: PCP Internal Medicine; Visit Provider Internal Medicine | DX: M54.9 Dorsalgia, unspecified (principal); M51.26 Other intervertebral disc displacement, lumbar region; M25.551 Pain in right hip; Z51.89 Encounter for other specified aftercare | CPT/HCPCS: 97110; 97140; 97162 ==

== ENCOUNTER 2023-01-21 07:29 | Outpatient (CLI) | payer OTHER, SELFPAY ==
--- NOTE | 2023-01-21 08:00 | CRLHL7_ITS ---
For Patients: As a result of the Century Cures Act, medical imaging exams and procedure reports are released immediately into your electronic medical record. You may view this report before your referring provider. If you have questions, please contact your health care provider. Indication: MASS, LUMP UNDER RT Axilla Technique: Post contrast CT chest. 148 cc Isovue 370 intravenous contrast. Please note that all CT scans at this facility use dose modulation, iterative reconstruction, and/or weight-based dosing when appropriate to reduce radiation dose to as low as reasonably achievable. Comparison: 10/18/2022 Findings: Within the visualized axilla, there is no solid mass, fluid collection or adenopathy. However, the entirety of the axilla is not included on the exam. The musculature about the thorax appears normal. Mild degenerative changes at the right shoulder noted with subchondral cystic change. Left shoulder replacement hardware is present. There is no destructive osseous lesion. Multilevel degenerative disc disease is present throughout the thoracic spine. 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 Retroesophageal course of the right subclavian artery. No enlarged mediastinal or hilar lymph nodes. Calcified granulomas in the spleen. Fatty liver. Cortical atrophy involving the visualized left kidney. Calcified left hilar lymph nodes and calcified left paraesophageal lymph node related to prior granulomatous disease. Benign calcified left lower lobe pulmonary nodule. No suspicious pulmonary nodule. No infiltrate or edema. No effusion or pneumothorax. Impression: No adenopathy or soft tissue mass within the thorax. However, the entirety of the right axillary region was not included on this study. Targeted right axillary ultrasound is recommended to complete the workup. Sequela of granulomatous disease. No suspicious pulmonary nodule. Hepatic steatosis. Please note that all CT scans at this facility use dose modulation, iterative reconstruction, and/or weight-based dosing when appropriate to reduce radiation dose to as low as reasonably achievable. Dictated by Gomez Byrnes MD @ 01/21/2023 10:13:44 AM (Electronically Signed)
== END 2023-01-21 07:30 | disposition home or self-care (01) ==
LOC: CT 07:30
PROVIDERS: PCP Internal Medicine; Visit Provider Internal Medicine
DX: R22.30 Localized swelling, mass and lump, unspecified upper limb (principal); K76.0 Fatty (change of) liver, not elsewhere classified
CPT/HCPCS: 71260; Q9967

== ENCOUNTER 2023-02-12 09:59 | Outpatient (CLI) | payer OTHER, SELFPAY ==
--- NOTE | 2023-02-12 10:15 | CRLHL7_ITS ---
For Patients: As a result of the Century Cures Act, medical imaging exams and procedure reports are released immediately into your electronic medical record. You may view this report before your referring provider. If you have questions, please contact your health care provider. Indication: Right axillary lump Technique: Grayscale ultrasound of the right axilla performed. Comparison: CT chest 01/21/2023 Findings: Normal subcutaneous tissues. No adenopathy or mass. No fluid collection. Impression: Normal ultrasound. No evidence of adenopathy. Dictated by Gomez Byrnes MD @ 02/12/2023 11:00:37 AM (Electronically Signed)
== END 2023-02-12 10:00 | disposition home or self-care (01) ==
LOC: US 10:00
PROVIDERS: PCP Internal Medicine; Visit Provider Internal Medicine
DX: R22.30 Localized swelling, mass and lump, unspecified upper limb (principal)
CPT/HCPCS: 76882

== ENCOUNTER 2023-03-08 11:07 | Outpatient (CLI) | payer OTHER, SELFPAY | END 2023-03-08 11:08 | disposition home or self-care (01) | LOC: NFLDREF 03-12 11:59 | PROVIDERS: PCP Internal Medicine; Referring Provider Internal Medicine; Visit Provider Physician Assistant | DX: R35.0 Frequency of micturition (principal); N39.0 Urinary tract infection, site not specified | CPT/HCPCS: 87086; 87186 ==

== ENCOUNTER 2023-04-03 12:08 | Outpatient (CLI) | payer OTHER, SELFPAY | END 2023-04-03 12:09 | disposition home or self-care (01) | LOC: NFLDREF 12:09 | PROVIDERS: PCP Internal Medicine; Visit Provider Family Medicine | DX: N39.0 Urinary tract infection, site not specified (principal) | CPT/HCPCS: 87086; 87186 ==

== ENCOUNTER 2023-05-07 14:39 | Outpatient (CLI) | payer OTHER, SELFPAY | END 2023-05-07 14:40 | disposition home or self-care (01) | LOC: NFLDREF 05-09 10:49 | PROVIDERS: PCP Internal Medicine; Referring Provider Internal Medicine; Visit Provider Internal Medicine | DX: R35.0 Frequency of micturition (principal); N39.0 Urinary tract infection, site not specified | CPT/HCPCS: 87086; 87186 ==

== ENCOUNTER 2023-05-21 09:33 | Outpatient (CLI) | payer OTHER, SELFPAY | END 2023-05-21 09:34 | disposition home or self-care (01) | LOC: NFLDREF 05-22 06:01 | PROVIDERS: PCP Internal Medicine; Referring Provider Internal Medicine; Visit Provider Internal Medicine | DX: N39.0 Urinary tract infection, site not specified (principal) | CPT/HCPCS: 87086 ==

== ENCOUNTER 2023-05-29 15:55 | Outpatient (CLI) | payer OTHER, SELFPAY ==
--- OUTSIDE RECORDS SUMMARY | 2023-06-05 15:27 | XMS_ITS | Clinical Summary ---
Author Name Unknown Organization [facility] Address [place], [place] [address] Care Team Providers Care Zipper Trimmer Name Role Phone Oliver Lilly MD Primary Care Provider Josh Salamanca MD Unavailable [phone] Allergies Active Allergy Reactions Criticality Noted Date Comments Lisinopril Other - Describe In Comment Field cough Medications Medication Sig Dispensed Refills Start Date End Date Status cholecalciferol, Vitamin D3, 5,000 unit tab tablet Take 1 tablet by mouth once daily. 0 06/05/2017 Active losartan (COZAAR) 50 mg tablet Take 50 mg by mouth once daily. 0 08/17/2021 Active hydroCHLOROthiazi de (HCTZ) 25 mg tablet Take 25 mg by mouth once daily. 0 08/14/2021 Active Safety [place] (BD SafetyGlide Needle) 22 gauge x 1 1/2 ndleIndications:H ypogonadism in male As directed. Use to administer testosterone every 2 weeks 6 Each 3 06/27/2022 Active Syringe with Needle, Disp, 3 mL 18 x 1 1/2 syrgIndications:H ypogonadism in male As directed. use to draw up testosterone from the vial every 2 weeks 6 Each 3 06/27/2022 Active naproxen (Aleve) 220 mg tablet Take 1 Tablet (220 mg) by mouth every 12 hours if needed for Pain. 0 09/24/2022 Active ferrous sulfate 325 mg delayed release tabletIndications :Low iron Take 1 Tablet (325 mg) by mouth once daily. 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 Phil Dunaway at [facility]. ?? Pathology showed a papillary carcinoma, 3.6 cm with focal extrathyroidal soft tissue extension ??tumor focally involves surgical margin on one section No lymph nodes identified, no parathyroid glands identified Staging ??PT3Nx ??stage III?MACIS score 5.2 ?? HUITRON : 30.6 millicuries of I 131 on 03/28/17 04/01/17 post therapy scan: 1. There is a focal area of uptake noted in the right thyroid bed in the neck. 2. There is no evidence of distant metastatic disease outside the neck ?? labs: 05/31/17 ??TSH of 8.3, free T4 0.9, thyroglobulin 0.1, thyroglobulin antibody less than 1 ?? USG NECK: 11/18/17:?Status post thyroidectomy with no recurrent mass or abnormal lymph nodes identified. History of thyroid cancer 03/05/2017 Testicle lump 04/09/2016 02/12/2022 HYPERTENSION--diet controlled 11/11/2008 10/12/2009 Unspecified essential hypertension 10/11/2006 11/11/2008 Encounters Date Type Department Care Team Description 04/17/2023 Telephone [facility] [address] [place] [address] Josh Salamanca MD Refill Request (testosterone cypionate (DEPO-TESTOSTERONE) 200 mg/mL injection refill needed) 04/17/2023 Refill [facility] [address] [place] [address] Josh Salamanca MD Refill Request (Testosterone Cypionate) from Last 3 Months Immunizations Name Administration Dates Next Due AMB Influenza, IIV4 PF (=>6 mos Flulaval,Fluzone Fluarix)(Flu Clinic Only) 03/12/2014 COVID-19 vaccine (CrossCore 30mcg/0.3mL) PF, MDV 03/10/2021,09/20/2020,08/13/2020 DT (Age < 7 years) 06/23/1990 DTaP 06/11/2009 Influenza A (H1N1), Inactivated 03/31/2009 Influenza A (H1N1), Inactiva oj (Age >=3 Years) 03/31/2009 Influenza RIV4 (Age 18+ Year s) PRESERV FREE 03/07/2022,03/10/2021,02/27/2019 Influenza Virus, Unspecified 03/10/2010 Influenza, IIV3 (Age 6-35 mos) 03/25/2012,2010,03/10/2010 Influenza, IIV4 03/12/2018, 7,03/11/2016,2014,02/24/2014,03/25/2012,03/13/2011,1 ,03/31/2009,03/10/2009 Influenza, IIV4 (=>6mos) MDV 03/11/2020,03/21/20 18,02/10/2016 Td (Age >=7 Years) 06/11/2009,08/31/1999 Td, Preservative Free (age > = 7 Years) 06/05/2009,05/27/2009 Tdap 09/02/2020,06/11/2009,05/27/2009 Family History Medical History Relation Name Comments Hypertension Father Hyperlipidemia Mother Relation Name Status Comments Father Alive Mother Alive Social History Tobacco Use Types Packs/Day Years Used Date Smoking Tobacco: Former Cigarettes Q uit: 05/27/1999 Smokeless Tobacco: Never Tobacco Cessation:Counseling Given: Yes Alcohol Use Standard Drinks/Week Comments Yes 1.7 (1 standard drink = 0.6 oz p ure alcohol) occ PHQ-2 Answer Date Recorded PHQ-2 Score 4 08/25/2018 Social Connections Answer Date Recorded Frequency of Communication with Friends and Fami ly Not on file 05/27/2021 Financial Resource Strain Answer Date R ecorded Difficulty of Paying Living Expenses Not on file 05/27/2021 Difficulty of Paying Living Expenses Not on file 05/27/2021 Sex and Gender Information Value Date Recorded Sex Assigned at Not on file Gender Identity Not on file Sexual Orientation Not on file Obstetrics History Last Filed Vital Signs Vital Sign Reading Time Taken Comments Blood Pressure 128/76 09/24/2022 1:27 PM CDT Pulse 68 09/24/2022 1:27 PM CDT Temperature 37.2 ??C (99 ??F) 02/15/2022 11:20 AM CDT Respiratory Rate 16 02/15/2022 12:20 PM CDT Oxygen Saturation 96% 02/15/2022 12:20 PM CDT Inhaled Oxygen Concentration - - Weight 136.5 kg (301 lb) 09/24/2022 1:27 PM CDT Height 175.3 cm (5' 9) 02/15/2022 8:15 AM CDT Body Mass Index 44.45 02/15/2022 8:15 AM CDT Plan of Treatment Upcoming Encounters Date Type Department Care Team (Late st Contact Info) Description 09/26/2023 10:05 AM CDT Office Visit [facility] [address] [facility] [address] [place] [address] Josh Salamanca MD [address] [facility] [address] [facility] [address] [place] [address] Health Maintenance Due Date Last Done Comments HIV for age 15-65 1981 Hepatitis C screening for age 18-79 01/09/1984 Colonoscopy through age 75 2011 Lipids for age 45-75 06/11/2013 06/11/2008, 05/12/20 07 Zoster (shingles) series for age 50+ (1 of 2) 01/09/2016 Depression screening for age 12+ 08/28/2019 08/27/2018, 08/27/2018, 08/25/2018, Additional history exists COVID-19 vaccine series (2022- season) 2023 03/07/2022, 03/10/2021, 09/20/2020, Additional history exists Influenza for age 50-64 01/25/2023 03/07/20, 03/10/2021, 03/11/2020, Additional history exists BMI (ht and wt on same day) for age 18+ 02/12/2023 02/12/2022, 03/05/2017 Tetanus booster 09/02/2030 09/02/2020, 05/27, 06/11/2009, Additional history exists Tdap Completed 09/02/2020, 05/27, 05/27/2009 Pneumococcal series for age 6-64 Aged Out No longer eligible based on patient's age to complete this topic Medical Devices Implanted Type Area Logistics Vice President Device Identifier Shelf Expiration Date Model / Serial / Lot Screw Foot [id number] [employer] - [id number] Implanted:Qty: 1 on 02/15/2022 by Kathrine Salgado DPM at [facility] Left: Toe [employer] / / Description:LOAD # 2 7 [id number] 2 2ND TOE Explanted Type Area Logistics Vice President Device Identifier Shelf Expiration Date Model / Serial / Lot K-Wire [employer] .[id number] - [id number] Explanted:Qty: 1 on 02/15/2022 at [facility] Left: Toe [employer] 45 / / Description:SECOND TOE LOAD # 2 7 [id number] Wire Kirs .[id number] Smooth [employer] - [id number] Explanted:Qty: 1 on 02/15/2022 at [facility] Left: Toe [employer] 164 / / Description:LOAD # 2 7 [id number] 2 Wire Kirs .[id number] Smooth 6/Pk 1644-10 Depuy/Pete - [id number] Explanted:Qty: 1 on 02/15/2022 by Kathrine Salgado DPM at [facility] Left: Viral [employer] [id number] / / Description:LOAD # 2 7 23657 2 Advance Directives Latest Code Status on File Code Status Date Activated Date Inactivated Comments Full Code 02/15/2022 8:03 AM 02/15/2022 2:58 PM Question Answer Comments Code Status Discussion: Unable to Assess Preferences, Provider to review later Care Teams Zipper Trimmer Relationship Specialty Start Date End Date Oliver Lilly MD [address] [place] [address] PCP - General Emergency Medicine 04/02/16 Josh Salamanca MD [address] [place] [address] Endocrinology 08/22/22
== END 2023-05-29 15:56 | disposition home or self-care (01) ==
LOC: NFLDREF 06-05 15:25
PROVIDERS: PCP Internal Medicine; Referring Provider Internal Medicine; Visit Provider Internal Medicine
DX: N39.0 Urinary tract infection, site not specified (principal); R05.9 Cough, unspecified
CPT/HCPCS: 87086; 87186

== ENCOUNTER 2023-07-12 08:30 | Outpatient (CLI) | payer OTHER, SELFPAY ==
--- OUTSIDE RECORDS SUMMARY | 2023-07-12 08:34 | XMS_ITS | Clinical Summary ---
Author Name Unknown Organization [facility] Address [place], [place] [address] Care Team Providers Care Jewelry Sales Associate Name Role Phone Oliver Lilly MD Primary Care Provider Josh Salamanca MD Unavailable [phone] Allergies Active Allergy Reactions Criticality Noted Date [...] mouth once daily. 0 08/14/2021 Active Safety [place] (BD SafetyGlide Needle) 22 gauge x 1 [...] total thyroidectomy by Dr. Phil Dunaway at [facility]. ?? Pathology showed a papillary carcinoma, 3.6 [...] Encounters Date Type Department Care Team Description 07/10/2023 Transcribe Orders [facility] [address] [place] [id number] Maynor Najera MD 04/17/2023 Telephone [facility] [address] [place] [address] Josh Salamanca MD Refill Request (testosterone cypionate (DEPO-TESTOSTERONE) 200 mg/mL injection refill needed) 04/17/2023 Refill [facility] [address] [place] [address] Josh Salamanca MD Refill Request (Testosterone Cypionate) from Last 3 Months Immunizations Name Administration Dates Next Due AMB Influenza, IIV4 PF (=>6 mos Flulaval,Fluzone Fluarix)(Flu Clinic Only) 03/12/2014 COVID-19 vaccine (Cover [employer] 30mcg/0.3mL) PF, MDV 03/10/2021,09/20/2020,08/13/2020 DT (Age < [...] Description 09/26/2023 10:05 AM CDT Office Visit [facility] [address] [place] [address] Josh Salamanca MD [address] [facility] [address] [place] [address] Health Maintenance Due Date Last Done Comments HIV for age 15-65 1981 Hepatitis C screening for age 18-79 01/09/1984 Colonoscopy through age 75 2011 Lipids for age 45-75 06/11/2013 06/11/2008, 05/12/20 07 Zoster (shingles) series for age 50+ (1 of 2) 01/09/2016 Depression screening for age 12+ 08/28/2019 08/27/2018, 08/27/2018, 08/25/2018, Additional history exists COVID-19 vaccine series ( season) 2023 03/07/2022, 03/10/2021, 09/20/2020, Additional history [...] this topic Medical Devices Implanted Type Area Refrigerated Cargo Clerk Device Identifier Shelf Expiration Date Model / Serial / Lot Screw Foot [id number] [employer] - [id number] Implanted:Qty: 1 on 02/15/2022 by Kathrine Salgado DPM at [facility] Left: Toe [employer] / / Description:LOAD # 2 7 [id number] 2 2ND TOE Explanted Type Area Refrigerated Cargo Clerk Device Identifier Shelf Expiration Date Model / Serial / Lot K-Wire [employer] .[id number] - [id number] Explanted:Qty: 1 on 02/15/2022 at [facility] Left: Toe [employer] / / Description:SECOND TOE LOAD # 2 7 [id number] Wire Kirs .[id number] Smooth [facility] - [id number] Explanted:Qty: 1 on 02/15/2022 at [facility] Left: Toe [employer] 1645-10-000 / / Description:LOAD # 2 7 [id number] 2 Wire Kirs .[id number] Smooth 6/Pk 1644-10-000 Depuy/Pete - [id number] Explanted:Qty: 1 on 02/15/2022 by Kathrine Salgado DPM at [facility] Left: Viral [employer] [id number] / / Description:LOAD # 2 7 63021 2 Advance Directives Latest Code Status on File Code Status Date Activated Date Inactivated Comments Full Code 02/15/2022 8:03 AM 02/15/2022 2:58 PM Question Answer Comments Code Status Discussion: Unable to Assess Preferences, Provider to review later Care Teams Jewelry Sales Associate Relationship Specialty Start Date End Date Oliver Lilly MD [address] [place] [address] PCP - General Emergency Medicine 04/02/16 Josh Salamanca MD [address] [facility] [address] [place] [address] Endocrinology 08/22/22
--- NOTE | 2023-07-12 09:00 | CT_ITS ---
[address] [address] Phone:?[phone] Fax:?[phone] Referring Physician Information: Maynor Najera M.D. [address] [place] [address] Phone:?[phone] Fax:?[phone] Patient:?Shad Neri D.O.B:?1965 Sex:?Male Phone:?[phone] [facility] MRN:?[id number] Exam Date:?07/12/2023 EXAM: CT ABDOMEN AND PELVIS WITHOUT AND WITH CONTRAST, NO ORAL CONTRAST CLINICAL INFORMATION: Recurrent UTI. TECHNICAL INFORMATION: Helical images were obtained through the abdomen and pelvis without intravenous contrast. After the uneventful intravenous injection of 100 mL Isovue-370, images were obtained through the abdomen and pelvis completed following 100-second and 11.5-minute delays (split bolus technique). Coronal and sagittal reformations were completed. COMPARISON: CTs from 10/18/2022 and 06/16/2021. INTERPRETATION: KUB: There is focal hyperattenuation corresponding to a left upper pole calyx (Se 3 Im 145), with internal attenuation of ~90 HU, with adjacent cortical retraction, no convincing contrast enhancement, and generally stable appearance dating back to the baseline study from 06/16/2021. No radiopaque urinary tract calculi. No distinct urothelial lesions. No hydroureteronephrosis on either side. No complex renal cysts or solid renal masses. Urinary bladder is thin-walled, unremarkable. Abdomen: The liver (allowing for mild steatosis), bile ducts, pancreas, spleen (allowing for benign granulomata), and adrenal glands are within normal limits. There is colonic diverticulosis without diverticulitis. Appendix is noninflamed. No abdominopelvic lymphadenopathy by size criteria. Negative for ascites. Unremarkable vasculature. Pelvis: Absent left spermatic cord. Mild prostatomegaly with dystrophic calcification, otherwise unremarkable. CONCLUSION: No active genitourinary disease. No urinary tract calculi. No suspicious urothelial lesions; hyperattenuating calyx in the left upper pole is stable since 2021 and does not show convincing enhancement; this may be hemorrhagic/proteinaceous material within an entrapped calyx. No hydroureteronephrosis. [facility] is committed to minimizing radiation exposure while maintaining high-quality CT images. Technologists adjust the mA and/or kV according to each patient's size to optimize dose. Since we began voluntarily reporting to the [employer]'s Dose Index Registry, our average CT doses have been consistently lower than the national average. Electronically signed on 07/15/2023 10:33:00 AM by Maxi Medrano M.D.
== END 2023-07-12 08:31 | disposition home or self-care (01) ==
LOC: CT 08:32
PROVIDERS: PCP Internal Medicine; Visit Provider Urology
DX: N39.0 Urinary tract infection, site not specified (principal)
CPT/HCPCS: 74178; Q9967

== ENCOUNTER 2023-10-02 13:30 | Outpatient (RCR) | payer OTHER, SELFPAY ==
[2023-04-29 10:31] LABS: White Blood Count* 6.43 K/uL (4.50-11.00)
[2023-04-29 10:32] LABS: Basophils Absolute Auto 0.03 K/uL (0.00-0.30); Basophils Percent Auto 0.5 % (0.0-3.0); Eosinophils Absolute Auto 0.05 K/uL (0.00-0.50); Eosinophils Percent Auto 0.8 % (0.0-7.0); Hemoglobin* 14.9 gm/dL (13.5-17.5); Immature Granulocytes Abs Auto 0.01 K/uL (0.00-0.30); Immature Granulocytes Pct Auto 0.2 %; Lymphocytes Absolute Auto 1.95 K/uL (0.90-2.90); Lymphocytes Percent Auto 30.3 % (20-44); Mean Corpuscular HGB Conc 31 gm/dL (32-36); Mean Corpuscular Hemoglobin 26 pg (26-34); Mean Corpuscular Volume 82 fL (80-100); Monocytes Percent Auto 7.8 % (0.0-11.0); Neutrophils Absolute Auto 3.89 K/uL (1.7-7.0); Neutrophils Percent Auto 60.4 % (42.0-72.0); Platelet Count* 217 K/uL (140-440); RDW Coefficient of Variation % 14.3 % (11.5-15.5); Red Blood Count 5.83 m/uL (4.30-5.90)
[2023-04-29 10:42] LABS: Slide Review Reflex No
[2023-04-29 10:43] LABS: Albumin* 4.4 g/dL (3.3-5.0); Chloride* 98 mmol/L (96-114); Sodium* 136 mmol/L (135-149)
[2023-04-29 10:46] LABS: Alanine Aminotransferase* 28 U/L (4-50); Alkaline Phosphatase* 57 U/L (40-150); Anion Gap 9 mEq/L (7-15); Aspartate Amino Transferase* 27 U/L (12-35); Bilirubin Total* 0.7 mg/dL (0.1-1.5); Blood Urea Nitrogen* 14 mg/dL (7-30); Carbon Dioxide* 29 mmol/L (20-32); Creatinine* 1.2 mg/dL (0.5-1.5); Estimated Glomerular Filt Rate 71 ml/min; Glucose* 213 mg/dL (60-115); Lactate Dehydrogenase* 174 U/L (120-246); Total Protein* 7.2 g/dL (6.0-8.3)
[2023-04-30 22:36] LABS: Beta-hCG Quant Tumor Marker <1 IU/L (0-3)
[2023-05-02 07:33] LABS: Alpha Fetoprotein Tumor Marker 2 ng/mL (0-9)
--- NOTE | 2023-08-06 12:26 | ONC.NURNOTE ---
Addendum entered by Ashley Lechuga RN 08/12/23 13:04: Dr. Ely notes that patient can be seen in September and they will discuss scan and/or labs at this appointment. Patient called and scheduled. Original Note: Patient lost to follow up, he notes that he did not hear back from our office following his CT and labs done in 2022. CT and labs were WNL. Printed last CT to have Dr. Ely determine when due for followup next, as patient would like to be seen by cancer doctor. He is aware that she is out of office this week and [facility] will contact patient next week with plan for follow up.
== END 2023-10-26 23:59 | disposition home or self-care (01) ==
LOC: CCIC 13:30
PROVIDERS: Clinical Nurse Specialist; PCP Internal Medicine; Referring Provider Internal Medicine; Visit Provider Internal Medicine Hematology & Oncology
DX: C63.2 Malignant neoplasm of scrotum (principal); C62.92 Malignant neoplasm of left testis, unspecified whether descended or undescended; D75.1 Secondary polycythemia; C73 Malignant neoplasm of thyroid gland
CPT/HCPCS: 36415; 80053; 82105; 83615; 84443; 84704; 85025; 99213; 99214; G0463

== ENCOUNTER 2023-10-23 10:10 | Outpatient (CLI) | payer OTHER, SELFPAY ==
--- OUTSIDE RECORDS SUMMARY | 2023-10-23 10:22 | XMS_ITS | Clinical Summary ---
Author Organization [facility] Address [place], [place] [address] Care Team Providers Care Preschool Assistant Teacher Name Role Phone Oliver Lilly MD Primary Care Provider Josh Salamanca MD Unavailable [phone] Allergies Active Allergy Reactions Criticality Noted Date Comments Lisinopril Other - Describe In Comment Field cough Medications Medication Sig Dispensed Refills Start Date End Date Status cholecalciferol, Vitamin D3, 5,000 unit tab tablet Take 1 tablet by mouth once daily. 0 06/05/2017 Active losartan (COZAAR) 50 mg tablet Take 50 mg by mouth once daily. 08/17/2021 Active hydroCHLOROthiaz corby (HCTZ) 25 mg tablet Take 25 mg by mouth once daily. 08/14/2021 Active Safety Whittaker (BD SafetyGlide Needle) 22 gauge x 1 1/2 ndleIndications: Hypogonadism in male As directed. Use to administer testosterone every 2 weeks 6 Each 3 06/27/2022 Active Syringe with Needle, Disp, 3 mL 18 x 1 1/2 syrgIndications: Hypogonadism in male As directed. use to draw up testosterone from the vial every 2 weeks 6 Each 3 06/27/2022 Active naproxen (Aleve) 220 mg tablet Take 1 Tablet (220 mg) by mouth every 12 hours if needed for Pain. 0 09/24/2022 Active semaglutide (Wegovy) 0.25 mg/0.5 mL penIndications:M orbid obesity (HC) Inject 0.25 mg subcutaneous once weekly. 2 mL 09/26/2023 Active testosterone cypionate (DEPO-TESTOSTERO NE) 200 mg/mL injectionIndicat ions:Hypogonadis m in male INJECT 0.3 ml INTRAMUSCULARLY EVERY WEEK. 4 mL 3 09/26/2023 Active levothyroxine (SYNTHROID) 175 mcg tabletIndication s:History of thyroid cancer Take 1 Tablet (175 mcg) by mouth once daily. 90 Tablet 3 09/26/2023 Active ferrous sulfate 325 mg delayed release tabletIndication s:Low iron Take 1 Tablet (325 mg) by mouth once daily. 90 Tablet 3 09/27/2022 4 Discontinu ed(*Med complete/R egimen complete/L evel of care change) levothyroxine (SYNTHROID) 175 mcg tabletIndication s:History of thyroid cancer TAKE ONE TABLET BY MOUTH ONE TIME DAILY 90 Tablet 3 12/17/2022 4 Discontinu ed(Reorder (E-cancel not sent)) testosterone cypionate (DEPO-TESTOSTERO NE) 200 mg/mL injectionIndicat ions:Hypogonadis m in male INJECT 1/2 ML INTRAMUSCULARLY EVERY 2 WEEKS 3 mL 2 04/17/2023 4 Discontinu ed(Reorder (E-cancel not sent)) Active Problems Problem Noted Date Diagnosed Date [...] total thyroidectomy by Dr. Phil Dunaway at [facility]. ?? Pathology showed a papillary carcinoma, [...] Encounters Date Type Department Care Team Description 10/10/2023 Telephone [facility] [address] [place] [address] Josh Salamanca MD Prior Authorization (semaglutide (Wegovy) 0.25 mg/0.5 mL pen - EXCLUDED) 09/26/2023 10:05 AM CDT Office Visit [facility] [address] [place] [address] Josh Salamanca MD Follow Up (1 year) 09/26/2023 Travel 08/02/2023 11:00 AM SCRAP YARD WORKER Orders Only [facility] [address] [place] [address] Lab, [place] Outside Order (Ordered by Dr. Maynor Najera) 08/02/2023 Travel 08/02/2023 Orders Only [facility] [address] [place] [address] Saba Fleming MD <No scans attached> from Last 3 Months Immunizations Name Administration Dates Next Due AMB Influenza, IIV4 PF (=>6 mos Flulaval,Fluzone Fluarix)(Flu Clinic Only) 03/12/2014 COVID-19 vaccine (Near Page NTech 30mcg/0.3mL) PF, MDV 03/10/2021,09/20/2020,08/13/2020 DT (Age < 7 years) 06/23/1990 DTaP 06/11/2009 Influenza A (H1N1), Inactivated 03/31/2009 Influenza A (H1N1), Inactiva oj (Age >=3 Years) 03/31/2009 Influenza RIV4 (Age 18+ Year s) PRESERV FREE 02/12/2023,03/07/2022,03/10/2021,2018 Influenza Virus, Unspecified 03/10/2010 Influenza, IIV3 (Age [...] Sign Reading Time Taken Comments Blood Pressure 136/76 09/26/2023 10:06 AM CDT Pulse 68 09/26/2023 10:06 AM CDT Temperature 37.2 ??C (99 ??F) 02/15/2022 11:20 AM CDT Respiratory Rate 16 02/15/2022 12:20 PM CDT Oxygen Saturation 96% 02/15/2022 12:20 PM CDT Inhaled Oxygen Concentration - - Weight 141 kg (310 lb 14.4 oz) 09/26/2023 10:06 AM CDT Height 175.3 cm (5' 9) 02/15/2022 8:15 AM CDT Body Mass Index 45.91 02/15/2022 8:15 AM CDT Plan of Treatment Upcoming Encounters Date Type Department Care Team (Late st Contact Info) Description 10/01/2024 10:05 AM CDT Office Visit [facility] [address] [place], [place] [id number] Josh Salamanca MD [address] [place], [place] [id number] Health Maintenance Due Date Last Done Comments HIV for age 15-65 1981 Hepatitis C screening for age 18-79 01/09/1984 Colonoscopy through age 75 2011 Lipids for age 45-75 06/11/2013 06/11/2008, 05/12/20 07 Zoster (shingles) series for age 50+ (1 of 2) 01/09/2016 Depression screening for age 12+ 08/28/2019 08/27/2018, 08/27/2018, 08/25/2018, Additional history exists BMI (ht and wt on same day) for age 18+ 02/12/2023 02/12/2022, 03/05/2017 Influenza for age 50-64 01/26/2024 02/13/20 23, 03/07/2022, 03/10/2021, Additional history exists Tetanus booster 09/02/2030 09/02/2020, 05/27, 06/11/2009, Additional history exists Tdap Completed 09/02/2020, 05/27, 05/27/2009 COVID-19 vaccine series Completed 02/23/20 23, 03/07/2022, 03/10/2021, Additional history exists Pneumococcal series for age 6-64 Aged Out No longer eligible based on patient's age to complete this topic Medical Devices Implanted Type Area Account Services Analyst Device Identifier Shelf Expiration Date Model / Serial / Lot Screw Foot [id number] [employer] - [id number] Implanted:Qty: 1 on 02/15/2022 by Kathrine Salgado DPM at [facility] Left: Toe [employer] 40 / / Description:LOAD # 2 7 [id number] 2 2ND TOE Explanted Type Area Account Services Analyst Device Identifier Shelf Expiration Date Model / Serial / Lot K-Wire [employer] .[id number] - [id number] Explanted:Qty: 1 on 02/15/2022 at [facility] Left: Toe [employer] 45 / / Description:SECOND TOE LOAD # 2 7 [id number] Wire Kirs .[id number] Smooth [employer] - [id number] Explanted:Qty: 1 on 02/15/2022 at [facility] Left: Toe [employer] 1645-10-000 / / Description:LOAD # 2 7 [id number] 2 Wire Kirs .[id number] Smooth 6/Pk 1644-10-000 Depuy/Pete - [id number] Explanted:Qty: 1 on 02/15/2022 by Kathrine Salgado DPM at [facility] Left: Toe [employer] [id number] / / Description:LOAD # 2 7 [id number] 2 Procedures Procedure Name Priority Date/Time Associated Diagnosis Comments THYROGLOBULIN BY JUDI [id number] Routine 09/26/2023 10:35 AM CDT History of thyroid cancer HEMOGLOBIN Routine 09/26/2023 10:35 AM CDT Hypogonadism in male TESTOSTERONE,TOTAL Routine 09/26/2023 10 :35 AM CDT Hypogonadism in male THYROGLOBULIN ANTIBODY AND THYROGLOBULIN JUDI OR LCMS Routine 09/26/2023 10:35 AM CDT History of thyroid cancer T4,FREE Routine 09/26/2023 10:35 AM CDT History of thyroid cancer TSH Routine 09/26/2023 10:35 AM CDT History of thyroid cancer URINE CULTURE Routine 08/02/2023 10:56 AM SCRAP YARD WORKER Urinary tract infection, site not specified LIPID PANEL W REFLEX MEASURED LDL Routine 06/11/2008 7:09 AM SCRAP YARD WORKER HYPERLIPIDEMIA from Last 3 Months or Most Recently Relevant to Health Maintenance Results * (ABNORMAL) THYROGLOBULIN BY JUDI [id number] (09/26/2023 10:35 AM CDT) Thyroglobulin by JUDI <0.1(L) 1.4 - 29.2 ng/mL 09/30/2023 12:07 PM CDT FOR ESOTERIC TESTING ([facility]) Comment: According to the National Academy of Clinical Biochemistry, the reference interval for Thyroglobulin (TG) should be related to euthyroid patients and not for patients who underwent thyroidectomy. TG reference intervals for these patients depend on the residual mass of the thyroid tissue left after surgery. Establishing a post-operative baseline is recommended. The assay limit of quantitation is 0.1 ng/mL Thyroglobulin measured by Raisa Catrina Immunometric Assay Blood BLOOD SPECIMEN / Unknown Venipuncture / Unknown 09/26/2023 10:35 AM CDT 09/26/2023 10:38 AM CDT Narrative FOR ESOTERIC TESTING ([facility]) - 09/30/2023 12:07 PM CDT Performed at: ??01 - [facility] [address] [place] [address] [address], [place], [place] ??[id number] Health Services Manager: ROQUE Manning MD, Phone: ??[phone] Josh Salamanca MD SEND OUTS FOR ESOTERIC TESTING ([facility]) [address] [place] [address], * THYROGLOBULIN ANTIBODY AND THYROGLOBULIN JUDI OR LCMS (09/26/2023 10:35 AM CDT) Pathologist [facility] TgAb+Thyroglobulin ,JUDI or LCMS <1.0 0.0 - 0.9 IU/mL 09/30/2023 12:07 PM CDT [facility] ESOTERIC TESTING ([facility]) Comment: Thyroglobulin Antibody measured by Raisa Prole Methodology It should be noted that the presence of thyroglobulin antibodies may not be pathogenic nor diagnostic, especially at very low levels. The assay telephone service adviser has found that four percent of individuals without evidence of thyroid disease or autoimmunity will have positive TgAb levels up to 4 IU/mL. Blood BLOOD SPECIMEN / Unknown Venipuncture / Unknown 09/26/2023 10:35 AM CDT 09/26/2023 10:38 AM CDT Narrative [facility] ESOTERIC TESTING ([facility]) - 09/30/2023 12:07 PM CDT Performed at: ??01 - [address], [place], [place] ??[id number] Health Services Manager: ROQUE Manning MD, Phone: ??[phone] Josh Salamanca MD SEND OUTS [facility] ESOTERIC TESTING ([facility]) [facility] [place] [address], * TSH (09/26/2023 10:35 AM CDT) Pathologist [facility] TSH 1.57 0.27 - 4.20 uIU/mL 09/26/2023 12:39 PM CDT [facility] Blood BLOOD SPECIMEN / Unknown Venipuncture / Unknown 09/26/2023 10:35 AM CDT 09/26/2023 10:38 AM CDT [facility] - 09/26/2023 12:39 PM CDT In Adults, TSH values between 5.00 and 10.00 uIU/ml do not necessarily indicate the presence of Hypothyroidism. Correlation with clinical findings such as presence of goiter and/or Thyroperoxidase (TPO) Antibody may be helpful. For more information please refer to KEITH 2004; 291: 228-238. Josh Salamanca MD CHEMISTRY Performing Organization Address City/[facility]/ZIP Co de Phone Number [facility] SENDOUT INTERNAL ZIP [id number] [address] [place] [address] * HEMOGLOBIN (09/26/2023 10:35 AM CDT) HEMOGLOBIN 15.8 13.5 - 17.5 g/dL 09/26/2023 10:50 AM CDT [facility] MCV 81 80 - 100 fL 09/26/2023 10:50 AM CDT [facility] Blood BLOOD SPECIMEN / Unknown Venipuncture / Unknown 09/26/2023 10:35 AM CDT 09/26/2023 10:38 AM CDT Josh Salamanca MD HEMATOLOGY Performing Organization Address City/[facility]/ZIP Co de Phone Number [facility] SENDOUT INTERNAL ZIP [phone] [place] [address] * T4,FREE (09/26/2023 10:35 AM CDT) T4,FREE 1.41 0.93 - 1.70 ng/dL 09/26/2023 12:39 PM CDT [facility] Blood BLOOD SPECIMEN / Unknown Venipuncture / Unknown 09/26/2023 10:35 AM CDT 09/26/2023 10:38 AM CDT Josh Salamanca MD CHEMISTRY Performing Organization Address City/[facility]/ZIP Co de Phone Number [facility] SENDOUT INTERNAL ZIP [address] [place] [id number] * TESTOSTERONE,TOTAL (09/26/2023 10:35 AM CDT) TESTOSTERONE,T OTAL 210.0 ng/dL 09/26/2023 5:07 PM CDT [facility] Blood BLOOD SPECIMEN / Unknown Venipuncture / Unknown 09/26/2023 10:35 AM CDT 09/26/2023 10:38 AM CDT Narrative [facility] - 09/26/2023 5:07 PM CDT ? TESTOSTERONE, TOTAL REFERENCE RANGES Age Range ? Female ?Male ?Units 20-50 years ? 8.4-48.1 ?249.0-836.0 ?? ng/dl 50-999 years ?2.9-40.8 ?193.0-740.0 ?? ng/dl Josh Salamanca MD CHEMISTRY Performing Organization Address [facility] de Phone Number [facility] [address] [place] [address], * URINE CULTURE (08/02/2023 10:56 AM SCRAP YARD WORKER) CULTURE <10,000 CFU/mL multiple organisms 08/03/2023 2:[address] [facility] Urine URINE SPECIMEN / Unknown Non-Blood / Unknown 08/02/2023 10:56 AM SCRAP YARD WORKER 08/02/2023 10:56 AM SCRAP YARD WORKER Saba Fleming MD MICROBIOLOGY Performing Organization Address [facility] de Phone Number [facility] [address] [place] [address], * (ABNORMAL) lipid with reflex (06/11/2008 7:09 AM SCRAP YARD WORKER) CHOLESTEROL,TOTAL 194 110 - 199 mg/dL [facility] TRIGLYCERIDES 216(H) <150 mg/dL [facility] HDL CHOLESTEROL 50 >40 mg/dL [facility] CHOL/HDL RATIO 3.88 <4.51 [facility] LDL CHOLESTEROL 101 <131 mg/dL [facility] PATIENT STATUS Fasting [facility] Blood specimen (specimen) BLOOD SPECIMEN / Unknown 06/11/2008 7:09 AM SCRAP YARD WORKER 06/11/2008 7:01 AM SCRAP YARD WORKER Chinedu Ann MD CHEMISTRY Performing Organization Address [facility] de Phone Number [facility] [address] [place] [address] from Last 3 Months or Most Recently Relevant to Health Maintenance Advance Directives * Full Code (Latest Code Status on File) Date Activated Date Inactivated Comments 02/15/2022 8:03 AM 02/15/2022 2:58 PM Question Answer Comments Code Status Discussion: Unable to Assess Preferences, Provider to review later Care Teams Preschool Assistant Teacher Relationship Specialty Start Date End Date Oliver Lilly MD [address] [place] [address] PCP - General Emergency Medicine 04/02/16 Josh Salamanca MD [address] [place] [address] Endocrinology 08/22/22
== END 2023-10-23 10:11 | disposition home or self-care (01) ==
PROVIDERS: PCP Internal Medicine; Visit Provider Internal Medicine
DX: D64.9 Anemia, unspecified (principal); N39.0 Urinary tract infection, site not specified
CPT/HCPCS: 80048; 83540; 83550; 87086; 87186

== ENCOUNTER 2024-03-04 14:49 | Outpatient (CLI) | payer OTHER, SELFPAY ==
--- OUTSIDE RECORDS SUMMARY | 2024-03-04 14:52 | XMS_ITS | Referral Summary ---
Author Organization [facility] Address [address] [place] [address] Care Team Providers Care Dubbing Machine Operator Name Role Phone Elsewhere, Pcp Primary Care Provider Unavailabl e Source Comments Patient records contain information from all sites at [facility]. For routine questions regarding patient records, call [phone] during business hours, M-F 8:00 AM - 5:00 PM Central Time. Record requests for emergency care only can be directed to [phone] at any time.[facility] Encounters Date Type Department Care Team Description 02/25/2024 9:00 AM CDT Office Visit Department of Family Medicine in [place], [place] [address] [place] [address] Lena Freeman, C.N.P., D.N.P., A.P.N.P. Brie Palacios M.D. Cough Post Infectious (Cough Subacute) (Primary Dx); Symptom Urinary Discharge Disposition: Home or Self Care 02/13/2024 10:30 AM CDT Office Visit Department of Occupational Medicine in [place] [address] [place] [address] Anoop Colvin M.D., Ph.D. Occupational Health Examination (Primary Dx) Discharge Disposition: Home or Self Care 02/12/2024 10:30 AM CDT Clinical Support Department of Occupational Medicine in [address] [address] Brooke Thomason APRN, C.N.P. Drug Screen (Primary Dx) Discharge Disposition: Home or Self Care from Last 3 Months Allergies Active Allergy Reactions Criticality Noted Date Comments Lisinopril Other (see comments),Cough High 9 cough Medications Medication Sig Dispensed Refills Start Date End Date Status cholecalciferol (VITAMIN D3) 125 mcg (5,000 Unit) tablet Take 1 tablet by mouth daily. 8 Active levothyroxine (SYNTHROID, LEVOTHROID) 175 mcg tablet Take 1 tablet by mouth daily. 1 Active testosterone cypionate (DEPO-TESTOSTER ONE) 200 mg/mL injection INJECT 1ML INTRAMUSCULARLY EVERY 2 WEEKS 1 Active losartan (Cozaar) 50 mg tablet Take 50 mg by mouth. 4 Active testosterone cypionate (Depo-Testoster one) 200 mg/mL injection Inject 100 mg intramuscularly. 2 Active metFORMIN (Glucophage) 500 mg tablet Take 1 tablet by mouth 2 (two) times a day. 4 Active hydroCHLOROthia zide (HydroDiuril) 25 mg tablet Take 25 mg by mouth daily. 2 Active cefUROXime (Ceftin) 500 mg tablet Take 500 mg by mouth every 12 (twelve) hours. Active codeine-guaiFEN esin (Robitussin AC) 10-100 mg/5 mL liquid Take 5-10 mL by mouth every 4 (four) hours as needed for cough. 118 mL 4 Active lisinopriL (PRINIVIL,ZESTR IL) 10 mg tablet Take 1 tablet by mouth daily. 6 02/25/20 24 Discontinued naproxen sodium (ALEVE/ANAPROX) 220 mg tablet Take 220 mg by mouth. 8 02/25/20 24 Discontinued sertraline (ZOLOFT) 100 mg tablet Take 100 mg by mouth. 9 02/25/20 24 Discontinued eszopiclone (LUNESTA) 2 mg tablet Take 2 mg by mouth at bedtime. Take immediately before bedtime 02/25/20 24 Discontinued oxyCODONE (ROXICODONE) 5 mg immediate release tabletIndicatio ns:Acute Pain Take 1 tablet (5 mg total) by mouth every 4 (four) hours as needed for pain Indication: acute pain. 12 tablet 1 02/25/20 24 Discontinued Active Problems No known active problems Immunizations Name Administration Dates Next Due DT, Pediatric 06/23/1990 DTaP (Infan[employer], [employer]) 06/11/2009 H1N1 All Forms 03/31/2009 Influenza, Unspecified 03/10/2010 Social History Tobacco Use Types Packs/Day Years Used Date Smoking Tobacco: Never Smokeless Tobacco: Never Alcohol Use Standard Drinks/Week Comments Not Currently 0 (1 standard drink = 0.6 oz pur e alcohol) Dental Answer Date Recorded Dental: Regular Dentist Unknown 02/09/20 21 Sex and Gender Information Value Date Recorded Sex Assigned at Not on file Gender Identity Not on file Sexual Orientation Not on file Last Filed Vital Signs Vital Sign Reading Time Taken Comments Blood Pressure 138/80 02/25/2024 8:50 AM CDT Pulse 53 02/25/2024 8:50 AM CDT Temperature 35.9 ??C (96.6 ??F) 02/25/2024 8:50 AM CD T Respiratory Rate 18 02/08/2021 11:20 PM CDT Oxygen Saturation 96% 02/25/2024 8:50 AM CDT Inhaled Oxygen Concentration - - Weight 126 kg (278 lb 14.1 oz) 02/25/2024 8:50 A M CDT Height - - Body Mass Index - - Plan of Treatment Not on file Procedures Procedure Name Priority Date/Time Associated Diagnosis Comments URINALYSIS WITH MICROSCOPIC IF INDICATED, U Routine 02/25/2024 9:38 AM CDT Symptom Urinary BASIC METABOLIC PANEL, S/P STAT 02/08/2021 11:58 PM CDT from Last 3 Months or Most Recently Relevant to Health Maintenance Results * Urinalysis with Microscopic if Indicated (02/25/2024 9:38 AM CDT) Source Urine, Urine, Midstream 02/25/2024 9:42 AM CDT [facility] Clarity Clear Clear 02/25/2024 9:51 AM CDT [facility] Color Yellow 02/25/2024 9:51 AM CDT [facility] Comment: ----REFERENCE VALUE---- Colorless Yellow Niurka Blood Negative Negative 02/25/2024 9:51 AM CDT [facility] Nitrite Negative Negative 02/25/2024 9:51 AM CDT [facility] Leukocyte Esterase Negative Negative 02/25/2024 9:51 AM CDT [facility] Protein Negative mg/dL 02/25/2024 9:51 AM CDT [facility] Comment: ----REFERENCE VALUE---- Negative Trace Glucose Negative Negative mg/dL 02/25/2024 9:51 AM CDT [facility] Ketones, QI(U) Negative Negative mg/dL 02/25/2024 9:51 AM CDT [facility] Bilirubin Negative Negative 02/25/2024 9:51 AM CDT [facility] pH 5.5 5.0 - 8.0 02/25/2024 9:51 AM CDT [facility] Specific [place] 1.025 1.001 - 1.035 02/25/2024 9:51 AM CDT [facility] Urobilinogen 0.2 0.2 - 1.0 mg/dL 02/25/2024 9:51 AM CDT ONS[facility] Urine (Urine, Midstream) 02/25/2024 9:38 AM CDT 02/25/2024 9:42 AM CDT Brie Palacios M.D. LAB URINE ORDERA BLES [facility] IN [address] [address], [facility] ONS[facility] in [address] [address] from Last 3 Months Care Teams Dubbing Machine Operator Relationship Specialty Start Date End Date Elsewhere, Pcp PCP - General Internal Medicine 02/25/24
--- OUTSIDE RECORDS SUMMARY | 2024-03-04 14:52 | XMS_ITS | Encounter Summary ---
Author Organization [facility] Address [address] [place] [address] Care Team Providers Care Professor Of Theology Name Role Phone Unavailable Primary Care Provider Unavailabl e Reason for Referral * Outpatient (Routine) - Authorized Specialty Diagnoses / Procedures Referred By Maylin matta Referred To Contact Diagnoses Drug Screen Procedures OCC Drug screening Brooke Thomason APRN, C.N.P. [address] [place] [address] [facility] Referral ID Status Reason Start Date Expiration Date V isits Requested Visits Authorized [id number] Authorized 02/12/2024 02/11/2025 1 1 Reason for Visit * Reason Comments Drug Screen Breath Alcohol Screen [facility] Encounter Details Date Type Department Care Team (Latest Contact Info) Description 02/12/2024 10:30 AM CDT Clinical Support Department of Occupational Medicine in [place], [place] [address] [place] [address] Brooke Thomason APRN, C.N.P. [address] [place] [address] Drug Screen (Primary Dx) Discharge Disposition: Home or Self Care Social History Tobacco Use Types Packs/Day Years [...] on file Sexual Orientation Not on file documented as of this encounter Progress Notes * Maryam Rodriguez, L.P.N. 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 documented in this encounter Plan of Treatment Scheduled Orders Name Type Priority Associated Diagnoses Orde r Schedule OCC Drug screening Procedures Routine Drug Screen Ordered: 02/12/2024 documented as of this encounter Visit Diagnoses Diagnosis Drug Screen- Primary documented in this encounter
--- OUTSIDE RECORDS SUMMARY | 2024-03-04 14:52 | XMS_ITS ---
Author Organization [facility] Address [address] [place] [address] Care Team Providers Care Shop Router Name Role Phone Unavailable Unavailable Unavailable Surgery Details Not on file Complications Check Surgery Details section. Procedure Estimated Blood Loss Check Surgery Details section. Procedure Findings Check Surgery Details section. Procedure Specimens Taken Check Surgery Details section.
--- OUTSIDE RECORDS SUMMARY | 2024-03-04 14:52 | XMS_ITS | Encounter Summary ---
Author Organization [facility] Address [address] [place] [address] Care Team Providers Care Machine Joint Cutter Name Role Phone Elsewhere, Pcp Primary Care Provider Unavailabl e Reason for Visit * Reason Comments Upper Respiratory Infection Urinary Tract Infection Encounter Details Date Type Department Care Team (Late st Contact Info) Description 02/25/2024 9:00 AM CDT Office Visit Department of Family Medicine in [place], [place] [address] [place] [address] Lena Freeman, C.N.P., D.N.P., A.P.N.P. [address] [place] [address] Brie Palacios M.D. [address] [place] [address] Cough Post Infectious (Cough Subacute) (Primary Dx); Symptom Urinary Discharge Disposition: Home or Self Care Social [...] on file documented as of this encounter Last Filed Vital Signs Vital Sign Reading Time Taken Comments Blood Pressure 138/80 02/25/2024 8:50 AM CDT Pulse 53 02/25/2024 8:50 AM CDT Temperature 35.9 ??C (96.6 ??F) 02/25/2024 8:50 AM CD T Respiratory Rate - - Oxygen Saturation 96% 02/25/2024 8:50 AM CDT Inhaled Oxygen Concentration - - Weight 126 kg (278 lb 14.1 oz) 02/25/2024 8:50 A M CDT Height - - Body Mass Index - - documented in this encounter Plan of Treatment Not on file documented as of this encounter Procedures Procedure Name Priority Date/Time Associated Diagnosis Comments URINALYSIS WITH MICROSCOPIC IF INDICATED, U Routine 02/25/2024 9:38 AM CDT Symptom Urinary documented in this encounter Results * Urinalysis with Microscopic if Indicated [...] 8.0 02/25/2024 9:51 AM CDT ONSK Specific [place] 1.025 1.001 - 1.035 02/25/2024 9:51 AM CDT ONSK Urobilinogen 0.2 0.2 - 1.0 mg/dL 02/25/2024 9:51 AM CDT ONSK Urine (Urine, Midstream) 02/25/2024 9:38 AM CDT 02/25/2024 9:42 AM CDT Brie Palacios M.D. LAB URINE [facility] [place] [address], [facility] [place] [address] documented in this encounter Visit Diagnoses Diagnosis Cough Post Infectious (Cough Subacute)- Primary Symptom Urinary documented in this encounter Care Teams Machine Joint Cutter Relationship Specialty Start Date End Date Elsewhere, Pcp PCP - General Internal Medicine 02/25/24 documented as of this encounter
--- OUTSIDE RECORDS SUMMARY | 2024-03-04 14:52 | XMS_ITS | Encounter Summary ---
Author Organization [facility] Address [address] [place] [address] Care Team Providers Care Parts Chaser Name Role Phone Unavailable Primary Care Provider Unavailabl e Encounter Details Date Type Department Care Team (Late st Contact Info) Description 02/13/2024 10:30 AM CDT Office Visit Department of Occupational Medicine in [place], [place] [address] [place] [phone] Anoop Colvin M.D., Ph.D. [address] [place] [address] Occupational Health Examination (Primary Dx) Discharge Disposition: [...] on file documented as of this encounter Consult Notes * Anoop Colvin M.D., Ph.D. - 02/13/2024 10:30 AM CDT Visit created for billing and administrative purposes. documented in this encounter Plan of Treatment Not on file documented as of this encounter Visit Diagnoses Diagnosis Occupational Health Examination- Primary documented in this encounter
--- OUTSIDE RECORDS SUMMARY | 2024-03-04 14:52 | XMS_ITS | Clinical Summary ---
Author Organization [facility] Address [address] [place] [address] Care Team Providers Care Resident Service Coordinator Name Role Phone Elsewhere, Pcp Primary Care Provider Unavailabl e Source Comments Patient records contain information from all sites at [facility]. For routine questions regarding patient records, call [phone] during business hours, M-F 8:00 AM - 5:00 PM Central Time. Record requests for emergency care only can be directed to [phone] at any time.[facility] Allergies Active Allergy Reactions Criticality Noted Date [...] Discontinued Active Problems No known active problems Encounters Date Type Department Care Team Description 02/25/2024 9:00 AM CDT Office Visit Department of Family Medicine in [place], [place] [address] [place] [address] Lena Freeman C.N.P., D.N.P., A.P.N.P. Brie Palacios M.D. Cough Post Infectious (Cough Subacute) (Primary Dx); Symptom Urinary Discharge Disposition: Home or Self Care 02/13/2024 10:30 AM CDT Office Visit Department of Occupational Medicine in [address] [phone] Anoop Colvin M.D., Ph.D. Occupational Health Examination (Primary Dx) Discharge Disposition: Home or Self Care 02/12/2024 10:30 AM CDT Clinical Support Department of Occupational Medicine in [address] [address] Brooke Thomason APRN, C.N.P. Drug Screen (Primary Dx) Discharge Disposition: Home or Self Care from Last 3 Months Immunizations Name Administration Dates Next Due DT, [...] Mass Index - - Plan of Treatment Health Maintenance Due Date Last Done Comments CT Colonography 1966 Cologuard 1966 Colonoscopy 1966 Colorectal Cancer Screening 1966 FIT 1966 HIV Screening 1966 Hepatitis C Screening 1966 Hepatitis B Vaccines (1 of 3 - 19+ 3-dose series) 1985 Depression Screening (Annual PHQ-2) 05/27/2023 COVID-19 Vaccine (2023- season) 2024 03/07/2022, 03/10/2021, 09/20/2020, Additional history exists Zoster Vaccines (2 of 2) 02/13/2024 12/19/2023 Influenza Vaccine (#1) 2024 , 03/07/2022, 03/10/2021, Additional history exists Thyroid Stimulating Hormone (TSH) test for thyroid function 09/25/2024 09/26/2023, 09/24/2022, 09/15/2021, Additional history exists Creatinine Level (Kidney Function Test) 01/07/2025 2024, 02/12/2022, 02/08/2021, Additional history exists Potassium Level 01/07/2025 2024, 01/25, 02/08/2021, Additional history exists Sodium Level 01/07/2025 2024, 01/25, 02/08/2021, Additional history exists Fasting Glucose for Diabetes Screening 01/07/2027 2024, 02/12/2022, 02/08/2021, Additional history exists Lipid (Cholesterol) Screening 01/07/2029 2024 DTaP,Tdap,and Td Vaccines (7 - Td or Tdap) 09/02/2030 09/02/2020, 06/11/2009, 06/11/2009, Additional history exists Pneumococcal vaccine (0-64 years) Aged Out No longer eligible based on patient's age to complete this topic Procedures Procedure Name Priority Date/Time Associated Diagnosis [...] 8.0 02/25/2024 9:51 AM CDT ONSK Specific [place] 1.025 1.001 - 1.035 02/25/2024 9:51 AM CDT ONSK Urobilinogen 0.2 0.2 - 1.0 mg/dL 02/25/2024 9:51 AM CDT ONSK Urine (Urine, Midstream) 02/25/2024 9:38 AM CDT 02/25/2024 9:42 AM CDT Brie Palacios M.D. LAB URINE [facility] [place] [address], [facility] ONSK [facility] in [address] [address] from Last 3 Months Care Teams Resident Service Coordinator Relationship Specialty Start Date End Date Elsewhere, Pcp PCP - General Internal Medicine 02/25/24
--- OUTSIDE RECORDS SUMMARY | 2024-03-04 14:53 | XMS_ITS | Clinical Summary ---
Author Organization [employer] Address [place], [place] [address] Care Team Providers Care Lining Stitcher Name Role Phone Oliver Lilly MD Primary Care Provider Josh Salamanca MD Unavailable [phone] Lena Bennett RN Unavailable [phone] Dung Ponce MD Unavailable + Amber Harrison RD Unavailable Allergies Active Allergy Reactions Criticality Noted Date Comments Lisinopril Other - Describe In Comment Field cough Medications Medication Sig Dispensed Refills Start Date End Date Status cholecalciferol, Vitamin D3, 5,000 unit tab tablet Take 1 tablet by mouth once daily. 0 06/05/2017 Active losartan (COZAAR) 50 mg tablet Take 50 mg by mouth once daily. 08/17/2021 Active hydroCHLOROthiazi de (HCTZ) 25 mg tablet Take 25 mg by mouth once daily. 08/14/2021 Active Safety [facility] (BD SafetyGlide Needle) 22 gauge x 1 [...] if needed for Pain. 0 09/24/2022 Active testosterone cypionate (DEPO-TESTOSTERON E) 200 mg/mL injectionIndicati ons:Hypogonadism in male INJECT 0.3 ml INTRAMUSCULARLY EVERY WEEK. 4 mL 3 09/26/2023 Active levothyroxine (SYNTHROID) 175 mcg tabletIndications :History of thyroid cancer Take 1 Tablet (175 mcg) by mouth once daily. 90 Tablet 3 09/26/2023 Active Active Problems Patient Care Coordination No te Formatting of this note is d ifferent from the original. Weight Management - Adult Surgical Program Patient Received Binder: to receive with in person initial visit Part of KTYA Program: no RDC or GS Patient: No Initial Consult / Established Care 12/23/[address] Dung Bennett station engineer: Wt Readings from Last 1 Encounters: 09/26/23 (!) 141 kg (310 lb 14.4 oz) lbs, Ht Readings from Last 1 Encounters: 02/15/22 1.753 m (5' 9) BMI: 45.43 Planned Operation Sleeve Gastrectomy Payor: [employer] / Plan: HP / Product Type: *No Product type* / Insurance requirements:Rule out endocrine and HP Phone Program Est. Pgm Completion: ~ April, Procedure Location: [place] Co-morbidities: dyslipidemia, hypertension, and HARRIET Orders: Labs Yes Imaging / Procedures none Pre-Surgery Program Consults: - Registered Dietitian 3 - Psychological Evaluation: yes Referrals: - Sleep Medicine for HARRIET work-up: - Hematology: - Gastroenterology: - Cardiology: - PT: REQUIRED for insurance -Tobacco Cessation: reports that he quit smoking about 24 years ago. He has never used smokeless tobacco. Future Appointments Date Time Provider Department Center 12/23/2023 1:00 PM Dung Ponce MD [facility] 12/23/2023 1:30 PM Lena Bennett RN [facility] UD 12/23/2023 2:[address] [facility] 10/01/2024 10:05 AM Josh Salamanca MD [facility] Problem Noted Date Diagnosed Date Adult BMI 45.0-49.9 kg/sq m 12/23/2023 HARRIET 09/27/2010 AHI-/ 08/18/2015 AHI-38 10/09/2018 Postsurgical hypothyroidism 03/05/2017 Hypogonadism in male 03/05/2017 Leiomyosarcoma 06/06/2016 HTN (hypertension) 10/12/2009 Plantar fascial fibromatosis 01/16/2007 Other specified congenital anomaly of kidney Obesity, unspecified 10/11/2006 Other and unspecified hyperlipidemia 10/11/2006 Lichen sclerosus High triglycerides Resolved Problems Problem Noted Date Diagnosed Date Resolved Date 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 Phil Dunaway at [facility]. ?? Pathology showed a papillary carcinoma, 3.6 [...] Encounters Date Type Department Care Team Description 03/04/2024 8:00 AM CDT Nutrition/Dietici an [facility] [address] [place] [address] Medical Nutrition Therapy (SWL 07/27 last pre op f/u) 02/19/2024 10:41 AM CDT - 02/19/2024 11:59 PM CDT Hospital Encounter [address] [place] [address] Dung Madrid ra, MD Nightingale, Alexandra, PT 02/19/2024 Travel 02/03/2024 7:12 AM CDT - 02/03/2024 11:59 PM CDT Hospital Encounter [address] [address] Dung Madrid ra, MD Nightingale, Alexandra, PT 02/03/2024 Travel 01/23/2024 11:30 AM CDT Nutrition/Dietici an [facility] [address] [place] [address] Medical Nutrition Therapy (SWL f/u #2/3) 01/23/2024 Travel 01/21/2024 11:56 AM CDT - 01/21/2024 11:59 PM CDT Hospital Encounter [address] [address] Dung Madrid ra, MD Nightingale, Alexandra, PT Morbid obesity (HC); Primary osteoarthritis of both knees 01/21/2024 9:45 AM CDT Office Visit [facility] [address] [place] [address] Paramjit Swan PsyD, Mental Health Intake 01/21/2024 Travel 01/14/2024 Orders Only [facility] Weight Management [facility] [address] [place] [phone] Dung Madrid ra, MD <No scans attached> 2024 8:30 AM CDT Orders Only [facility] [address] [place] [address] Lab, [facility] 2024 Travel 12/24/2023 Telephone [facility] General Surgery [facility] [address] [place] [phone] [facility], Dung Hopkins MD Questions 12/23/2023 2:00 PM CDT Nutrition/Dietici an [facility] Weight Management - [place] [address] [place] [phone] Amber Harrison RD Medical Nutrition Therapy (swl initial/) 12/23/2023 1:30 PM CDT Education [facility] Weight Management - [place] [address] [place] [phone] Lena Bennett RN Weight; Care Coordination ([facility] ed) 12/23/2023 1:00 PM CDT Office Visit [facility] Weight Management - [place] [address] [place] [phone] Dung Madrid ra, MD Consult ([facility] initial. ) 12/23/2023 Travel from Last 3 Months Immunizations Name Administration Dates Next Due AMB Influenza, IIV4 PF (=>6 mos Flulaval,Fluzone Fluarix)(Flu Clinic Only) 03/12/2014 COVID-19 vaccine ([employer] 30mcg/0.3mL) PF, MDV 03/10/2021,09/20/2020,08/13/2020 DT (Age < [...] Sign Reading Time Taken Comments Blood Pressure 140/78 12/23/2023 1:12 PM CDT Pulse 85 12/23/2023 1:12 PM CDT Temperature 37.2 ??C (99 ??F) 02/15/2022 11: 20 AM CDT Respiratory Rate 16 12/23/2023 1:12 PM CDT Oxygen Saturation 94% 12/23/2023 1:12 PM CDT Inhaled Oxygen Concentration - - Weight 126.8 kg (279 lb 9.6 oz) 024 10:00 AM CDT Height 175.3 cm (5' 9.02) 03/04/2024 1 0:00 AM CDT Body Mass Index 41.27 03/04/2024 10:00 AM CDT Plan of Treatment Upcoming Encounters Date Type Department Care Team (Late st Contact Info) Description 03/10/2024 9:00 AM CDT Office Visit [facility] [address] [place] [phone] Paramjit Swan, Libby, LP [address] [place] [address] 10/01/2024 10:05 AM CDT Office Visit [facility] [address] [place], [place] [phone] Josh Salamanca MD [address] [place] [address] Health Maintenance Due Date Last Done Comments HIV for age 15-65 1981 Hepatitis C screening for age 18-79 01/09/1984 Colonoscopy through age 75 2011 Zoster (shingles) series for age 50+ (1 of 2) 01/09/2016 Depression screening for age 12+ 08/28/2019 08/27/2018, 08/27/2018, 08/25/2018, Additional history exists COVID-19 vaccine series (2023- season) 2024 02/22/2023, 03/07/2022, 03/10/2021, Additional history exists Influenza for age 50-64 01/26/2024 02/13/20 23, 03/07/2022, 03/10/2021, Additional history exists BMI (ht and wt on same day) for age 18+ 03/04/2025 03/04/2024, 01/23/2024, 12/23/2023, Additional history exists Lipids for age 45-75 01/07/2029 2024, 06/11/2008, 05/12/2007 Tetanus booster 09/02/2030 09/02/2020, 05/27, 06/11/2009, Additional history exists Tdap Completed 09/02/2020, 05/27, 05/27/2009 Pneumococcal series for age 6-64 Aged Out No longer eligible based on patient's age to complete this topic Medical Devices Implanted Type [employer] Device Identifier Shelf Expiration Date Model / Serial / Lot Screw Foot [id number] [employer] - [id number] Implanted:Qty: 1 on 02/15/2022 by Kathrine Salgado DPM at [facility] Left: Toe [employer] 40 / / Description:LOAD # 2 7 [id number] 2ND TOE Explanted Type [employer] Device Identifier Shelf Expiration Date Model / Serial / Lot K-Wire [employer] .[id number] - [id number] Explanted:Qty: 1 on 02/15/2022 at [facility] Left: Toe [employer] 45 / / Description:SECOND TOE LOAD # 2 7 [id number] Wire Kirs .[id number] [employer] - [id number] Explanted:Qty: 1 on 02/15/2022 at [facility] Left: Toe [employer] 1645-10-000 / / Description:LOAD # 2 7 [id number] 2 Wire Kirs .[id number] Smooth 6/Pk 1644-10-000 Depuy/Pete - [id number] Explanted:Qty: 1 on 02/15/2022 by Kathrine Salgado DPM at [facility] Left: Toe [employer] [id number] / / Description:LOAD # 2 7 [id number] Procedures Procedure Name Priority Date/Time Associated Diagnosis Comments HEMOGLOBIN Routine 2024 8:34 AM CDT Morbid obesity (HC) COMP METABOLIC PANEL Routine 2024 8:34 AM CDT Morbid obesity (HC) Hyperlipidemia, unspecified hyperlipidemia type HTN (hypertension) HEMOGLOBIN A1C Routine 2024 8:34 AM CDT Morbid obesity (HC) LIPID PANEL W REFLEX MEASURED LDL Routine 2024 8:34 AM CDT Morbid obesity (HC) High triglycerides VITAMIN D 25 (DEFICIENCY) Routine 2024 8:34 AM CDT Morbid obesity (HC) Postsurgical hypothyroidism High triglycerides VITAMIN B12 Routine 2024 8:34 AM CDT Morbid obesity (HC) Postsurgical hypothyroidism High triglycerides from Last 3 Months Results * (ABNORMAL) HEMOGLOBIN A1C SCREENING (2024 8:34 AM CDT) HEMOGLOBIN A1C SCREENING 9.5(H) <=6.4 % 2024 5:53 PM CDT [facility] Blood BLOOD SPECIMEN / Unknown Venipuncture / Unknown 2024 8:34 AM CDT 2024 8:34 AM CDT [facility] - 2024 5:53 PM CDT ? (<5.7%) ?Normal ? (5.7% to 6.4%) ? Indicates prediabetes ? (>=6.5%) ? Confirms diabetes Falsely low levels may be seen with: Recent Transfusion, Recent Significant Blood Loss, Hemolytic Diseases, or Falsely elevated levels may be seen with: Untreated Anemias, Splenectomy Dnug Ponce MD CHEMISTRY [facility] [address] [place] [address], * (ABNORMAL) LIPID PANEL W REFLEX MEASURED LDL (2024 8:34 AM CDT) CHOLESTEROL,TOTAL 174 100 - 199 mg/dL 2024 5:52 PM CDT [facility] Comment: Cholesterol, Total Reference Ranges Desirable <200 mg/dL Borderline 200-239 mg/dL High >=240 mg/dL TRIGLYCERIDES 319(H) <150 mg/dL 2024 5:52 PM CDT [facility] HDL CHOLESTEROL 46 >40 mg/dL 5:52 PM CDT [facility] NON-HDL CHOLESTEROL 128 <145 mg/dl 2024 5:52 PM CDT [facility] CHOL/HDL RATIO 3.78 <4.50 2024 5:52 PM CDT [facility] LDL CHOLESTEROL 64 <=130 mg/dL 2024 5:52 PM CDT [facility] VLDL CHOLESTEROL 64(H) <=30 mg/dL 2024 5:52 PM CDT [facility] PROVIDER ORDERED STATUS FASTING 2024 5:52 PM CDT [facility] Blood BLOOD SPECIMEN / Unknown Venipuncture / Unknown 2024 8:34 AM CDT 2024 8:34 AM CDT Dung Ponce MD CHEMISTRY Performing Organization Address [facility] Co de Phone Number [facility] [address] [place] [address], * VITAMIN D 25 (DEFICIENCY) (2024 8:34 AM CDT) VITAMIN D TOTAL 71.6 20.0 - 80.0 ng/mL 2024 5:52 PM CDT [facility] Blood BLOOD SPECIMEN / Unknown Venipuncture / Unknown 2024 8:34 AM CDT 2024 8:34 AM CDT Narrative [facility] - 2024 5:52 PM CDT ? Vitamin D Status Deficiency: ? <20 ng/mL Insufficiency: ?20-29 ng/mL Sufficiency: ?30-80 ng/mL Possible Toxicity: ??>80 ng/mL Based on [place] of [employer] recommendations Biotin supplements may cause clinically significant interference for this test assay. ??If interference is suspected, it is strongly recommended that biotin is discontinued for at least one week prior to retesting. Dung Ponce MD SEND OUTS Performing Organization Address [facility] Co de Phone Number [facility] [address] [place] [address], [place] * HEMOGLOBIN (2024 8:34 AM CDT) HEMOGLOBIN 16.1 13.5 - 17.5 g/dL 2024 8:37 AM CDT [facility] MCV 83 80 - 100 fL 2024 8:37 AM CDT [facility] Blood BLOOD SPECIMEN / Unknown Venipuncture / Unknown 2024 8:34 AM CDT 2024 8:34 AM CDT Narrative [facility] - 2024 8:37 AM CDT This procedure was originally ordered at [facility] [employer] [facility]. Dung Ponce MD HEMATOLOGY [facility] [address] [place] [address], * (ABNORMAL) VITAMIN B12 (2024 8:34 AM CDT) Pathologist [facility] VITAMIN B12 179(L) 232 - 1,245 pg/mL 2024 5:52 PM CDT [facility] Blood BLOOD SPECIMEN / Unknown Venipuncture / Unknown 2024 8:34 AM CDT 2024 8:34 AM CDT Narrative [facility] - 2024 5:52 PM CDT Biotin supplements may cause clinically significant interference for this test assay. ??If interference is suspected, it is strongly recommended that biotin is discontinued for at least one week prior to retesting. Dung Ponce MD CHEMISTRY [facility] [address] [place] [address], [place] * (ABNORMAL) COMP METABOLIC PANEL (2024 8:34 AM CDT) Pathologist [facility] SODIUM 139 136 - 145 mmol/L 2024 5:52 PM CDT [facility] POTASSIUM 4.0 3.5 - 5.1 mmol/L 2024 5:52 PM T [facility] CHLORIDE 100 98 - 107 mmol/L 2024 5:52 PM T [facility] CO2,TOTAL 26 22 - 29 mmol/L 2024 5:52 PM T [facility] ANION GAP 13 5 - 18 2024 5:52 PM T [facility] GLUCOSE 205(H) 70 - 99 mg/dL 2024 5:52 PM T [facility] CALCIUM 9.3 8.6 - 10.0 mg/dL 2024 5:52 PM T [facility] BUN 11 6 - 20 mg/dL 2024 5:52 PM T [facility] CREATININE 1.25(H) 0.70 - 1.20 mg/dL 2024 5:52 PM T [facility] BUN/CREAT RATIO 9(L) 10 - 20 5:52 PM T [facility] eGFR 67(L) >90 mL/min/1.7 3m2 2024 5:52 PM T [facility] Comment:As of 2021, eG FR is calculated by the CKD-EPI creatinine equation without race adjustment. ??eGFR can be influenced by muscle mass, exercise, and diet. ??The reported eGFR is an estimation only and is only applicable if the renal function is stable. ALBUMIN 4.3 4.0 - 4.9 g/dL 2024 5:52 PM CDT [facility] PROTEIN,TOTAL 6.6 6.0 - 8.0 g/dL 2024 5:52 PM T [facility] BILIRUBIN,TOTAL 1.0 0.0 - 1.2 mg/dL 2024 5:52 PM CDT [facility] ALK PHOSPHATASE 65 40 - 129 IU/L 2024 5:52 PM CDT [facility] ALT (SGPT) 30 10 - 50 IU/L 2024 5:52 PM CDT [facility] AST (SGOT) 25 10 - 50 IU/L 2024 5:52 PM CDT [facility] Blood BLOOD SPECIMEN / Unknown Venipuncture / Unknown 2024 8:34 AM CDT 2024 8:34 AM CDT Dung Ponce MD [facility]MISTRY [facility] [address] [place] [address], [place] from Last 3 Months Advance Directives * Full Code (Latest Code Status on File) Date Activated Date Inactivated Comments 02/15/2022 8:03 AM 02/15/2022 2:58 PM Question Answer Comments Code Status Discussion: Unable to Assess Preferences, Provider to review later Care Teams Lining Stitcher Relationship Specialty Start Date End Date Oliver Lilly MD [address] [place] [address] PCP - General Emergency Medicine 04/02/16 Josh Salamanca MD [address] [place] [address] Endocrinology 08/22/22 Lena Bennett RN [address] [place] [address] Nurse Clinician Registered Nurse 12/23/23 Dung Ponce MD [address] [place] [address] Surgery - General 12/23/[address] [place] [address] Registered Dietitian Shoe Handler 12/23/23
== END 2024-03-04 14:50 | disposition home or self-care (01) ==
LOC: NFLDREF 14:51
PROVIDERS: PCP Internal Medicine; Visit Provider Internal Medicine
DX: E11.9 Type 2 diabetes mellitus without complications (principal); I10 Essential (primary) hypertension
CPT/HCPCS: 80053

== ENCOUNTER 2024-05-19 10:05 | Outpatient (CLI) | payer OTHER, SELFPAY | END 2024-05-19 10:06 | disposition home or self-care (01) | LOC: NFLDREF 19:32 | PROVIDERS: PCP Internal Medicine; Referring Provider Internal Medicine; Visit Provider Internal Medicine | DX: Q63.1 Lobulated, fused and horseshoe kidney (principal) | CPT/HCPCS: 87086 ==

== ENCOUNTER 2024-07-09 09:22 | Outpatient (CLI) | payer OTHER, SELFPAY | END 2024-07-09 09:23 | disposition home or self-care (01) | LOC: NFLDREF 09:23 | PROVIDERS: PCP Internal Medicine; Visit Provider Internal Medicine | DX: E11.9 Type 2 diabetes mellitus without complications (principal); C73 Malignant neoplasm of thyroid gland | CPT/HCPCS: 84439; 84443 ==

== ENCOUNTER 2024-10-14 16:15 | Outpatient (CLI) | payer OTHER, SELFPAY ==
--- NOTE | 2024-10-14 16:30 | CRLHL7_ITS ---
For Patients: As a result of the Century Cures Act, medical imaging exams and procedure reports are released immediately into your electronic medical record. You may view this report before your referring provider. If you have questions, please contact your health care provider. INDICATION: testicular cancer surveillance TECHNIQUE: Chest 2 views COMPARISON: None FINDINGS: Cardiovascular and mediastinum: Cardiac silhouette is mildly prominent. Lungs and pleural spaces: Lungs are clear. No sign of infiltrate or mass. No sign of pleural effusion. No pneumothorax. Bones and soft tissues: Postop changes left shoulder. Chronic deformity of the right distal clavicle and mid left clavicle. IMPRESSION: No suspicious findings. Dictated by Gomez Byrnes MD @ 10/15/2024 11:15:22 AM (Electronically Signed)
[2024-10-14 16:49] LABS: Basophils Absolute Auto 0.04 K/uL (0.00-0.30); Basophils Percent Auto 0.6 % (0.0-3.0); Eosinophils Absolute Auto 0.08 K/uL (0.00-0.50); Eosinophils Percent Auto 1.1 % (0.0-7.0); Hematocrit 45.6 % (37.0-53.0); Hemoglobin* 14.8 gm/dL (13.5-17.5); Lymphocytes Absolute Auto 1.74 K/uL (0.90-2.90); Lymphocytes Percent Auto 24.5 % (20-44); Mean Corpuscular HGB Conc 33 gm/dL (32-36); Mean Corpuscular Hemoglobin 27 pg (26-34); Mean Corpuscular Volume 84 fL (80-100); Monocytes Percent Auto 8.4 % (0.0-11.0); Neutrophils Absolute Auto 4.65 K/uL (1.7-7.0); Neutrophils Percent Auto 65.4 % (42.0-72.0); Platelet Count* 210 K/uL (140-440); RDW Coefficient of Variation % 13.3 % (11.5-15.5); White Blood Count* 7.11 K/uL (4.50-11.00)
[2024-10-14 16:50] LABS: Slide Review Reflex No
[2024-10-14 17:04] LABS: Alanine Aminotransferase* 33 U/L (4-50); Albumin* 4.6 g/dL (3.3-5.0); Alkaline Phosphatase* 58 U/L (40-150); Anion Gap 8 mEq/L (7-15); Aspartate Amino Transferase* 37 U/L (12-35); Bilirubin Total* 0.8 mg/dL (0.1-1.5); Blood Urea Nitrogen* 24 mg/dL (7-30); Carbon Dioxide* 35 mmol/L (20-32); Chloride* 97 mmol/L (96-114); Creatinine* 1.3 mg/dL (0.5-1.5); Estimated Glomerular Filt Rate 64 ml/min; Potassium* 3.9 mmol/L (3.6-5.1); Sodium* 140 mmol/L (135-149); Total Protein* 7.6 g/dL (6.0-8.3)
[2024-10-14 17:05] LABS: Calcium* 9.9 mg/dL (8.4-10.6); Glucose* 94 mg/dL (60-115); Lactate Dehydrogenase* 201 U/L (120-246)
[2024-10-16 07:06] LABS: Alpha Fetoprotein Tumor Marker 2 ng/mL (0-9)
[2024-10-16 13:57] LABS: Beta-hCG Quant Tumor Marker <1 IU/L (0-3)
== END 2024-10-14 16:16 | disposition home or self-care (01) ==
LOC: RAD 16:16
PROVIDERS: PCP Internal Medicine; Visit Provider Physician Assistant
DX: C49.9 Malignant neoplasm of connective and soft tissue, unspecified (principal); C73 Malignant neoplasm of thyroid gland
CPT/HCPCS: 36415; 71046; 80053; 82105; 83615; 84702; 85025

== ENCOUNTER 2024-10-27 15:00 | Outpatient (RCR) | payer OTHER, SELFPAY ==
[2024-05-05 11:15] LABS: Albumin* 4.4 g/dL (3.3-5.0); Chloride* 98 mmol/L (96-114); Potassium* 3.5 mmol/L (3.6-5.1); Sodium* 139 mmol/L (135-149)
[2024-05-05 11:18] LABS: Alanine Aminotransferase* 28 U/L (4-50); Alkaline Phosphatase* 55 U/L (40-150); Anion Gap 10 mEq/L (7-15); Aspartate Amino Transferase* 31 U/L (12-35); Blood Urea Nitrogen* 20 mg/dL (7-30); Calcium* 9.6 mg/dL (8.4-10.6); Carbon Dioxide* 31 mmol/L (20-32); Creatinine* 1.2 mg/dL (0.5-1.5); Estimated Glomerular Filt Rate 70 ml/min; Glucose* 126 mg/dL (60-115); Lactate Dehydrogenase* 181 U/L (120-246); Total Protein* 7.2 g/dL (6.0-8.3)
[2024-05-05 11:25] LABS: Eosinophils Percent Auto 0.9 % (0.0-7.0); Hematocrit 44.9 % (37.0-53.0); Hemoglobin* 14.5 gm/dL (13.5-17.5); Lymphocytes Percent Auto 25.6 % (20-44); Mean Corpuscular HGB Conc 32 gm/dL (32-36); Mean Corpuscular Hemoglobin 27 pg (26-34); Mean Corpuscular Volume 84 fL (80-100); Monocytes Percent Auto 7.7 % (0.0-11.0); Neutrophils Percent Auto 64.1 % (42.0-72.0); Platelet Count* 185 K/uL (140-440); Red Blood Count 5.37 m/uL (4.30-5.90); White Blood Count* 6.34 K/uL (4.50-11.00)
[2024-05-05 11:26] LABS: Basophils Absolute Auto 0.04 K/uL (0.00-0.30); Basophils Percent Auto 0.6 % (0.0-3.0); Eosinophils Absolute Auto 0.06 K/uL (0.00-0.50); Immature Granulocytes Abs Auto 0.07 K/uL (0.00-0.30); Immature Granulocytes Pct Auto 1.1 %; Lymphocytes Absolute Auto 1.62 K/uL (0.90-2.90); Monocytes Absolute Auto 0.49 K/UL (0.00-0.90); Neutrophils Absolute Auto 4.06 K/uL (1.7-7.0); Slide Review Reflex No
[2024-05-06 17:13] LABS: Alpha Fetoprotein Tumor Marker 2 ng/mL (0-9)
[2024-05-07 09:34] LABS: Beta-hCG Quant Tumor Marker <1 IU/L (0-3)
== END 2024-11-01 23:59 | disposition home or self-care (01) ==
LOC: CCIC 15:00
PROVIDERS: PCP Internal Medicine; Referring Provider Internal Medicine; Visit Provider Internal Medicine Hematology & Oncology
DX: C62.92 Malignant neoplasm of left testis, unspecified whether descended or undescended (principal); C73 Malignant neoplasm of thyroid gland; D75.1 Secondary polycythemia
CPT/HCPCS: 36415; 80053; 82105; 83615; 84703; 84704; 85025; 99214; 99215; G0463

== ENCOUNTER 2024-11-02 15:54 | Outpatient (CLI) | payer OTHER, SELFPAY ==
--- NOTE | 2024-11-02 16:00 | CRLHL7_ITS ---
For Patients: As a result of the Century Cures Act, medical imaging exams and procedure reports are released immediately into your electronic medical record. You may view this report before your referring provider. If you have questions, please contact your health care provider. INDICATION: patient feeling lump of right testicle COMPARISON: 03/09/2016 TECHNIQUE: Hubbard scale imaging was performed of the scrotum. In addition color Doppler and spectral Doppler analysis was performed of the right testicle. FINDINGS: The right testicle demonstrates normal arterial and venous blood flow on color Doppler and spectral Doppler analysis. The right testicle has uniform echogenicity with no evidence of a suspicious mass or area of inflammation. Status post left orchiectomy. The right testis measures 3.7 x 2.2 x 4.2 cm in size. Right varicocele is present. Right epididymal head cyst measures 6 x 4 x 5 millimeters. No hydrocele. IMPRESSION: Normal right testicle. Right epididymal head cyst. Right varicocele. Dictated by Gomez Byrnes MD @ 11/03/2024 6:53:14 AM (Electronically Signed)
== END 2024-11-02 15:55 | disposition home or self-care (01) ==
LOC: US 15:54
PROVIDERS: PCP Internal Medicine; Visit Provider Internal Medicine Hematology & Oncology
DX: C49.9 Malignant neoplasm of connective and soft tissue, unspecified (principal); N50.9 Disorder of male genital organs, unspecified; N50.3 Cyst of epididymis; I86.1 Scrotal varices
CPT/HCPCS: 76870; 93976

== ENCOUNTER 2025-04-21 15:26 | Outpatient (CLI) | payer OTHER, SELFPAY ==
--- NOTE | 2025-04-21 16:00 | CRLHL7_ITS ---
For Patients: As a result of the Century Cures Act, medical imaging exams and procedure reports are released immediately into your electronic medical record. You may view this report before your referring provider. If you have questions, please contact your health care provider. INDICATIONS: Cough. TECHNIQUE: CT chest was acquired with 75 cc of Isovue 370 IV contrast. COMPARISON: 10/18/2022. FINDINGS: No pleural or pericardial effusion. Calcified nodes consistent with prior granulomatous disease. No pathologic lymphadenopathy. Aberrant right subclavian artery, as before. Thoracic aorta and main pulmonary arteries are normal in caliber. Mild coronary artery calcifications. Heart size is within normal limits. Soft tissues of the thoracic wall are unremarkable. No pneumothorax. Central airways are patent. Stable 3 and 5 mm peripheral right lower lobe nodules on images 53 and 54 of series 2. Incidental calcified granuloma in the left lower lobe. Lungs otherwise clear. Calcified granulomata in the liver and spleen. Colonic diverticulosis. Visualized upper abdomen is otherwise unremarkable. Degenerative changes of the spine. No acute or suspicious osseous abnormality. IMPRESSION: No evidence of acute cardiopulmonary disease. Dictated by Marcus Cedeño MD @ 04/23/2025 1:16:07 PM Please note that all CT scans at this facility use dose modulation, iterative reconstruction, and/or weight-based dosing when appropriate to reduce radiation dose to as low as reasonably achievable. Dictated by: Marcus Cedeño MD @ 04/23/2025 13:16:28 (Electronically Signed)
== END 2025-04-21 15:27 | disposition home or self-care (01) ==
LOC: CT 15:27
PROVIDERS: PCP Internal Medicine; Visit Provider Internal Medicine
DX: R05.9 Cough, unspecified (principal)
CPT/HCPCS: 71260; Q9967